=== PATIENT | female | born 1940 | race Caucasian/White ===

== ENCOUNTER 2017-10-22 05:44 | Emergency (ER) | payer MEDICARE, OTHER ==
[~2017-10-22] VITALS: Ht 165.1 cm; Wt 43.1 kg
--- NOTE | 2017-10-22 06:12 | ED Lower Extremity ---
General Chief Complaint: Lower Extremity Stated Complaint: BLOOD CLOTS Nursing Triage Note: Patient was transferred from [facility] secondary to right knee pain. Patient has an elevated d-dimer and elevated CRP. Patient is being evaluated for a possible DVT. Nursing Sepsis Screen: No Definite Risk Source: patient Exam Limitations: no limitations History of Present Illness Date Seen by Provider: Oct 22, 2017 Time Seen by Provider: 05:54 Initial Comments Patient presents to ER by EMS from [place], [place] ER where she was seen earlier today for complaint of right lower extremity pain and swelling around the knee. She has a history of 45 days ago she was getting up to answer the door holguin and stumbled and fell and broke her right arm as well as with a abrasion on her right knee. She was workup at that time and put into a splint for her right arm. This morning however she woke up with the new onset of pain and swelling on her knee and right lower extremity. Says her legs feel pleasant and difficult to lift. She went to the ER and they x-rayed her knee told her there was no fracture. They did some blood work which they told her was remarkable for a d-dimer of 3500 and CRP elevated 127. She was given some sort of pain medicine which is helping control her pain now. She's having no nausea. She has not taken her morning meds yet. Patient does have a history of clots. Fairly sedentary several days she says. Allergies and Home Medications Allergies Coded Allergies: No Known Drug Allergies (Unverified , 10/22/17) Patient Home Medication List Home Medication List Reviewed: Yes Constitutional: No chills, No diaphoresis, No fever; malaise, weakness EENTM: No hearing loss, No ear pain Respiratory: No cough, No short of breath Cardiovascular: No chest pain, No palpitations Gastrointestinal: No abdominal pain, No constipation, No diarrhea, No nausea Genitourinary: No decreased output, No discharge, No dysuria Musculoskeletal: see HPI; No back pain; joint pain Past Sfcyrrs-Ndybhb-Ynqlkf Hx Patient Social History Alcohol Use: Denies Use Recreational Drug Use: No Smoking Status: Never a Smoker Recent Foreign Travel: No Contact w/Someone Who Travel: No Recent Infectious Disease Expo: No Recent Hopitalizations: No Physical Abuse: No Sexual Abuse: No Seasonal Allergies Seasonal Allergies: No Past Medical History Surgeries: Yes (hemicolectomy) Respiratory: No Cardiac: Yes Hypertension Neurological: No Genitourinary: No Gastrointestinal: No Musculoskeletal: Yes (osteopenia, osteoarthritis) Endocrine: Yes Hypothyroidsim HEENT: Yes (keratoconjunctivitis sicca) Glaucoma Colon Psychosocial: No Nursing Suicide Risk Score: 0 Integumentary: No Physical Exam Vital Signs Vital Signs - First Documented 10/22/17 05:52 Temp 98.6 Pulse 94 Resp 14 B/P (MAP) 156/66 (96) Pulse Ox 98 O2 Delivery Room Air Capillary Refill : Less Than 3 Seconds Height, Weight, BMI Height: 5', 5.00" Weight: 95lbs oz, 43.648707al Method:Estimated ,BMI General Appearance: WD/WN, no apparent distress HEENT: PERRL/EOMI, pharynx normal Cardiovascular: normal peripheral pulses (bilateral posterior tibial pulses are 2 out of 4 symmetric), regular rate, rhythm Respiratory: chest non-tender, no respiratory distress, no accessory muscle use Gastrointestinal: normal bowel sounds, no organomegaly Hips: bilateral hip non-tender, bilateral hip normal inspection, bilateral hip normal range of motion, bilateral hip no evidence of injury Legs: right leg other (positive for Feliciano's sign) Knees: left knee non-tender, left knee normal inspection, left knee normal range of motion, left knee no evidence of injury; right knee bone tenderness, right knee joint effusion (moderate signs), right knee pain, right knee soft tissue tenderness, right knee swelling Neurologic/Tendon: normal sensation, normal motor functions, normal tendon functions, responds to pain Neurologic/Psychiatric: no motor/sensory deficits, alert, oriented x 3 Skin: normal color, warm/dry Progress/Results/Core Measures Results/Orders My Orders Orders - MAURA LAND Venous Lower Ext Rt (10/22/17 06:05) Ua Culture If Indicated (10/22/17 06:05) Ketorolac Injection (Toradol Injection) (10/22/17 08:15) General/Regular (10/22/17 Breakfast) Medications Given in ED Current Medications Medications Dose Ordered Sig/Giovanni Route Start Time Stop Time Status Last Admin Dose Admin Ketorolac Tromethamine 15 mg ONCE ONCE IM 10/22/17 08:15 10/22/17 08:16 DC 10/22/17 08:20 15 MG Vital Signs/I&O 10/22/17 05:52 Temp 98.6 Pulse 94 Resp 14 B/P (MAP) 156/66 (96) Pulse Ox 98 O2 Delivery Room Air Blood Pressure Mean: 96 Progress Progress Note #1: Time: 07:55 Progress Note Patient got up to go to the bathroom with 2 nurse assist and standby walking assessed. She is having a little more pain now so we have offered her some ketorolac IM. We have discussed doing some inpatient acute rehabilitation for physical therapy given her knee effusion and her daughter is in favor of this so we called the air you and no one was available to 9:00. We called and left messages with the liaison's and will get her pain under better control of her comfortable while waiting for a consult. Progress Note #2: Time: 10:26 Progress Note Patient has met with the acute rehabilitation unit for sameer Aguilar and elected to utilize their services and I think she would be an excellent candidate for inpatient rehabilitation. Diagnostic Imaging Diagonstic Imaging: Xray Plain Films/CT/US/NM/MRI: knee (right) Comments Study from outside hospital 10/22/17 shows 3 view right knee soft tissue swelling and joint effusion seen specifically in the lateral view. There is an accessory ossicle in the posterior compartment. there are no acute fractures. Diagonstic Imaging: Xray Plain Films/CT/US/NM/MRI: other (right wrist) Comments Right wrist from 10/22/17 outside hospital CD. No evidence of an acute fracture. Reviewed: Reviewed by Me Diagonstic Imaging: Xray Plain Films/CT/US/NM/MRI: knee (r) Comments Shoulder 10/17/2017 on CD from outside hospital: Comminuted minimally displaced fracture of the right proximal humerus involving the surgical neck and both tuberosities without significant displacement or angulation of the fracture fragments. Mild acromioclavicular osteoarthritis. Reviewed: Other (outside report reviewed on cd), Reviewed by Me Diagonstic Imaging: Ultrasound Plain Films/CT/US/NM/MRI: leg (r venous) Comments No evidence of DVT right leg. NAME: ALISHA YEUNG [facility] REC#: [id number] PHYSICIAN: MAURA LAND MD CC: SALAS OLIVA DO; MAURA LAND Page 1 of 1 RADIOLOGY REPORT VIA [facility], [facility]. [place], [place] CC: SALAS OLIVA DO; MAURA LAND Page 1 of 1 RADIOLOGY REPORT NAME: ALISHA YEUNG [facility] REC#: [id number] PT STATUS: REG ER : 1940 PHYSICIAN: MAURA LAND MD ADMIT DATE: 10/22/17/ER Signed Date of Exam: 10/22/17 US VENOUS LOWER EXT RT INDICATION: Right leg pain TECHNIQUE: Grayscale with color-flow and Doppler waveform evaluation of the right lower extremity deep venous system. CORRELATION STUDY: None FINDINGS: Color and grayscale sonographic images demonstrate no intraluminal defect within the visualized portion of the common femoral, superficial femoral and/or popliteal veins to suggest thrombus formation. These vessels demonstrate normal response to compression and augmentation. No soft tissue fluid collection. IMPRESSION: 1. Negative for deep venous thrombosis of the right leg. Dictated by: Dictated on workstation # [id number] Dict: 10/22/17744 Trans: 10/22/17744 Interpreted by: SALAS OLIVA DO Electronically signed by: SALAS OLIVA DO 10/22/1745 Reviewed: Reviewed by Me Departure Communication (Admissions) Time/Spoke to Admitting Phy: 10:30 Discussed the case and labs imaging with Dr. Muñoz and he is more than happy to admit the patient to inpatient rehabilitation. Impression Primary Impression: Fall Qualified Codes: W19.XXXD - Unspecified fall, subsequent encounter Additional Impressions: Effusion, right knee Physical debility Disposition: ADMITTED INPATIENT Condition: Stable Admissions Decision to Admit Reason: Admit from ER (General) Decision to Admit/Date: Oct 22, 2017 Time/Decision to Admit Time: 10:30 MAURA LAND Oct 22, 2017 06:12
--- NOTE | 2017-10-22 07:47 | Diagnostic Imaging Report ---
INDICATION: Right leg pain TECHNIQUE: Grayscale with color-flow and Doppler waveform evaluation of the right lower extremity deep venous system. CORRELATION STUDY: None FINDINGS: Color and grayscale sonographic images demonstrate no intraluminal defect within the visualized portion of the common femoral, superficial femoral and/or popliteal veins to suggest thrombus formation. These vessels demonstrate normal response to compression and augmentation. No soft tissue fluid collection. IMPRESSION: 1. Negative for deep venous thrombosis of the right leg. Dictated by: Dictated on workstation # [id number]
[2017-10-22] MEDS ORDERED: KETOROLAC 30 MG/ML VIAL IM ONE (08:15)
[2017-10-22 11:11] VITALS: BP 133/60
[2017-10-22] MEDS ORDERED: DILT180C90 PO (15:51)
[2017-10-22] MEDS ORDERED: POTA10TA10 PO (15:51)
[2017-10-22] MEDS ORDERED: CARB15DR58 OU (15:51)
[2017-10-22] MEDS ORDERED: LEVO125T6 PO (15:51)
[2017-10-22] MEDS ORDERED: FISH1CAP3 PO (15:51)
[2017-10-22] MEDS ORDERED: MULT1TAB65 PO (15:51)
[2017-10-22] MEDS ORDERED: CLON1PAT TD (15:51)
[2017-10-22] MEDS ORDERED: MINE3.5O29 OU (15:51)
[2017-10-22] MEDS ORDERED: GARL10002 PO (15:51)
[2017-10-22] MEDS ORDERED: SIMV40TA4 PO (15:51)
[2017-10-22] MEDS ORDERED: FOLI0.8C PO (15:51)
[2017-10-22] MEDS ORDERED: CALC1TAB4 PO (15:51)
[2017-10-22] MEDS ORDERED: CYAN10006 PO (15:51)
[2017-10-22] MEDS ORDERED: LISI-552 PO (15:51)
[2017-10-22] MEDS ORDERED: SENN-109 PO (15:51)
[2017-10-22] MEDS ORDERED: POTA10TA36 PO (15:51)
[2017-10-22] MEDS ORDERED: BISA5TAB49 PO (15:51)
[2017-10-22] MEDS ORDERED: CARB10DR OU (15:51)
[2017-10-22] MEDS ORDERED: ASPI-983 PO (15:51)
[2017-10-22] MEDS ORDERED: LISI40TA PO (16:18)
[2017-10-22] MEDS ORDERED: TRAM50TA2 PO (16:18)
[2017-10-22] MEDS ORDERED: DLT90CCR PO (16:18)
[2017-10-22] MEDS ORDERED: CLON1PAT34 TD (16:18)
[2017-10-22] MEDS ORDERED: CLON1PAT33 TD (16:38)
[2017-11-01] MEDS ORDERED: HYDR-3923 PO (16:58)
[2017-11-01] MEDS ORDERED: LEVO125T PO (16:58)
[2017-11-01] MEDS ORDERED: TRAM50TA2 PO (16:58)
[2017-11-01] MEDS ORDERED: LISI-556 PO (16:58)
[2017-11-01] MEDS ORDERED: ACET-77 PO (16:58)
== END 2017-10-22 11:12 | disposition other institution (70) ==
LOC: ER 05:47
DX: M25.461 Effusion, right knee (principal); R54 Age-related physical debility; I10 Essential (primary) hypertension; E03.9 Hypothyroidism, unspecified; Z90.89 Acquired absence of other organs
CPT/HCPCS: 96372

== ENCOUNTER 2017-10-22 10:30 | Inpatient (IN) | payer MEDICARE, OTHER ==
[~2017-10-22] VITALS: Ht 165.1 cm; Wt 59.1 kg
[2017-10-22 11:27] VITALS: BP 165/72
[2017-10-22] MEDS ORDERED: ACETAMINOPHEN 500 MG TAB (TYLENOL) PO PRN (11:45)
--- NOTE | 2017-10-22 12:21 | Physical Therapy Evaluation ---
PT Evaluation-General Medical Diagnosis Admission Date Oct 22, 2017 at 10:30 Medical Diagnosis: R humerus fx, R knee effusion Onset Date: Oct 17, 2017 Therapy Diagnosis Therapy Diagnosis: impaired mobility, strength, endurance, balance Height/Weight Height (Feet): 5 Height (Inches): 5.00 Weight (Pounds): 123 Weight (Ounces): 6.0 Weight Bear Status Right Lower Extremity: Right Weight Bearing/Tolerated Referral Physician: Toni Reason for Referral: Evaluation/Treatment Medical History Pertinent Medical History: HTN, Hypothroidism Additional Medical History hemicolectomy, osteopenia, osteoarthritis, glaucoma Current History Patient fell at home and broke proximal right humerus and she wears an immobilizer, she states she is not to move her right shoulder but can move her elbow and wrist. Patient recently developed right knee pain and swelling. Reviewed History: Yes Social History Home: Single Level Entry Into Home: Stairs Without Railing PT Steps Into Home: 2 Patient states she has a grab bar to hold onto when going up the stairs to enter the home. Prior/Core FIM Prior Level of Function Functional [place] Measure 0=Not Assessed/NA 4=Minimal Assistance 1=Total Assistance 5=Supervision or Setup 2=Maximal Assistance 6=Modified [place] 3=Moderate Assistance 7=Complete [place] Bed Mobility: 7 Transfers (B,C,W/C) (FIM): 7 Gait: 7 PT Evaluation-Current Subjective Patient in bed pre tx, agrees to PT, no complaints of pain at rest. Will be co- treating with OT due to poor patient mobility and endurance, and safety concerns. Pt/Family Goals to be independent at home Objective Patient Orientation: Person, Place, Situation right arm immobilizer ROM/Strength ROM Lower Extremities right knee flexion 50 degrees, extension +10 degrees Strenght Lower Extremities RLE not tested due to pain, LLE hip flexion 4/5, knee flexion 4/5, knee extension 4+/5, dorsiflexion 5/5 Neuromuscular (Tone, Coordination, Reflexes) NT Sensory Vision: Blind Legally Hearing: Functional Sensation Right Lower Extremit: Intact Sensation Left Lower Extremity: Intact Transfers Functional [place] Measure 0=Not Assessed/NA 4=Minimal Assistance 1=Total Assistance 5=Supervision or Setup 2=Maximal Assistance 6=Modified [place] 3=Moderate Assistance 7=Complete IndependenceIRFPAI Quality Coding Scale 6 Independent with activity with or without an assistive device 5 Patient requires set up or clean up by helper. Patient completes activity by themselves 4 Supervision or touching assist (CGA). [place] provide cues , steadying assist 3 The helper provides less than half the effort to complete the activity 2 The helper provides more than half the effort to complete the activity 1 Dependent. The helper does all the effort to complete an activity 7 Patient refused to complete or attempt activity 9 The patient did not perform the activity before the current illness or injury 88 Not attempted due to Medical conditions or safety concerns Transfers (B, C, W/C) (FIM): 3 Scootin Rollin Roll Left to Right (QC): 3 Supine to/from Sit: 4 Sit to/from Stand: 3 bed t/f WC(FIM only if WC use): 4 Sit to Lying (QC): 3 Lying to Sitting/Side of Bed(Q: 3 Sit to Stand (QC): 2 Chair/Szs-rf-Bfenb Xfer(QC): 3 Patient performs bed mobility and supine <-> sit with min assist, sit to stand with mod assist from lower surfaces, and transfers with CGA. She needs a lot of cues for positioning, safety, and direction, a lot of it due to her poor vision. Gait Does the Patient Walk?: Yes Mode of Locomotion: Walk Anticipated Mode of Locomotion: Walk Gait (FIM): 1 Walk 10 feet (QC): 4 Distance: 10' Gait Level of Assist: 4 Gait Persons Needed: 1 Gait Assistive Device: Walker Pancho Comments/Gait Description Patient ambulated 10' with a hemiwalker with min assist. She ambulates very slowly, inches at a time. Feet have poor clearance and poor heel strike, and has flexed knees. Patient needs constant cues for direction and safety. Stairs If not tested on admit;explain Patient does not have the endurance or strength to perform stairs at this time. Right knee is too painful, she can barely ambulate. Balance Sitting Static: Good Sitting Dynamic: Good Standing Static: Fair Standing Dynamic: Fair Treatment Patient was toileted with mod assist. Assessment/Needs Patient has impaired mobility, strength, endurance, balance, limited ROM in right knee. She is at high risk for a fall. Rehab Potential: Fair PT Short Term Goals Short Term Goals Time Frame: Oct 29, 2017 Transfers (B,C,W/C) (FIM): 4 Gait (FIM): 1 Gait Distance Comment: 40' Gait Level of Assist: 4 Gait Assistive Device: Walker Pancho PT Breeder Service Technician Goals Breeder Service Technician Goals PT Breeder Service Technician Goals Time Frame: Nov 12, 2017 Transfers (B,C,W/C) (FIM): 5 Sit to Lying (QC): 4 Lying-Sitting on Side/Bed(QC): 4 Sit to Stand (QC): 4 Rollin Roll Left to Right (QC): 4 Chair/Kmu-kh-Akmoi Xfer(QC): 4 Car Transfer (QC): 4 Gait (FIM): 2 Distance: 50' Walk 10 feet (QC): 4 Walk 10ft-Uneven Surface(QC): 4 Walk 50ft with 2 Turns (QC): 4 Walk 150 ft (QC): 4 Gait Level of Assist: 4 Gait Assistive Device: Walker Pancho Stairs (FIM): 1 # of Steps: 1 1 Step (curb) (QC): 3 Stairs Level Of Assist: 4 PT Plan Problem List Problem List: Activity Tolerance, Functional Strength, Safety, Balance, Gait, Transfer, Bed Mobility, ROM Treatment/Plan Treatment Plan: Continue Plan of Care Treatment Plan: Bed Mobility, Concurrent Therapy, Education, Functional Activity Ritchie, Functional Strength, Group Therapy, Gait, Safety, Therapeutic Exercise, Transfers Treatment Duration: Nov 12, 2017 Frequency: At least 5 of 7 days/Wk (IRF) Estimated Hrs Per Day: 1.5 hours per day Patient and/or Family Agrees t: Yes Safety Risks/Education Patient Education: Gait Training, Transfer Techniques, Reviewed Precautions, Correct Positioning, Safety Issues Teaching Recipient: Patient Teaching Methods: Demonstration, Discussion Response to Teaching: Reinforcement Needed Discharge Recommendations Plan Patient will perform bed mobility and transfer training, balance and endurance training, functional strengthening, stair training, gait training, and education , to improve functional mobility and independence at home. Therapy D/C Recommendations: Home w/ Family Support, [facility] (TCU/[facility]) Time/GCodes Time In: 1121 Time Out: 1213 Total Billed Treatment Time: 41 Total Billed Treatment 1 visit EVM 10' GT 31' PT evaluation from 7439-2356, OT evaluation from 0713-4310. Cotreated from 1142 -1213 for 31 min of co-treat. JOSÉ MIGUEL DOOLEY PT Oct 22, 2017 12:20
--- NOTE | 2017-10-22 12:59 | Occupational Therapy Eval ---
OT Evaluation-General/PLF Medical Diagnosis Admission Date Oct 22, 2017 at 10:30 Medical Diagnosis: R humerus fx, R knee effusion Onset Date: Oct 17, 2017 Therapy Diagnosis Therapy Diagnosis: decr self care, wakness, decr funct use R UE, decr funct mob Height/Weight Height (Feet): 5 Height (Inches): 5.00 Weight (Pounds): 123 Weight (Ounces): 6.0 Precautions Precautions/Isolations: Standard Precautions Referral Physician: Toni Referral Reason: Evaluation/Treatment Medical History Pertinent Medical History: HTN, Hypothroidism, OA Additional Medical History Glaucoma, colon cancer, hemicholectomy, osteopenia. keratoconjunctivitis sicca. Hx blood clots Current History Patient fell at home and broke proximal right humerus. She wears an immobilizer and states she is not to move her right shoulder but can move her elbow and wrist. Patient recently developed right knee pain and swelling. Reviewed History: Yes Social History Home: Single Level Current Living Status: Alone Entry Into Home: Stairs Without Railing Steps Into Home: 2 ADL-Prior Level of Function ADL PLOF Comments Pt reported that she has been able to manage her basic self care needs. Because of her glaucoma, she no longer drives but is able to read large print and watch TV. She said that she can see many things in a room but that they are blurry. She is a retired school paraprofessional DME/Equipment: Bath Chair, Shower Hose Weaving Professor, Tall Toilet Drive Self: No OT Current Status Subjective Pt seen in room, up in bed, agreeable to OT. Pt stated that she doesn't have any pain when she is not moving but was unable to rate pain when she gets up. Appearance Alert, cooperative Mental Status/Objective Patient Orientation: Person, Place, Time (unsure of current date), Situation Attachments: Other-See Comments (Humeral immobilizer) Current Glasses/Contacts: Yes Hearing Aids: No Dentures/Partials: Yes (upper and lower) Hand Dominance: Right Upper Extremity ROM L UE WFL grossly. R UE limited at ends of range for elbow, forearm, wrist and fingers - due to edema Upper Extremity Sensation Pt reported no problems with sensation Upper Extremity Strength L UE grossly 4/5. R UE not tested but she moved uncomfortable out of immobilizer (elbow and distal) Edema: Significant edema R UE beginning at elbow and then distal ADL-Treatment ADL-Current Co-treat with PT due to decreased activity tolerance, pain that was reported prior to eval, significantly decreased functional mobility and limited UE use. OT worked on R UE, toilet transfers and toileting and PT worked on LEs, transfers and mobility. Pt was able to get up out of bed with min assist and walked very slowly to bathroom, using padilal cane. She needed mod assist to sit down on toilet and to get back up, limited by pain in R knee and inability to reach back with R hand. She used grab bar on L side but had difficulty with pulling up. BSc placed over toilet so that the next time she will be able to push up from toilet and reach back with L UE when sitting. She needed CGA when standing to manage clothing and was able to do hygiene, with trouble tearing off toilet paper with just one hand. PT reported giving her foam handle for silverware for L UE and daughter set up food - min assist before foam handle. Pt left up in recliner, R arm supported on pillow, legs elevated, all needs met. Functional [place] Measure 0=Not Assessed/NA 4=Minimal Assistance 1=Total Assistance 5=Supervision or Setup 2=Maximal Assistance 6=Modified [place] 3=Moderate Assistance 7=Complete IndependenceIRFPAI Quality Coding Scale 6 Independent with activity with or without an assistive device 5 Patient requires set up or clean up by helper. Patient completes activity by themselves 4 Supervision or touching assist (CGA). [place] provide cues , steadying assist 3 The helper provides less than half the effort to complete the activity 2 The helper provides more than half the effort to complete the activity 1 Dependent. The helper does all the effort to complete an activity 7 Patient refused to complete or attempt activity 9 The patient did not perform the activity before the current illness or injury 88 Not attempted due to Medical conditions or safety concerns Eating (FIM): 4 (Min assist, provided with foam builtup handle, setup to cut food) Eating (QC): 3 Toileting (FIM): 4 (CGA to manage clothing. Difficulty tearig off toilet paper. Tall toilet) Toileting Hygiene (QC): 4 (CGA) Toilet/Commode Transfer (FIM): 3 (Mod assist getting on/off tall toilet, grab bar on L side) Toilet Transfer (QC): 3 Education OT Patient Education: Modified ADL techniques, Purpose of tx/functional activities, Rehab process, Safety issues, Transfer techniques Teaching Recipient: Patient Teaching Methods: Demonstration, Discussion Response to Teaching: Verbalize Understanding, Return Demonstration, Reinforcement Needed OT Short Term Goals Short Term Goals Time Frame: Oct 29, 2017 Eating(FIM): 5 Toilet/Commode Transfer(FIM): 4 Additional Short Term Goals: 1-Demonstrate ADL Tasks, 2-Verbalize Understanding , 3-ImproveStrength/Ritchie 1=Demonstrate adherence to instructed precautions during ADL tasks. 2=Patient will verbalize/demonstrate understanding of assistive devices/ modifications for ADL. 3=Patient will improve strength/tolerance for activity to enable patient to perform ADL's. OT Alf Goals Patient Intake Representative Goals Time Frame: Nov 09, 2017 Eating (FIM): 5 Eating (QC): 5 Groomin Oral Hygiene (QC): 5 Bathing(FIM): 4 Shower/Bathe Self (QC): 3 Upper Body Dressing(FIM): 5 Upper Body Dressing (QC): 5 Lower Body Dressing(FIM): 5 Lower Body Dressing (QC): 5 On/Off Footwear (QC): 5 Toileting(FIM): 6 Toileting Hygiene (QC): 6 Toilet/Commode Transfer(FIM): 6 Toilet/Commode Transfer (QC): 6 Shower Transfer(FIM): 5 Additional Goals: 1-Demonstrate ADL Tasks, 2-Verbalize Understanding, 3- ImproveStrength/Ritchie 1=Demonstrate adherence to instructed precautions during ADL tasks. 2=Patient will verbalize/demonstrate understanding of assistive devices/ modifications for ADL. 3=Patient will improve strength/tolerance for activity to enable patient to perform ADL's. OT Education/Plan Problem List/Assessment Assessment: Decreased UE Strength, Dependent Transfers, Impaired Funct Balance , Impaired Self-Care Skills, Restricted Funct UE ROM Pt would benefit from skilled OT to increase her independence in basic self care to allow her to safely return home wit family support Discharge Recommendations Plan/Recommendations: Continue POC Treatment Plan/Plan of Care Treatment,Training & Education: Yes Patient would benefit from OT for education, treatment and training to promote independence in ADL's, mobility, safety and/or upper extremity function for ADL' s. Plan of Care: ADL Retraining, Functional Mobility, Group Exercise/Act as Ind ( education, exercise, act tolerance, functional mobility, R UE funct use, socialization), UE Funct Exercise/Act, UE Neuromus Re-Ed/Coord Treatment Duration: Nov 09, 2017 Frequency: At least 5 of 7 days/Wk (IRF) Estimated Hrs Per Day: 1.5 hours per day Agreement: Yes Rehab Potential: Fair Time/GCodes Start Time: 11:33 Stop Time: 12:13 Total Time Billed (hr/min): 41 Billed Treatment Time visit, evaluation moderate intensity 10 minutes, co-tx with PT 15 minutes functional activity, 16 minutes ADL MARIOLA COTTRELL OT Oct 22, 2017 12:59
--- NOTE | 2017-10-22 13:17 | ST Cognitive Linguistic Eval ---
Speech Evaluation-General Medical Diagnosis R humerus fx, R knee effusion Onset Date: Oct 17, 2017 Therapy Diagnosis Therapy Diagnosis: Cognitive Linguistic Skills WNL Referral Referring Physician: Dr. Stephen Muñoz Reason for Referral: Evaluation/Treatment Cognitive Evaluation Medical History Pertinent Medical History: HTN, Hypothroidism, OA Reviewed History: Yes Speech PLF-Current Status Prior Level of Function The patient denied new onset of cognitive, speech, or language deficits. Per patient, "Sometimes I walk in one room and forget why I walked in there but that doesn't happen anymore than it always did." Subjective The patient was seated upright in recliner upon entrance. The patient greeted the clinician and was agreeable to participation in the cognitive evaluation. Language Eval: Auditory Comprehends Simple Yes/No Ques: Functional Indent/Objects Multiple Michael: Functional Ident/Pics in Multiple Michael: Functional Follows 1-Step Commands: Functional Follows General Conversations: Functional The patient intermittently displays a delay in responses, however, consistently responds appropriately to questions. Language Eval: Verbal Language Completes Spontaneous Greeting: Functional Produces Auto, Serial Info: Functional Imitates Simple Words/Phrases: Functional Word Finding: Mild Requests Basic Needs: Functional States Basic Personal Info: Functional Expresses Complex Ideas: Functional Language Evaluation: Reading Per patient, she is unable (or limited) to read due to her poor vision. Cognitive Patient Orientation The patient is independently oriented to month, day of week, and year. Objective Cognitive Domain Attention: WNL Memory: Mild (Mild cueing required for recall.) Problem Solving: Mild (Minimal to mild cueing required for increased accuracy.) Objective Impression The patient demonstrated cognitive linguistic skills grossly within normal limits and baseline per patient and daughter. Communication/Social Cognition Comprehension: 5 Expression: 6 Social Interaction: 6 Problem Solvin Memory: 5 Speech Patient Assess Expression of Ideas/Wants: Exhibits (3) Understanding Verbal Content: Usually Understands (3) Brief Interview-Mental Status: Yes Repetition of Three Words: Three (3) Temporal Orientation: Year: Correct (3) Temporal Orientation: Month: Accurate within 5 days(2) Temporal Orientation: Day: Correct (1) Recall : Wear to say "Sock": Yes,after cueing (1) Recall : Color: Yes, after cueing (1) Recall : Bed: No, could not recall (0) Speech-Plan Treatment Plan Speech Therapy Treatment Plan: Discontinue ST No ST warranted. Frequency: Modified Program (IRF) (No ST warranted.) Estimated Hrs Per Day: Other (No ST warranted.) Rehab Potential: Fair Safety Risks/Education Teaching Recipient: Patient Teaching Methods: Discussion Response to Teaching: Verbalize Understanding Education Topics Provided: Results, Recommendations, Plan of Care Time Speech Therapy Time In: 12:52 Speech Therapy Time Out: 13:10 Total Billed Time: 18 Billed Treatment Time 1, ALLEN GUTIERREZ Oct 22, 2017 13:17
--- NOTE | 2017-10-22 14:07 | Physical Therapy Daily Note ---
PT Daily Note-Current Subjective Patient agrees to PT. Pain Location: Right Location Body Site: Knee Pain Description: Ache Mental Status Patient Orientation: Normal For Age Transfers Functional [place] Measure 0=Not Assessed/NA 4=Minimal Assistance 1=Total Assistance 5=Supervision or Setup 2=Maximal Assistance 6=Modified [place] 3=Moderate Assistance 7=Complete IndependenceIRFPAI Quality Coding Scale 6 Independent with activity with or without an assistive device 5 Patient requires set up or clean up by helper. Patient completes activity by themselves 4 Supervision or touching assist (CGA). [place] provide cues , steadying assist 3 The helper provides less than half the effort to complete the activity 2 The helper provides more than half the effort to complete the activity 1 Dependent. The helper does all the effort to complete an activity 7 Patient refused to complete or attempt activity 9 The patient did not perform the activity before the current illness or injury 88 Not attempted due to Medical conditions or safety concerns Transfers (B, C, W/C) (FIM): 4 Scootin Sit to/from Stand: 4 Sit to Stand (QC): 4 Car Transfer (QC): 5 Weight Bearing Right Lower Extremity: Right Weight Bearing/Tolerated Gait Training Does the Patient Walk?: Yes Gait (FIM): 1 Distance (FIM): 1=up to 49 ft Distance: 30' x 4 Walk 10 feet (QC): 4 Walk 50 ft with 2 Turns(QC): 4 Walking 10ft/uneven surface-QC: 4 Gait Level of Assist: 4 Gait Persons Needed: 1 Gait Assistive Device: Walker Pancho very slow, decreased cha, NBOS, shuffle gait sequence Stair Training Stair Training: Handrails/: 1 handrail Stairs (FIM): 2 #of Steps: 4 1 Step (curb) (QC): 4 4 Steps (QC): 4 12 Steps (QC): 88 Stairs: Pattern: Step to Level of Assist: 4 Treatments Patient seen x 10 min [id number] for adaptive eating equipment to improve ability to perform this task independently. Assessment Patient requires time to complete all functional tasks due to anxiety/fear per her report. Patient reports she did not feel like this until the pain medication issued this a.m. RN notified and aware. PT Short Term Goals Short Term Goals Time Frame: Oct 29, 2017 Transfers (B,C,W/C) (FIM): 4 Gait (FIM): 1 Gait Distance Comment: 40' Gait Level of Assist: 4 Gait Assistive Device: Walker Pancho PT Longterm Goals Sow Farm Barn Technician Goals PT Longterm Goals Time Frame: Nov 12, 2017 Transfers (B,C,W/C) (FIM): 5 Sit to Lying (QC): 4 Lying-Sitting on Side/Bed(QC): 4 Sit to Stand (QC): 4 Rollin Roll Left to Right (QC): 4 Chair/Rpa-gx-Batsn Xfer(QC): 4 Car Transfer (QC): 4 Gait (FIM): 2 Distance: 50' Walk 10 feet (QC): 4 Walk 10ft-Uneven Surface(QC): 4 Walk 50ft with 2 Turns (QC): 4 Walk 150 ft (QC): 4 Gait Level of Assist: 4 Gait Assistive Device: Walker Pancho Stairs (FIM): 1 # of Steps: 1 1 Step (curb) (QC): 3 Stairs Level Of Assist: 4 PT Plan Treatment/Plan Treatment Plan: Continue Plan of Care Treatment Plan: Bed Mobility, Concurrent Therapy, Education, Functional Activity Ritchie, Functional Strength, Group Therapy, Gait, Safety, Therapeutic Exercise, Transfers Treatment Duration: Nov 12, 2017 Frequency: At least 5 of 7 days/Wk (IRF) Estimated Hrs Per Day: 1.5 hours per day Patient and/or Family Agrees t: Yes Time/GCodes Time In: 1230 Time Out: 1400 Total Billed Treatment Time: 60 Total Billed Treatment 2 visit FA 10 min ([id number]) GT x 2 35 min ([id number]) FA 15 min ([id number]) HUAN MENDIOLA PT Oct 22, 2017 14:07
--- NOTE | 2017-10-22 15:29 | Occupational Ther Daily Note ---
OT Current Status-Daily Note Subjective Pt seen in room, up in w/c, agreeable to OT. Pt reported at end of tx that she didn't need anything for pain Appearance Alert, cooperative Mental Status/Objective Functional [place] Measure 0=Not Assessed/NA 4=Minimal Assistance 1=Total Assistance 5=Supervision or Setup 2=Maximal Assistance 6=Modified [place] 3=Moderate Assistance 7=Complete [place] ADL-Treatment Functional [place] Measure 0=Not Assessed/NA 4=Minimal Assistance 1=Total Assistance 5=Supervision or Setup 2=Maximal Assistance 6=Modified [place] 3=Moderate Assistance 7=Complete IndependenceIRFPAI Quality Coding Scale 6 Independent with activity with or without an assistive device 5 Patient requires set up or clean up by helper. Patient completes activity by themselves 4 Supervision or touching assist (CGA). [place] provide cues , steadying assist 3 The helper provides less than half the effort to complete the activity 2 The helper provides more than half the effort to complete the activity 1 Dependent. The helper does all the effort to complete an activity 7 Patient refused to complete or attempt activity 9 The patient did not perform the activity before the current illness or injury 88 Not attempted due to Medical conditions or safety concerns Other Treatment Worked with R UE movement, edema management. Pt moved RUE reluctantly from elbow and distal but, as she did repetitive movements and edema was mobilized, she moved faster and through greater range. Provided with isotoner glove and tubigrip gentle compression covering, placed on R hand and forearm. pt also did AROM and was able to mobilize edema. Pt given pink foam hand senior managing director for active grasp R hand. Pt transferred to bed with min assist and R arm was supported on pillow, with pt encouraged to gently stretch R elbow into extension. $ rails up, call light in place, all needs met. Education OT Patient Education: Purpose of tx/functional activities Teaching Recipient: Patient Teaching Methods: Demonstration, Discussion Response to Teaching: Verbalize Understanding, Return Demonstration OT Short Term Goals Short Term Goals Time Frame: Oct 29, 2017 Eating(FIM): 5 Toilet/Commode Transfer(FIM): 4 Additional Short Term Goals: 1-Demonstrate ADL Tasks, 2-Verbalize Understanding , 3-ImproveStrength/Ritchie 1=Demonstrate adherence to instructed precautions during ADL tasks. 2=Patient will verbalize/demonstrate understanding of assistive devices/ modifications for ADL. 3=Patient will improve strength/tolerance for activity to enable patient to perform ADL's. OT Correction Goals Superannuation Funds Manager Goals Time Frame: Nov 09, 2017 Eating (FIM): 5 Eating (QC): 5 Groomin Oral Hygiene (QC): 5 Bathing(FIM): 4 Shower/Bathe Self (QC): 3 Upper Body Dressing(FIM): 5 Upper Body Dressing (QC): 5 Lower Body Dressing(FIM): 5 Lower Body Dressing (QC): 5 On/Off Footwear (QC): 5 Toileting(FIM): 6 Toileting Hygiene (QC): 6 Toilet/Commode Transfer(FIM): 6 Toilet/Commode Transfer (QC): 6 Shower Transfer(FIM): 5 Additional Goals: 1-Demonstrate ADL Tasks, 2-Verbalize Understanding, 3- ImproveStrength/Ritchie 1=Demonstrate adherence to instructed precautions during ADL tasks. 2=Patient will verbalize/demonstrate understanding of assistive devices/ modifications for ADL. 3=Patient will improve strength/tolerance for activity to enable patient to perform ADL's. OT Education/Plan Problem List/Assessment Pt would benefit from skilled OT to increase her independence in basic self care to allow her to safely return home wit family support Discharge Recommendations Plan/Recommendations: Continue POC Treatment Plan/Plan of Care Patient would benefit from OT for education, treatment and training to promote independence in ADL's, mobility, safety and/or upper extremity function for ADL' s. Plan of Care: ADL Retraining, Functional Mobility, Group Exercise/Act as Ind ( education, exercise, act tolerance, functional mobility, R UE funct use, socialization), UE Funct Exercise/Act, UE Neuromus Re-Ed/Coord Treatment Duration: Nov 09, 2017 Frequency: At least 5 of 7 days/Wk (IRF) Estimated Hrs Per Day: 1.5 hours per day Agreement: Yes Rehab Potential: Fair Time/GCodes Start Time: 14:00 Stop Time: 14:45 Total Time Billed (hr/min): 45 Billed Treatment Time visit, 45 minutes neuromotor MARIOLA COTTRELL OT Oct 22, 2017 15:29
[2017-10-22] MEDS ORDERED: LEVO125T6 PO (15:51)
[2017-10-22] MEDS ORDERED: ASPI-983 PO (15:51)
[2017-10-22] MEDS ORDERED: POTA10TA36 PO (15:51)
[2017-10-22] MEDS ORDERED: LISI-552 PO (15:51)
[2017-10-22] MEDS ORDERED: FISH1CAP3 PO (15:51)
[2017-10-22] MEDS ORDERED: CLON1PAT TD (15:51)
[2017-10-22] MEDS ORDERED: CYAN10006 PO (15:51)
[2017-10-22] MEDS ORDERED: GARL10002 PO (15:51)
[2017-10-22] MEDS ORDERED: MINE3.5O29 OU (15:51)
[2017-10-22] MEDS ORDERED: BISA5TAB49 PO (15:51)
[2017-10-22] MEDS ORDERED: FOLI0.8C PO (15:51)
[2017-10-22] MEDS ORDERED: SENN-109 PO (15:51)
[2017-10-22] MEDS ORDERED: DILT180C90 PO (15:51)
[2017-10-22] MEDS ORDERED: MULT1TAB65 PO (15:51)
[2017-10-22] MEDS ORDERED: CARB15DR58 OU (15:51)
[2017-10-22] MEDS ORDERED: CARB10DR OU (15:51)
[2017-10-22] MEDS ORDERED: CALC1TAB4 PO (15:51)
[2017-10-22] MEDS ORDERED: POTA10TA10 PO (15:51)
[2017-10-22] MEDS ORDERED: SIMV40TA4 PO (15:51)
[2017-10-22] MEDS ORDERED: TRAM50TA2 PO (16:18)
[2017-10-22] MEDS ORDERED: DLT90CCR PO (16:18)
[2017-10-22] MEDS ORDERED: LISI40TA PO (16:18)
[2017-10-22] MEDS ORDERED: CLON1PAT34 TD (16:18)
[2017-10-22] MEDS ORDERED: CLON1PAT33 TD (16:38)
[2017-10-22] MEDS: IBUPROFEN 800 MG (MOTRIN) TAB PO PRN (17:49)
[2017-10-22 18:00] VITALS: BP 166/81
[2017-10-22 19:04] LABS: BILIRUBIN,URINE NEGATIVE (NEGATIVE); CLARITY,URINE CLEAR; COLOR,URINE YELLOW; GLUCOSE, URINE (UA) NEGATIVE (NEGATIVE); KETONES,URINE NEGATIVE (NEGATIVE); LEUKOCYTE ESTERASE ,URINE 1+ (NEGATIVE); NITRITE,URINE NEGATIVE (NEGATIVE); PH,URINE 6 (5-9); PROTEIN,URINE 2+ (NEGATIVE); UROBILINOGEN,URINE 1 MG/DL (NORMAL)
[2017-10-22 19:13] LABS: BACTERIA,URINE TRACE /HPF; SQUAMOUS EPITHELIAL CELL,UR 0-2 /HPF; WBC,URINE RARE /HPF
--- NOTE | 2017-10-22 19:34 | HISTORY AND PHYSICAL ---
DATE OF SERVICE: 10/22/2017 CHIEF COMPLAINT: Falls and constipation, difficulty managing at home alone. HISTORY OF PRESENT ILLNESS: The patient is a 77-year-old female who had been independent and living in her own home in [place], [place], who fell on 10/17/2017 and was seen in the ED at [facility] regarding right lower limb pain. She was found to have a knee abrasion on the right knee with some swelling. No fracture was noted on radiographs. The patient had been sedentary for several days. She will return home with pain medication, but was not able to manage alone. She has family nearby in [place], [place] as well as [place]. She was brought to the ED at [facility] and referred to inpatient rehabilitation unit. Several weeks ago, she had a fall. When she got to answer the doorbell, she stumbled and fell and broke her right humerus, which is managed with immobilizer. She is right-handed. Currently, she is mod assist for transfers, min assist for gait with a padilla walker. She is complaining of constipation since her injury and is concerned about this as she has had a colon surgery over 10 years ago for cancer and her physician told her to always maintain regularity. She is min assist for eating toileting, mod assist for toilet transfer, max assist for lower body dressing, mod assist for upper body dressing. PAST MEDICAL HISTORY: Falls, colon cancer, glaucoma, osteopenia, keratoconjunctivitis, history of blood clots. PAST SURGICAL HISTORY: As per above. ALLERGIES: No known medication allergies. FAMILY HISTORY: Noncontributory. 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 She has a supportive family nearby. She lives in her own home. She is a . REVIEW OF SYSTEMS: A 10-point review of systems is significant for falls, constipation. MEDICATIONS: Motrin 800 mg p.o. q.8 hours p.r.n. mild pain, Tylenol 1000 mg p.o. q.8 hours p.r.n. mild pain. See Mar for remainder of meds PHYSICAL EXAMINATION: GENERAL: Significant for a pleasant female, appearing her stated age, sitting up in chair, alert and oriented, in no acute distress. VITAL SIGNS: She is afebrile, pulse is 85, respirations 16, blood pressure 166/81, O2 sat 97% on room air. HEENT: Vision, speech, hearing grossly intact. No oral lesion is noted. The patient does have a bruise over the right congregation from fall, which is gradually fading. NECK: Supple without mass. HEART: Regular rhythm. CHEST: Clear. ABDOMEN: Soft, nontender, bowel sounds present. EXTREMITIES: No lower leg edema, no calf tenderness other than some mild tenderness and swelling over the right knee. Musculoskeletal: Her right arm is in immobilizer. Neuro: Left upper limb strength 4/5. She has some edema in the right distal to the elbow, which has now been wrapped. She is able to move her right fingers and hand. She has decreased vision, but able to follow simple commands. Cognition is grossly intact. Strength left lower extremity, hip flexion 4/5, knee flexion 4/5, knee extension 4+/5, dorsiflexion 5/5. Right lower extremity difficult to test due to pain and guarding, swelling right knee. IMPRESSION: 1. General debilitation, status post fall with resulting right knee contusion as well as fracture proximal right humerus, managed with immobilizer outside facility. 2. Contusion right congregation, resolving. 3. History of hypertension. 4. Constipation. We will adjust meds. 5. Hypertension. We will check on home meds. 6. History of hypothyroidism. We will check on home meds. PLAN: The patient will have a comprehensive program of inpatient rehabilitation with goal of maximizing level of functional independence prior to discharge home with home health care and family. The patient may need to consider assisted living facility as she appears to be failing somewhat at home unless there is significant increased family support for her at home. Please see post- admission physician evaluation for details of plan of care regarding PT and OT. Speech therapy has done cognitive assessment and found her to be functional and signed off. Rehabilitation nursing to assist with bowel, bladder, skin, medication administration, pain management, followup regarding home meds, add bowel prep meds for constipation. The abdomen is distended, but nontender. Bowel sounds are present. greeter guest services assist with discharge planning, community reentry. We will ask Dr. Verde to follow this patient as well for this out of town patient for any medical concerns. ESTIMATED LENGTH OF STAY: 10 days. PROGNOSIS: Rehab prognosis appears good for discharge home with family. Modified independent probably supervision for ADLs and mobility skills due to her right knee, right arm being in an immobilizer and/or history of falls. DIET: Regular. CODE STATUS: Full code. Job ID: [id number] DocumentID: [id number] Dictated Date: 10/22/2017 18:45:47 [place] Weeds And Pest Inspector Date: 10/22/2017 19:34:32 Dictated By: GURINDER SPAIN MD MTDD
[2017-10-22] MEDS ORDERED: SIMvastatin 40 MG (ZOCOR) TAB PO SCH (21:00)
[2017-10-22] MEDS ORDERED: lisINopril 40 MG (PRINIVIL) TABLET ONE (21:42)
[2017-10-22] MEDS ORDERED: DILTIAZEM SR 90 MG (CARDIZEM LA) PO ONE (21:42)
[2017-10-22] MEDS ORDERED: ASPIRIN 81 MG CHEW (CHILDREN'S ASA) ONE (21:42)
[2017-10-22] MEDS: SENNA W/DOCUSATE (SENOKOT S) TABLET PO SCH (21:51)
[2017-10-22] MEDS: KCL 10 MEQ TAB (MICRO K) PO SCH (21:51)
[2017-10-22] MEDS: ATORVASTATIN 20 MG (LIPITOR) TABLET PO SCH (21:51)
[2017-10-22] MEDS: lisINopril 40 MG (PRINIVIL) TABLET PO SCH (21:52)
[2017-10-22] MEDS: DILTIAZEM SR 90 MG (CARDIZEM LA) PO SCH (21:53)
[2017-10-22] MEDS ORDERED: ASPIRIN E.C. 81 MG (ECOTRIN) TAB PO ONE (21:54)
[2017-10-22] MEDS: ASPIRIN E.C. 81 MG (ECOTRIN) TAB PO SCH (22:19)
[2017-10-23 05:12] VITALS: BP 158/77
[2017-10-23] MEDS: KCL 20 MEQ TAB (K-DUR) PO SCH (06:44)
[2017-10-23] MEDS: LEVOTHYROXINE 125 MCG (LEVOTHROID) TABLET PO SCH (06:44)
--- NOTE | 2017-10-23 07:56 | PM&R Post Admission Assessment ---
Post Admission Physician Asses Date seen by provider: Oct 23, 2017 Time seen by provider: 07:30 Admisison Dx: (1) Fracture, humerus closed The preadmission screen agrees with the post admission assessment that the patient is a good candidate for inpatient rehabilitation. The patient will have a comprehensive program of inpatient rehabilitation with a goal of maximizing level of functional independence prior to discharge home with family and HHC. The patient will have PT/OT ninety minutes per day, each discipline, five days a week for 14 days for gait, strengthening, conditioning , balance, ADLs, any patient/family/caregiver training as necessary. Speech therapy to do cognitive assessment and treat as indicated. Rehabilitation nursing to assist with bowel, bladder, skin, wound care, medication administration, pain management. Diorama Model Maker to assist with discharge planning, community reentry. SCD's for DVT prophylaxis. She appears to be well motivated to participate in three hours of therapy a day. She should be able to tolerate three hours of therapy a day from a medical standpoint. She should benefit from the three hours of therapy a day. She has a reasonable discharge plan, reasonable discharge rehabilitation goals and a supportive family. She has various comorbidities that need to be closely monitored with medications and treatments adjusted on a daily basis as needed. These include: Constipation Falls HTN Hx of falls Barriers to discharge for this patient who had been independent prior to this are for her to be modified independent to supervision for ADLs and mobility skills prior to discharge home with family and HHC, so as to lessen the burden of the caregivers. Risks for this patient include: 1. Fall 2. Fracture 3. DVT 4. Pulmonary embolism 5. Poorly controlled HTN 6. Skin breakdown 7. Contractures 8. Poorly controlled pain 9. Urinary retention 10. UTI 11. Respiratory infection 12. Aspiration Estimated Length of Stay: 14 days Prognosis: Rehab prognosis appears good for goal of discharge home with family and HHC modified independent to supervision for ADLs and mobility skills. General: Alert, Oriented X3, Cooperative, No Acute Distress HEENT: PERRLA, EOMI, Mucous Memb Moist/[place], Other (Bruise rt restorationist) Neck: Supple, No JVD Lungs: Clear to Auscultation Heart: Regular Rate Abdomen: Normal Bowel Sounds, Soft, No Tenderness Extremities: Other (RT arm in immobilizer) Neuro: Strength at 5/5 X4 Ext, Other ( RT arm in immobilizer rt leg with tenderness rt knee with guarding remainder generalized weakness sensation intact ) GURINDER SPAIN MD Oct 23, 2017 07:56
[2017-10-23] MEDS: BISACODYL 5 MG (DULCOLAX) TABLET PO SCH (08:23)
[2017-10-23] MEDS: SENNA W/DOCUSATE (SENOKOT S) TABLET PO SCH ×2 (08:23→22:04)
[2017-10-23] MEDS: FOLIC ACID 1 MG TAB PO SCH (08:23)
[2017-10-23] MEDS: ASPIRIN E.C. 81 MG (ECOTRIN) TAB PO SCH (08:23)
[2017-10-23] MEDS: lisINopril 40 MG (PRINIVIL) TABLET PO SCH (08:23)
[2017-10-23] MEDS: DILTIAZEM SR 90 MG (CARDIZEM LA) PO SCH (08:23)
[2017-10-23] MEDS: MILK OF MAGNESIA 400 MG/5 ML 30 ML UDC PO PRN (08:27)
[2017-10-23 08:29] LABS: MEAN PLATELET VOLUME 9.6 FL (7.4-10.4); RED BLOOD COUNT 3.76 10^6/uL (4.35-5.85); RED CELL DISTRIBUTION WIDTH 12.4 % (10.0-14.5); WHITE BLOOD COUNT 6.8 10^3/uL (4.3-11.0)
--- NOTE | 2017-10-23 08:47 | Occupational Ther Daily Note ---
OT Current Status-Daily Note Subjective Pt alert, sitting on EOB. Pt agrees to therapy. No c/o pain this time. Increased edema and bruising at R elbow. Pt does appear slightly confused, talks through the sequence of each task. Mental Status/Objective Patient Orientation: Person, Place, Time, Situation Functional [place] Measure 0=Not Assessed/NA 4=Minimal Assistance 1=Total Assistance 5=Supervision or Setup 2=Maximal Assistance 6=Modified [place] 3=Moderate Assistance 7=Complete [place] ADL-Treatment Pt declined completing oral care stating that she completes at night, soaks dentures at night. Functional [place] Measure 0=Not Assessed/NA 4=Minimal Assistance 1=Total Assistance 5=Supervision or Setup 2=Maximal Assistance 6=Modified [place] 3=Moderate Assistance 7=Complete IndependenceIRFPAI Quality Coding Scale 6 Independent with activity with or without an assistive device 5 Patient requires set up or clean up by helper. Patient completes activity by themselves 4 Supervision or touching assist (CGA). [place] provide cues , steadying assist 3 The helper provides less than half the effort to complete the activity 2 The helper provides more than half the effort to complete the activity 1 Dependent. The helper does all the effort to complete an activity 7 Patient refused to complete or attempt activity 9 The patient did not perform the activity before the current illness or injury 88 Not attempted due to Medical conditions or safety concerns Bathing (FIM): 4 (Using grabbar, shower bench and hand held shower pt is able to complete bathing. CGA in standing while pt cleanses kameron area/buttocks.) Bathing Location: L Arm, R Arm, L Upper Leg, R Upper Leg, L Lower Leg ( including foot), R Lower Leg (including foot), Chest, Abdomen, Buttocks, Perineal Area Shower/Bathe Self (QC): 4 Upper Body (FIM): 3 (Assist to thread UE's into sleeves and to button shirt.) Upper Body Dressing (QC): 3 Lower Body Dressing (FIM): 2 (Assist to doff/don socks. Assist to slide pants on/off of feet. Pt able to hike pants over hips with CGA.) Lower Body Dressing (QC): 2 On/Off Footwear (QC): 2 Toileting (FIM): 4 (CGA in standing to hike pants over hips. Pt able to complete hygiene. Using BSC, hemiwalker and grabbars.) Toileting Hygiene (QC): 4 Transfers (B, C, W/C) (FIM): 4 (Min A to go from sitting to standing. CGA for all other parts of transfers.) Toilet/Commode Transfer (FIM): 4 (Using grabbars, BSC and hemiwalker pt able to complete transfer with CGA.) Toilet Transfer (QC): 4 Shower Transfer(FIM): 4 (Using hemiwalker, grabbar and shower bench pt able to complete with CGA.) Pt educated on using R hand to assist with daily tasks to increase AROM and decrease edema. After therapy, pt sitting in recliner with call light/phone in reach. All needs met in room. Nrsg in room. OT Short Term Goals Short Term Goals Time Frame: Oct 29, 2017 Eating(FIM): 5 Toilet/Commode Transfer(FIM): 4 Additional Short Term Goals: 1-Demonstrate ADL Tasks, 2-Verbalize Understanding , 3-ImproveStrength/Ritchie 1=Demonstrate adherence to instructed precautions during ADL tasks. 2=Patient will verbalize/demonstrate understanding of assistive devices/ modifications for ADL. 3=Patient will improve strength/tolerance for activity to enable patient to perform ADL's. OT Skilled Nursing Goals Auto Bumper Straightener Goals Time Frame: Nov 09, 2017 Eating (FIM): 5 Eating (QC): 5 Groomin Oral Hygiene (QC): 5 Bathing(FIM): 4 Shower/Bathe Self (QC): 3 Upper Body Dressing(FIM): 5 Upper Body Dressing (QC): 5 Lower Body Dressing(FIM): 5 Lower Body Dressing (QC): 5 On/Off Footwear (QC): 5 Toileting(FIM): 6 Toileting Hygiene (QC): 6 Toilet/Commode Transfer(FIM): 6 Toilet/Commode Transfer (QC): 6 Shower Transfer(FIM): 5 Additional Goals: 1-Demonstrate ADL Tasks, 2-Verbalize Understanding, 3- ImproveStrength/Ritchie 1=Demonstrate adherence to instructed precautions during ADL tasks. 2=Patient will verbalize/demonstrate understanding of assistive devices/ modifications for ADL. 3=Patient will improve strength/tolerance for activity to enable patient to perform ADL's. OT Education/Plan Problem List/Assessment Pt would benefit from skilled OT to increase her independence in basic self care to allow her to safely return home wit family support Discharge Recommendations Plan/Recommendations: Continue POC Treatment Plan/Plan of Care Patient would benefit from OT for education, treatment and training to promote independence in ADL's, mobility, safety and/or upper extremity function for ADL' s. Plan of Care: ADL Retraining, Functional Mobility, Group Exercise/Act as Ind ( education, exercise, act tolerance, functional mobility, R UE funct use, socialization), UE Funct Exercise/Act, UE Neuromus Re-Ed/Coord Treatment Duration: Nov 09, 2017 Frequency: At least 5 of 7 days/Wk (IRF) Estimated Hrs Per Day: 1.5 hours per day Agreement: Yes Rehab Potential: Fair Time/GCodes Start Time: 07:00 Stop Time: 08:30 Total Time Billed (hr/min): 90 Billed Treatment Time 1 visit-ADL 6 (90 min) KI MORENO Oct 23, 2017 08:47
[2017-10-23 08:48] LABS: ALANINE AMINOTRANSFERASE 11 U/L (0-55); ALBUMIN 3.8 GM/DL (3.2-4.5); ALKALINE PHOSPHATASE 59 U/L (40-136); BILIRUBIN,TOTAL 1.4 MG/DL (0.1-1.0); BUN/CREATININE RATIO 19; CALCIUM 10.5 MG/DL (8.5-10.1); CARBON DIOXIDE 29 MMOL/L (21-32); CHLORIDE 98 MMOL/L (98-107); GFR ESTIMATED > 60; GLUCOSE 97 MG/DL (70-105); POTASSIUM 3.6 MMOL/L (3.6-5.0); SODIUM 134 MMOL/L (135-145); TOTAL PROTEIN 7.6 GM/DL (6.4-8.2)
[2017-10-23] MEDS ORDERED: DILTIAZEM 30 MG (CARDIZEM) TAB PO SCH (09:00)
[2017-10-23] MEDS ORDERED: PATIENT MAY USE OWN MED,SINGLE MED PO SCH (11:30)
[2017-10-23] MEDS ORDERED: ARTIFICAL TEARS 0.4 ML UNIT DOSE (REFRESH PLUS) OU PRN (11:45)
--- NOTE | 2017-10-23 12:29 | Physical Therapy Daily Note ---
PT Daily Note-Current Subjective Pt sitting in recliner upon arrival. Pt agrees to PT. Pt wants to use restroom to try BM, been "very constipated". Pain Numeric Pain Scale: 5-Moderate Pain Location: Right Location Body Site: Knee Pain Description: Ache, Sharp Comment: Pt reports pain in R knee, hip, elbow & shoulder w/intermittent sharp pain. Mental Status Patient Orientation: Person, Place, Time, Situation Attachments: Other-See Comments (Sling for R arm) Transfers Functional [place] Measure 0=Not Assessed/NA 4=Minimal Assistance 1=Total Assistance 5=Supervision or Setup 2=Maximal Assistance 6=Modified [place] 3=Moderate Assistance 7=Complete IndependenceIRFPAI Quality Coding Scale 6 Independent with activity with or without an assistive device 5 Patient requires set up or clean up by helper. Patient completes activity by themselves 4 Supervision or touching assist (CGA). [place] provide cues , steadying assist 3 The helper provides less than half the effort to complete the activity 2 The helper provides more than half the effort to complete the activity 1 Dependent. The helper does all the effort to complete an activity 7 Patient refused to complete or attempt activity 9 The patient did not perform the activity before the current illness or injury 88 Not attempted due to Medical conditions or safety concerns Scootin Sit to/from Stand: 4 Sit to Stand (QC): 4 Weight Bearing Right Lower Extremity: Right Weight Bearing/Tolerated Gait Training Does the Patient Walk?: Yes Distance (FIM): 3=150 ft Distance: 50', 100', 75' Walk 10 feet (QC): 4 Walk 50 ft with 2 Turns(QC): 4 Walk 150 ft (QC): 4 Gait Level of Assist: 4 Gait Persons Needed: 1 Gait Assistive Device: FWW Pt fatigues quickly and needs rest break to recover. Exercises Seated Therapy Exercises: Ankle pumps, Long arc quads, Hip flexion, Kicking activity Seated Reps: 15 (2 sets of 15 reps) Treatments Pt giving recent medical history to DRIVER MANAGER upon arrival. Pt reports needing to try to use restroom. Pt tries for a while due to constipation before leaving room for tx. Pt transfers from sitting at [facility]-Min A then ambulates in [facility] using FWW at [facility] for balance. Pt takes a couple short rest breaks due to fatigue. DRIVER MANAGER & pt discuss pt's decrease in vision and what tools that OT will look into for better quality of life for pt. Pt completes Seated Ex in chair. Pt returns to room to rest in recliner at end of tx. Pt has all needs met, including call light & phone next to pt. Assessment Current Status: Good Progress Vision continues to remain a struggle for pt and pt needs VC for landmarks and ambulating. PT Short Term Goals Short Term Goals Time Frame: Oct 29, 2017 Gait (FIM): 1 Gait Distance Comment: 40' Gait Level of Assist: 4 Gait Assistive Device: Walker Pancho PT Prison Goals Photoengraving Proofer Apprentice Goals PT Prison Goals Time Frame: Nov 12, 2017 Transfers (B,C,W/C) (FIM): 5 Sit to Lying (QC): 4 Lying-Sitting on Side/Bed(QC): 4 Sit to Stand (QC): 4 Rollin Roll Left to Right (QC): 4 Chair/Cgc-jo-Qrnbe Xfer(QC): 4 Car Transfer (QC): 4 Gait (FIM): 2 Distance: 50' Walk 10 feet (QC): 4 Walk 10ft-Uneven Surface(QC): 4 Walk 50ft with 2 Turns (QC): 4 Walk 150 ft (QC): 4 Gait Level of Assist: 4 Gait Assistive Device: Walker Pancho Stairs (FIM): 1 # of Steps: 1 1 Step (curb) (QC): 3 Stairs Level Of Assist: 4 PT Plan Problem List Problem List: Activity Tolerance, Functional Strength, Safety, Balance, Gait, Transfer Treatment/Plan Treatment Plan: Continue Plan of Care Treatment Plan: Bed Mobility, Concurrent Therapy, Education, Functional Activity Ritchie, Functional Strength, Group Therapy, Gait, Safety, Therapeutic Exercise, Transfers Treatment Duration: Nov 12, 2017 Frequency: At least 5 of 7 days/Wk (IRF) Estimated Hrs Per Day: 1.5 hours per day Patient and/or Family Agrees t: Yes Safety Risks/Education Patient Education: Gait Training, Transfer Techniques, Correct Positioning, Safety Issues Teaching Recipient: Patient Teaching Methods: Discussion Response to Teaching: Verbalize Understanding Time/GCodes Time In: 930 Time Out: 1100 Total Billed Treatment Time: 90 Total Billed Treatment 1, FA x3 (45m), GT (15m) & EX x2 (30m) G Codes Necessary: No NANCY ORTEGA DRIVER MANAGER Oct 23, 2017 12:29
--- NOTE | 2017-10-23 15:04 | PM & R (SOAP) Progress Note ---
Subjective This was a face to face visit with the patient. Date Seen by Provider: Oct 23, 2017 Time Seen by Provider: 07:50 Subjective/Events-last exam Patient was seen in her room this AM Patient Min assist for transfers Patient declines SCDS for DVT prophylaxis Will check with paaasterient if Lovenox SQ might be an option Discussed with multimedia services coordinator of Systems Musculoskeletal: arm pain, leg pain Objective Physician Exam Last Set of Vital Signs Vital Signs Date Time Temp Pulse Resp B/P (MAP) Pulse Ox O2 Delivery O2 Flow Rate FiO2 10/23/17 05:12 97.2 76 17 158/77 (104) 98 Room Air Capillary Refill : Less Than 3 Seconds I&O Intake and Output 10/23/17 00:00 Daily Weight Change Unsure General: Alert, Oriented X3, Cooperative, No Acute Distress HEENT: PERRLA, EOMI, Mucous Memb Moist/[place], Other (Bruise rt episcopal) Neck: Supple, No JVD Lungs: Clear to Auscultation Heart: Regular Rate Abdomen: Normal Bowel Sounds, Soft, No Tenderness Extremities: Other (RT arm in immobilizer) Neuro: Strength at 5/5 X4 Ext, Other ( RT arm in immobilizer rt leg with tenderness rt knee with guarding remainder generalized weakness sensation intact ) Results Lab Data Laboratory Tests 10/22/17 17:30: Urine Color YELLOW, Urine Clarity CLEAR, Urine pH 6, Urine Specific [place] 1.020, Urine Protein 2+H, Urine Glucose (UA) NEGATIVE, Urine Ketones NEGATIVE, Urine Nitrite NEGATIVE, Urine Bilirubin NEGATIVE, Urine Urobilinogen 1, Urine Leukocyte Esterase 1+H, Urine RBC (Auto) NEGATIVE, Urine RBC NONE, Urine WBC RARE, Urine Squamous Epithelial Cells 0-2, Urine Crystals NONE, Urine Bacteria TRACE, Urine Casts NONE, Urine Mucus NEGATIVE, Urine Culture Indicated NO 10/23/17 08:13: White Blood Count 6.8, Red Blood Count 3.76L, Hemoglobin 12.0, Hematocrit 35, Mean Corpuscular Volume 93, Mean Corpuscular Hemoglobin 32, Mean Corpuscular Hemoglobin Concent 35, Red Cell Distribution Width 12.4, Platelet Count 178, Mean Platelet Volume 9.6, Sodium Level 134L, Potassium Level 3.6, Chloride Level 98, Carbon Dioxide Level 29, Anion Gap 7, Blood Urea Nitrogen 15, Creatinine 0.80, Estimat Glomerular Filtration Rate > 60, BUN/Creatinine Ratio 19, Glucose Level 97, Calcium Level 10.5H, Total Bilirubin 1.4H, Aspartate Amino Transf (AST/SGOT) 19, Alanine Aminotransferase (ALT/SGPT) 11, Alkaline Phosphatase 59, Total Protein 7.6, Albumin 3.8 Assessment/Plan Assessment and Plan Fall with proximal Rt humerus managed with immobilzer OSH RT Knee contusion Rt temlpe contusion s/p fall all related to above fall HTN controlled with Med DVT prophylaxis will see if Lovenox agreeable to patient or document refusal Constipation meds adjusted Hypothyroidism on replacement Plan Continue PT/OT Team Conference tomotrow F/U re DVT prophylaxis RX (1) Fracture, humerus closed Co-Morbidities that are continuing to impact the rehab process: (include details ) GURINDER SPAIN MD Oct 23, 2017 15:04
[2017-10-23 16:29] VITALS: BP 131/70
[2017-10-23] MEDS: KCL 10 MEQ TAB (MICRO K) PO SCH (22:03)
[2017-10-23] MEDS: CARBOXYMETHYLCELLULOSE SODIUM OU SCH (22:03)
[2017-10-23] MEDS: ATORVASTATIN 20 MG (LIPITOR) TABLET PO SCH (22:03)
[2017-10-24 06:20] VITALS: BP 155/73
[2017-10-24] MEDS: KCL 20 MEQ TAB (K-DUR) PO SCH (06:30)
[2017-10-24] MEDS: LEVOTHYROXINE 125 MCG (LEVOTHROID) TABLET PO SCH (06:30)
--- NOTE | 2017-10-24 08:16 | Consultation ---
History of Present Illness History of Present Illness Patient Consulted On(reynaldo/time) 10/24/17 08:11 Time Seen by Provider: 08:10 History of Present Illness patient had a forearm right humerus fracture. Patient had a fall had a knee abrasion. Patient has debility. Patient has history of hypertension. Surgery: colon cancer in 2003 Allergies and Home Medications Allergies Coded Allergies: No Known Drug Allergies (Unverified , 10/22/17) Home Medications Aspirin 81 Mg Tablet.dr, 81 MG PO MoWeFr, (Reported) Bisacodyl 5 Mg Tablet, 5 MG PO BID PRN for CONSTIPATION-4TH LINE, (Reported) Ca/D3/Mag#11/Zinc/Manager Of Sustainability/Alli/Bor 1 Each Tablet, 1 TAB PO DAILY, (Reported) Carboxymethyl/Glycerin/Poly80 10 Ml Drops, 1 DROP OU TID PRN for DRY EYES, ( Reported) Carboxymethylcellulose Sodium 15 Ml Drops, 1 DROP OU BID, (Reported) Clonidine 1 Each Patch.tdwk, 0.1 MG TD We, (Reported) Cyanocobalamin (Vitamin B-12) 1,000 Mcg Tablet, 1,000 MCG PO MoWeFr, (Reported) Diltiazem HCl 90 Mg Tab, 90 MG PO DAILY, (Reported) Fish Oil/Vit E/Fat No.5/Hc137 1 Each Capsule, 1 CAP PO BID, (Reported) Folic Acid 0.8 Mg Capsule, 0.8 MG PO DAILY, (Reported) Garlic 1,000 Mg Capsule, 1,000 MG PO DAILY, (Reported) Levothyroxine Sodium 125 Mcg Tablet, 62.5 MCG PO DAILY, (Reported) TAKES 1/2 (125MCG) TABLET Lisinopril 40 Mg Tablet, 40 MG PO HS, (Reported) Mineral Oil/Petrolatum,White 3.5 Gm Oint...g., OU HS, (Reported) Multivitamin 1 Each Tablet, 1 TAB PO DAILY, (Reported) Potassium Chloride 10 Meq Tablet.er, 20 MEQ PO DAILY, (Reported) Potassium Chloride 10 Meq Tab.er.prt, 10 MEQ PO HS, (Reported) Sennosides/Docusate Sodium 1 Each Tablet, 1-2 TAB PO DAILY PRN for CONSTIPATION- 6TH LINE, (Reported) Simvastatin 40 Mg Tablet, 40 MG PO MoWeFr, (Reported) Tramadol HCl 50 Mg Tablet, 50 MG PO Q6H PRN for PAIN-MODERATE, (Reported) Patient Home Medication List Home Medication List Reviewed: Yes Past Xnavrqy-Gnkixw-Gwezeu Hx Patient Social History Alcohol Use: Denies Use Recreational Drug Use: No Smoking Status: Never a Smoker Recent Foreign Travel: No Contact w/Someone Who Travel: No Recent Infectious Disease Expo: No Recent Hopitalizations: No Seasonal Allergies Seasonal Allergies: No Past Medical History Surgeries: Yes (hemicolectomy) Respiratory: No Cardiac: Yes Hypertension Neurological: No Genitourinary: No Gastrointestinal: No Musculoskeletal: Yes (osteopenia, osteoarthritis) Endocrine: Yes Hypothyroidsim HEENT: Yes (keratoconjunctivitis sicca) Glaucoma Colon Psychosocial: No Integumentary: No Review of Systems-General Constitutional: malaise, weakness EENTM: no symptoms reported Respiratory: no symptoms reported Cardiovascular: no symptoms reported Gastrointestinal: no symptoms reported Genitourinary: no symptoms reported Physical Exam-General Problems Physical Exam Vital Signs Vital Signs - First Documented 10/22/17 11:27 Temp 98.6 Pulse 79 Resp 22 B/P (MAP) 165/72 (103) Pulse Ox 97 O2 Delivery Room Air Capillary Refill : Less Than 3 Seconds General Appearance: no apparent distress, thin Eyes: Bilateral Eye Normal Inspection HEENT: normal ENT inspection Neck: full range of motion, normal inspection Respiratory: chest non-tender, lungs clear, no respiratory distress, no accessory muscle use Cardiovascular: regular rate, rhythm, no murmur Gastrointestinal: non tender, soft Assessment/Plan Assessment/Plan Admission Diagnosis/Plan right knee effusion. Fall. Debility. Fracture of the humerus. Hypertension. history of colon cancer. Patient lives alone Clinical Quality Measures DVT/VTE Risk/Contraindication: Risk Factor Score Per Nursin RFS Level Per Nursing on Admit: 3=High DAVID JONES DO Oct 24, 2017 08:16
--- NOTE | 2017-10-24 08:44 | PM & R (SOAP) Progress Note ---
Subjective This was a face to face visit with the patient. Date Seen by Provider: Oct 24, 2017 Time Seen by Provider: 07:55 Subjective/Events-last exam Patient was seen in her room this AM Patient Min assist for transfers Patients family in last evening to visit 3 children and grandchildren Objective Physician Exam Last Set of Vital Signs Vital Signs Date Time Temp Pulse Resp B/P (MAP) Pulse Ox O2 Delivery O2 Flow Rate FiO2 10/24/17 06:20 98.9 89 18 155/73 (100) 98 Room Air Capillary Refill : Less Than 3 Seconds I&O Intake and Output 10/24/17 00:00 Intake Total 1400 ml Output Total 1100 ml Balance 300 ml Intake Oral 1400 ml Output Urine Total 1100 ml # Voids 2 # Bowel Movements 2 General: Alert, Oriented X3, Cooperative, No Acute Distress HEENT: PERRLA, EOMI, Mucous Memb Moist/[place], Other (Bruise rt buddhism) Neck: Supple, No JVD Lungs: Clear to Auscultation Heart: Regular Rate Abdomen: Normal Bowel Sounds, Soft, No Tenderness Extremities: Other (RT arm in immobilizer) Neuro: Strength at 5/5 X4 Ext, Other ( RT arm in immobilizer rt leg with tenderness rt knee with guarding remainder generalized weakness sensation intact ) Results Lab Data Laboratory Tests 10/22/17 17:30: Urine Color YELLOW, Urine Clarity CLEAR, Urine pH 6, Urine Specific [place] 1.020, Urine Protein 2+H, Urine Glucose (UA) NEGATIVE, Urine Ketones NEGATIVE, Urine Nitrite NEGATIVE, Urine Bilirubin NEGATIVE, Urine Urobilinogen 1, Urine Leukocyte Esterase 1+H, Urine RBC (Auto) NEGATIVE, Urine RBC NONE, Urine WBC RARE, Urine Squamous Epithelial Cells 0-2, Urine Crystals NONE, Urine Bacteria TRACE, Urine Casts NONE, Urine Mucus NEGATIVE, Urine Culture Indicated NO 10/23/17 08:13: White Blood Count 6.8, Red Blood Count 3.76L, Hemoglobin 12.0, Hematocrit 35, Mean Corpuscular Volume 93, Mean Corpuscular Hemoglobin 32, Mean Corpuscular Hemoglobin Concent 35, Red Cell Distribution Width 12.4, Platelet Count 178, Mean Platelet Volume 9.6, Sodium Level 134L, Potassium Level 3.6, Chloride Level 98, Carbon Dioxide Level 29, Anion Gap 7, Blood Urea Nitrogen 15, Creatinine 0.80, Estimat Glomerular Filtration Rate > 60, BUN/Creatinine Ratio 19, Glucose Level 97, Calcium Level 10.5H, Total Bilirubin 1.4H, Aspartate Amino Transf (AST/SGOT) 19, Alanine Aminotransferase (ALT/SGPT) 11, Alkaline Phosphatase 59, Total Protein 7.6, Albumin 3.8 Assessment/Plan Assessment and Plan prox rt humerus fracture managed with immobilizer OSH secondary to fall Rt Knee contusion Rt buddhism contusion healing HTN controlled with med 'DVT prophylaxis f/u re lovenox or scds Constipation slick adjusted Hyopthroidism on med Prior Colon surgery for CA Plan Continue PT/OT Team Conference later today-see report for full functional update and POC and ELOS F/U re dvt prophylaxis (1) Fracture, humerus closed Co-Morbidities that are continuing to impact the rehab process: (include details ) GURINDER SPAIN MD Oct 24, 2017 08:44
[2017-10-24] MEDS: lisINopril 40 MG (PRINIVIL) TABLET PO SCH (08:56)
[2017-10-24] MEDS: SENNA W/DOCUSATE (SENOKOT S) TABLET PO SCH ×3 (08:56→19:40)
[2017-10-24] MEDS: DILTIAZEM SR 90 MG (CARDIZEM LA) PO SCH (08:56)
[2017-10-24] MEDS: BISACODYL 5 MG (DULCOLAX) TABLET PO SCH ×2 (08:56→09:00)
[2017-10-24] MEDS: ASPIRIN E.C. 81 MG (ECOTRIN) TAB PO SCH (08:56)
[2017-10-24] MEDS: FOLIC ACID 1 MG TAB PO SCH (08:56)
[2017-10-24] MEDS: CARBOXYMETHYLCELLULOSE SODIUM OU SCH ×2 (08:57→19:41)
--- NOTE | 2017-10-24 11:45 | Occupational Ther Daily Note ---
OT Current Status-Daily Note Subjective Pt seen in room, up in bed, agreeable to OT. Pain not mentioned, knee feeling better. Appearance Alert, cooperative Mental Status/Objective Functional [place] Measure 0=Not Assessed/NA 4=Minimal Assistance 1=Total Assistance 5=Supervision or Setup 2=Maximal Assistance 6=Modified [place] 3=Moderate Assistance 7=Complete [place] ADL-Treatment Pt got up from bed, rolling toward her L side so that she could push up to sit using L UE, min assist. Initially dizzy but quickly resolved. Sit to stand with CGA. Walked with CGA, padilla walker to bathroom. CGA to position herself by BSC over toilet, CGA clothing management and transfer on/off BSC, cues for hand placement. Managed hygiene herself. Stood CGA at sink to wash hands and teeth, brush hair. Walked CGA, padilla walker to recliner. Pt provided with lower table so that she could reach her food. With encouragement, held pudding in R hand while she fed herself with L, using builtup handle on spoon. She also was able to feed herself a few bites using R hand - and was very pleased. Held banana with R hand while cutting off stem with L, then able to peel banana. Setup for food. Pillow under R elbow for additional support. Pt left up in recliner, finishing breakfast, all needs met. Functional [place] Measure 0=Not Assessed/NA 4=Minimal Assistance 1=Total Assistance 5=Supervision or Setup 2=Maximal Assistance 6=Modified [place] 3=Moderate Assistance 7=Complete IndependenceIRFPAI Quality Coding Scale 6 Independent with activity with or without an assistive device 5 Patient requires set up or clean up by helper. Patient completes activity by themselves 4 Supervision or touching assist (CGA). [place] provide cues , steadying assist 3 The helper provides less than half the effort to complete the activity 2 The helper provides more than half the effort to complete the activity 1 Dependent. The helper does all the effort to complete an activity 7 Patient refused to complete or attempt activity 9 The patient did not perform the activity before the current illness or injury 88 Not attempted due to Medical conditions or safety concerns Eating (FIM): 5 (Built up handle for spoon, encouragement to use R UE. Setup. Lower table. Takes longer than usual to eat.) Grooming (FIM): 4 (CGA at sink to clean dentures, brush hair, wash hands.) Oral Hygiene (QC): 4 (CGA) Toileting (FIM): 4 (CGA for clothing management, with some difficulty pulling pants up on R side but able to do it. BSC over toilet, grab bar) Transfers (B, C, W/C) (FIM): 4 (Min assist, supine to sit, help with shoulder) Toilet/Commode Transfer (FIM): 4 (CGA getting on/off BSC over toilet, grab bar) Education OT Patient Education: Modified ADL techniques, Progress toward Goal/Update tx plan, Purpose of tx/functional activities, Use of adapted equipment Teaching Recipient: Patient Teaching Methods: Demonstration, Discussion Response to Teaching: Verbalize Understanding, Return Demonstration, Reinforcement Needed OT Short Term Goals Short Term Goals Time Frame: Oct 29, 2017 Eating(FIM): 5 Toilet/Commode Transfer(FIM): 4 Additional Short Term Goals: 1-Demonstrate ADL Tasks, 2-Verbalize Understanding , 3-ImproveStrength/[place] 1=Demonstrate adherence to instructed precautions during ADL tasks. 2=Patient will verbalize/demonstrate understanding of assistive devices/ modifications for ADL. 3=Patient will improve strength/tolerance for activity to enable patient to perform ADL's. OT Skilled Nursing Goals Peoplesoft Analyst Goals Time Frame: Nov 09, 2017 Eating (FIM): 5 Eating (QC): 5 Groomin Oral Hygiene (QC): 5 Bathing(FIM): 4 Shower/Bathe Self (QC): 3 Upper Body Dressing(FIM): 5 Upper Body Dressing (QC): 5 Lower Body Dressing(FIM): 5 Lower Body Dressing (QC): 5 On/Off Footwear (QC): 5 Toileting(FIM): 6 Toileting Hygiene (QC): 6 Toilet/Commode Transfer(FIM): 6 Toilet/Commode Transfer (QC): 6 Shower Transfer(FIM): 5 Additional Goals: 1-Demonstrate ADL Tasks, 2-Verbalize Understanding, 3- ImproveStrength/[place]itchie 1=Demonstrate adherence to instructed precautions during ADL tasks. 2=Patient will verbalize/demonstrate understanding of assistive devices/ modifications for ADL. 3=Patient will improve strength/tolerance for activity to enable patient to perform ADL's. OT Education/Plan Problem List/Assessment Pt would benefit from skilled OT to increase her independence in basic self care to allow her to safely return home wit family support Discharge Recommendations Plan/Recommendations: Continue POC Treatment Plan/Plan of Care Patient would benefit from OT for education, treatment and training to promote independence in ADL's, mobility, safety and/or upper extremity function for ADL' s. Plan of Care: ADL Retraining, Functional Mobility, Group Exercise/Act as Ind ( education, exercise, act tolerance, functional mobility, R UE funct use, socialization), UE Funct Exercise/Act, UE Neuromus Re-Ed/Coord Treatment Duration: Nov 09, 2017 Frequency: At least 5 of 7 days/Wk (IRF) Estimated Hrs Per Day: 1.5 hours per day Agreement: Yes Rehab Potential: Fair Time/GCodes Start Time: 08:30 Stop Time: 09:30 Total Time Billed (hr/min): 60 Billed Treatment Time visit, 60 minutes ADL MARIOLA COTTRELL OT Oct 24, 2017 11:45
--- NOTE | 2017-10-24 12:28 | Physical Therapy Daily Note ---
PT Daily Note-Current Subjective Pt sitting in recliner upon arrival. Pt reports feeling nauseated since taking meds mid-morning. Pt states need to limit tx due to nausea & dizziness. Pain Numeric Pain Scale: 5-Moderate Pain Location: Right Location Body Site: Shoulder Pain Description: Ache Comment: Pt in R shoulder, elbow, hip & knee. Mental Status Patient Orientation: Person, Place, Situation Transfers Functional [place] Measure 0=Not Assessed/NA 4=Minimal Assistance 1=Total Assistance 5=Supervision or Setup 2=Maximal Assistance 6=Modified [place] 3=Moderate Assistance 7=Complete IndependenceIRFPAI Quality Coding Scale 6 Independent with activity with or without an assistive device 5 Patient requires set up or clean up by helper. Patient completes activity by themselves 4 Supervision or touching assist (CGA). [place] provide cues , steadying assist 3 The helper provides less than half the effort to complete the activity 2 The helper provides more than half the effort to complete the activity 1 Dependent. The helper does all the effort to complete an activity 7 Patient refused to complete or attempt activity 9 The patient did not perform the activity before the current illness or injury 88 Not attempted due to Medical conditions or safety concerns Scootin Supine to/from Sit: 4 Sit to/from Stand: 4 Sit to Lying (QC): 4 Sit to Stand (QC): 4 Weight Bearing Right Lower Extremity: Right Weight Bearing/Tolerated Gait Training Does the Patient Walk?: Yes Distance (FIM): 1=up to 49 ft Distance: 5' Gait Level of Assist: 4 Gait Persons Needed: 1 Gait Assistive Device: Walker Pancho Pt feels dizzy & nausea when up. Exercises Seated Therapy Exercises: Ankle pumps, Long arc quads, Hip flexion, Kicking activity Seated Reps: 10 Treatments Pt feels nauseated during tx. PATIENT ACCESS MANAGER notifies Nurse & Nurse states pt didn't want food before pain med and now feels nauseated. PATIENT ACCESS MANAGER & pt discuss need to take food before pain med to prevent nausea. Pt ed. over medications, blood sugar, how PT helps with strengthening & benefits it brings as well as need to keep exercising to maintain ROM and strength. Pt reports wanting to lay down and transfers from recliner to standing using Pancho at CGA. Pt transfers to Supine in bed at Min A to help lift LE into bed. Pt resting at end of tx. Pt has all needs met, call light in hand. Assessment Current Status: Fair Progress Pt self limits at times. Pt is also anxious and often needs VC repeated. PT Short Term Goals Short Term Goals Time Frame: Oct 29, 2017 Gait (FIM): 1 Gait Distance Comment: 40' Gait Level of Assist: 4 Gait Assistive Device: Walker Pancho PT Long-Term Goals Long-Term Goals PT Mileage Clerk Goals Time Frame: Nov 12, 2017 Transfers (B,C,W/C) (FIM): 5 Sit to Lying (QC): 4 Lying-Sitting on Side/Bed(QC): 4 Sit to Stand (QC): 4 Rollin Roll Left to Right (QC): 4 Chair/Xnb-af-Iuvkf Xfer(QC): 4 Car Transfer (QC): 4 Gait (FIM): 2 Distance: 50' Walk 10 feet (QC): 4 Walk 10ft-Uneven Surface(QC): 4 Walk 50ft with 2 Turns (QC): 4 Walk 150 ft (QC): 4 Gait Level of Assist: 4 Gait Assistive Device: Walker Pancho Stairs (FIM): 1 # of Steps: 1 1 Step (curb) (QC): 3 Stairs Level Of Assist: 4 PT Plan Problem List Problem List: Activity Tolerance, Functional Strength, Safety, Balance, Gait, Transfer, Bed Mobility Treatment/Plan Treatment Plan: Continue Plan of Care Treatment Plan: Bed Mobility, Concurrent Therapy, Education, Functional Activity Ritchie, Functional Strength, Group Therapy, Gait, Safety, Therapeutic Exercise, Transfers Treatment Duration: Nov 12, 2017 Frequency: At least 5 of 7 days/Wk (IRF) Estimated Hrs Per Day: 1.5 hours per day Patient and/or Family Agrees t: Yes Safety Risks/Education Patient Education: Gait Training, Transfer Techniques, Correct Positioning, Safety Issues Teaching Recipient: Patient Teaching Methods: Discussion Response to Teaching: Verbalize Understanding Time/GCodes Time In: 1000 Time Out: 1100 Total Billed Treatment Time: 60 Total Billed Treatment 1, FA x4 (60m) G Codes Necessary: NANCY Lubin PTA Oct 24, 2017 12:28
--- NOTE | 2017-10-24 14:39 | Individualized Plan of Care ---
Individualized Plan of Care Rehab Nursing IPOC Order Admission Date Oct 22, 2017 at 10:30 Current Orders Orders Admission-Acute Rehab Unit (10/22/17 11:26) General/Regular (10/22/17 Lunch) Physical Therapy [place] (10/22/17 11:28) Occupational Therapy Rehab Ord (10/22/17 11:28) Code/Resuscitation (10/22/17 11:31) Ibuprofen Tablet (Motrin Tablet) (10/22/17 11:45) Acetaminophen Tablet (Tylenol Tablet) (10/22/17 11:45) Patient Visit (10/22/17 ) Pt Eval Moderate Complexity (10/22/17 ) Gait Training, Ea 15 Min (10/22/17 ) Ambulate TID (10/22/17 13:10) Sequential Compression Device 08,20 (10/22/17 13:10) Dvt/Vte Risk - Notifiy Physici 08 (10/22/17 13:10) Patient Visit (10/22/17 ) Speech Sound Lang Comp (10/22/17 ) Patient Visit (10/22/17 ) Functional Activities, Ea 15 (10/22/17 ) Gait Training, Ea 15 Min (10/22/17 ) Levothyroxine Tablet (Synthroid Tablet) (10/23/17 06:30) Lisinopril Tablet (Zestril Tablet) (10/23/17 09:00) Potassium Chloride (Tablet) (K Dur Table (10/23/17 07:00) Potassium Chloride (Tablet) (Klor Con Ta (10/22/17 21:00) Simvastatin Tablet (Zocor Tablet) (10/22/17 21:00) Diltiazem Tablet (Cardizem Tablet) (10/23/17 09:00) Aspirin Enteric Coated Tablet (Ecotrin T (10/23/17 09:00) Tramadol Tablet (Ultram Tablet) (10/22/17 19:00) Senna S Tablet (Senokot S Tablet) (10/22/17 21:00) Bisacodyl Tablet (Dulcolax Tablet) (10/23/17 09:00) Magnesium Hydroxide Oral Susp (Mom Oral (10/22/17 19:00) Folic Acid Tablet (Folic Acid Tablet) (10/23/17 09:00) Consult Physician (10/22/17 18:54) Ua Culture If Indicated (10/22/17 18:56) Diltiazem Sr 12 Hr Capsule (Cardizem Sr (10/23/17 09:00) Atorvastatin Tablet (Lipitor Tablet) (10/22/17 21:00) Aspirin Chewable Tablet (Baby Aspirin Ch (10/22/17 21:42) Lisinopril Tablet (Zestril Tablet) (10/22/17 21:42) Diltiazem Sr 12 Hr Capsule (Cardizem Sr (10/22/17 21:42) Aspirin Enteric Coated Tablet (Ecotrin T (10/22/17 21:54) Cbc No Diff (10/23/17 07:51) Comprehensive Metabolic Panel (10/23/17 07:51) Request For Cognitive Services (10/23/17 10:03) Carboxymethylcell Ophth Soln (Refresh Pl (10/23/17 11:45) (Nf) Carboxymethylcellulose Sodium (Ther (10/23/17 21:00) Patient May Use Own Med,Single (Patient (10/23/17 11:30) Carboxymethylcell Ophth Soln (Refresh Pl (10/23/17 12:00) Patient Visit (10/23/17 ) Functional Activities, Ea 15 (10/23/17 ) Wheelchair Mgmt/Propulsn 15min (10/23/17 ) Functional Activities, Ea 15 (10/23/17 ) Sequential Compression Device 08,20 (10/24/17 08:47) Humerus, Right, 2 Views (10/25/17 06:00) Rehab Nursing Orders: Ongoing Assess. of Cognitive Status, Ongoing Assess. of Function Status, Bowel Management, Disease Management & Educaiton, DVT Prophylaxis, Fall Prevention, Infection Prevention, Medication Management & Education, Management of Risks & Complications, Management of Skin Intergrity, Nutrition Management, Pain Management, Patient/Family Support, Wound Management PT IPOC Problem List: Activity Tolerance, Functional Strength, Safety, Balance, Gait, Transfer Treatment Plan: Continue Plan of Care Bed Mobility, Concurrent Therapy, Education, Functional Activity Ritchie, Functional Strength, Group Therapy, Gait, Safety, Therapeutic Exercise, Transfers Treatment Duration: Nov 12, 2017 Frequency: At least 5 of 7 days/Wk (IRF) Estimated Hrs Per Day: 1.5 hours per day OT IPOC Problems: Decreased UE Strength, Dependent Transfers, Impaired Funct Balance, Impaired Self-Care Skills, Restricted Funct UE ROM OT Treatment, Training and Edu: Yes OT Problems Pt would benefit from skilled OT to increase her independence in basic self care to allow her to safely return home wit family support Plan of Care: ADL Retraining, Functional Mobility, Group Exercise/Act as Ind ( education, exercise, act tolerance, functional mobility, R UE funct use, socialization), UE Funct Exercise/Act, UE Neuromus Re-Ed/Coord Treatment Duration: Nov 09, 2017 Frequency: At least 5 of 7 days/Wk (IRF) Estimated Hrs Per Day: 1.[address] IPOC Speech Therapy Treatment Plan: Discontinue ST Treatment Duration: Oct 24, 2017 Frequency: Modified Program (IRF) (No ST warranted.) Estimated Hrs Per Day: Other (No ST warranted.) Director Of Security/Case Mgmt Director Of Security/Case Managemen: Discharge Planning, Patient/Family Counseling Dietitian/Chemical Operations Specialist Dietitian/Chemical Operations Specialist to monitor nutritional status and make changes and/or recommendations as needed and work with speech pathology on dietary upgrades as the occur. Physician IPOC Medical Issues being managed closely and that require the 24 hour availability of a physician: Postop constipation Pain management HTN IGC code 16 Etiologic DX RT proximal humeral fracture Medical Issues: Bowel/Bladder Function, DVT Prophylaxis, Falls Precautions, Infection Protection, Pain Management, Weight Bearing Precautions, Wound Care, Other (List) Brief Synthesis of Preadmission Screen, Post-Admission Evaluation, and Therapy Evaluations: 77 yo female who lives alone and had a fall with resulting RT Prox femur fracturemanaged at OSH with Immobilizer Has supportive family that lives nearby [facility] as per above Medical Prognosis: Good Anticipated Length of Stay: 7--18 Maximize level of functional Independenc taking into consideration her rt arm being in immobilizer for several more weeks quite possible ortho reviewing films Anticipated d/c Destination: Home with family and [facility] GURINDER SPAIN MD Oct 24, 2017 14:39
--- NOTE | 2017-10-24 14:48 | Physical Therapy Daily Note ---
PT Daily Note-Current Subjective Pt laying Supine in bed upon arrival. Pt reports feeling better than this morning. Pt agrees to PT. Pain Numeric Pain Scale: 5-Moderate Pain Location: Right Location Body Site: Shoulder Pain Description: Ache Mental Status Patient Orientation: Person, Place, Situation Transfers Functional [place] Measure 0=Not Assessed/NA 4=Minimal Assistance 1=Total Assistance 5=Supervision or Setup 2=Maximal Assistance 6=Modified [place] 3=Moderate Assistance 7=Complete IndependenceIRFPAI Quality Coding Scale 6 Independent with activity with or without an assistive device 5 Patient requires set up or clean up by helper. Patient completes activity by themselves 4 Supervision or touching assist (CGA). [place] provide cues , steadying assist 3 The helper provides less than half the effort to complete the activity 2 The helper provides more than half the effort to complete the activity 1 Dependent. The helper does all the effort to complete an activity 7 Patient refused to complete or attempt activity 9 The patient did not perform the activity before the current illness or injury 88 Not attempted due to Medical conditions or safety concerns Weight Bearing Right Lower Extremity: Right Weight Bearing/Tolerated Exercises Supine Ex: Ankle pumps, Quad Set, Glut sets, Heel Slides, Hip abd/add Supine Reps: 10 Treatments Pt completes Supine Ex in bed with a couple short rest breaks. Pt's daughter arrives and PRN OCCUPATIONAL THERAPIST, daughter & pt discuss need for eating before meds given, rosendo. pain med. Pt also inquired about day pass for Sunday evening for Brother's Wake. Nurse notified. Pt is resting at end of tx, all needs met & call in hand. Assessment Current Status: Good Progress Pt is improving with strength but is sometimes anxious and needs kept on task. PT Short Term Goals Short Term Goals Time Frame: Oct 29, 2017 Gait (FIM): 1 Gait Distance Comment: 40' Gait Level of Assist: 4 Gait Assistive Device: Walker Pancho PT Low Pressure Firer Goals Chcf Goals PT Low Pressure Firer Goals Time Frame: Nov 12, 2017 Transfers (B,C,W/C) (FIM): 5 Sit to Lying (QC): 4 Lying-Sitting on Side/Bed(QC): 4 Sit to Stand (QC): 4 Rollin Roll Left to Right (QC): 4 Chair/[id number]-Ygakn Xfer(QC): 4 Car Transfer (QC): 4 Gait (FIM): 2 Distance: 50' Walk 10 feet (QC): 4 Walk 10ft-Uneven Surface(QC): 4 Walk 50ft with 2 Turns (QC): 4 Walk 150 ft (QC): 4 Gait Level of Assist: 4 Gait Assistive Device: Walker Pancho Stairs (FIM): 1 # of Steps: 1 1 Step (curb) (QC): 3 Stairs Level Of Assist: 4 PT Plan Problem List Problem List: Activity Tolerance, Functional Strength, Safety, Balance, Gait, Transfer Treatment/Plan Treatment Plan: Continue Plan of Care Treatment Plan: Bed Mobility, Concurrent Therapy, Education, Functional Activity Ritchie, Functional Strength, Group Therapy, Gait, Safety, Therapeutic Exercise, Transfers Treatment Duration: Nov 12, 2017 Frequency: At least 5 of 7 days/Wk (IRF) Estimated Hrs Per Day: 1.5 hours per day Patient and/or Family Agrees t: Yes Safety Risks/Education Patient Education: Correct Positioning, Safety Issues Teaching Recipient: Patient, Family Teaching Methods: Discussion Response to Teaching: Verbalize Understanding Time/GCodes Time In: 1330 Time Out: 1400 Total Billed Treatment Time: 30 Total Billed Treatment 1, FA x2 (30m) G Codes Necessary: NANCY Lubin PRN OCCUPATIONAL THERAPIST Oct 24, 2017 14:48
--- NOTE | 2017-10-24 15:16 | Occupational Ther Daily Note ---
OT Current Status-Daily Note Subjective Pt seen in room, up in bed, agreeable to OT. Daughter present. Pt apprehensive about moving R UE but pain not mentioned. Appearance Alert, cooperative Mental Status/Objective Functional [place] Measure 0=Not Assessed/NA 4=Minimal Assistance 1=Total Assistance 5=Supervision or Setup 2=Maximal Assistance 6=Modified [place] 3=Moderate Assistance 7=Complete [place] ADL-Treatment Functional [place] Measure 0=Not Assessed/NA 4=Minimal Assistance 1=Total Assistance 5=Supervision or Setup 2=Maximal Assistance 6=Modified [place] 3=Moderate Assistance 7=Complete IndependenceIRFPAI Quality Coding Scale 6 Independent with activity with or without an assistive device 5 Patient requires set up or clean up by helper. Patient completes activity by themselves 4 Supervision or touching assist (CGA). [place] provide cues , steadying assist 3 The helper provides less than half the effort to complete the activity 2 The helper provides more than half the effort to complete the activity 1 Dependent. The helper does all the effort to complete an activity 7 Patient refused to complete or attempt activity 9 The patient did not perform the activity before the current illness or injury 88 Not attempted due to Medical conditions or safety concerns Other Treatment Pt did 10 reps R elbow flex and ext, stretching elbow into more extension (it is held primarily ini flexion across her chest) at end of range. As she increased repetitions, movements became faster and more fluid. She also did 10 reps pronation/supination, wrist flexion and extension, finger flex and ext, thumb flex, ext and abduction. Pt education in purpose of intrinsic exercises and she did them first with L hand, with occasional tactile cues, then with R hand, needing more physical assistance. Edema is decreased in R fingers and across dorsum of hand and in forearm. Took Isotoner glove and Tubigrip off and did pt education for rubbing or massaging toward heart, to help decrease edema. Pt left up in bed, 4 rails up, all needs met. She would like to go to her brother's wake on Sunday evening and discussed with patient and daughter using a gait belt and handicapped bathrooms, as well as w/c for longer distances. Education OT Patient Education: Exercise program, Progress toward Goal/Update tx plan, Purpose of tx/functional activities Teaching Recipient: Patient, Family Teaching Methods: Demonstration, Discussion Response to Teaching: Verbalize Understanding, Return Demonstration, Reinforcement Needed OT Short Term Goals Short Term Goals Time Frame: Oct 29, 2017 Eating(FIM): 5 Toilet/Commode Transfer(FIM): 4 Additional Short Term Goals: 1-Demonstrate ADL Tasks, 2-Verbalize Understanding , 3-ImproveStrength/Ritchie 1=Demonstrate adherence to instructed precautions during ADL tasks. 2=Patient will verbalize/demonstrate understanding of assistive devices/ modifications for ADL. 3=Patient will improve strength/tolerance for activity to enable patient to perform ADL's. OT Developer Evangelist Goals Detention Goals Time Frame: Nov 09, 2017 Eating (FIM): 5 Eating (QC): 5 Groomin Oral Hygiene (QC): 5 Bathing(FIM): 4 Shower/Bathe Self (QC): 3 Upper Body Dressing(FIM): 5 Upper Body Dressing (QC): 5 Lower Body Dressing(FIM): 5 Lower Body Dressing (QC): 5 On/Off Footwear (QC): 5 Toileting(FIM): 6 Toileting Hygiene (QC): 6 Toilet/Commode Transfer(FIM): 6 Toilet/Commode Transfer (QC): 6 Shower Transfer(FIM): 5 Additional Goals: 1-Demonstrate ADL Tasks, 2-Verbalize Understanding, 3- ImproveStrength/Ritchie 1=Demonstrate adherence to instructed precautions during ADL tasks. 2=Patient will verbalize/demonstrate understanding of assistive devices/ modifications for ADL. 3=Patient will improve strength/tolerance for activity to enable patient to perform ADL's. OT Education/Plan Problem List/Assessment Pt would benefit from skilled OT to increase her independence in basic self care to allow her to safely return home wit family support Discharge Recommendations Plan/Recommendations: Continue POC Treatment Plan/Plan of Care Patient would benefit from OT for education, treatment and training to promote independence in ADL's, mobility, safety and/or upper extremity function for ADL' s. Plan of Care: ADL Retraining, Functional Mobility, Group Exercise/Act as Ind ( education, exercise, act tolerance, functional mobility, R UE funct use, socialization), UE Funct Exercise/Act, UE Neuromus Re-Ed/Coord Treatment Duration: Nov 09, 2017 Frequency: At least 5 of 7 days/Wk (IRF) Estimated Hrs Per Day: 1.5 hours per day Agreement: Yes Rehab Potential: Fair Time/GCodes Start Time: 14:00 Stop Time: 14:30 Total Time Billed (hr/min): 30 Billed Treatment Time visit, 30 minutes exercise MARIOLA COTTRELL OT Oct 24, 2017 15:16
[2017-10-24 18:00] VITALS: BP 148/67
[2017-10-24] MEDS: ATORVASTATIN 20 MG (LIPITOR) TABLET PO SCH (19:40)
[2017-10-24] MEDS: KCL 10 MEQ TAB (MICRO K) PO SCH (19:40)
[2017-10-25 05:41] VITALS: BP 166/72
[2017-10-25] MEDS: KCL 20 MEQ TAB (K-DUR) PO SCH (06:29)
[2017-10-25] MEDS: LEVOTHYROXINE 125 MCG (LEVOTHROID) TABLET PO SCH (06:29)
--- NOTE | 2017-10-25 08:28 | Progress Note (SOAP) ---
Subjective Time Seen by Provider: 08:25 Subjective/Events-last exam Patient has pain in the right upper extremity. Patient blood pressure little bit high. To monitor it. Patient's brother to have a tomorrow Objective Exam Vital Signs Date Time Temp Pulse Resp B/P (MAP) Pulse Ox O2 Delivery O2 Flow Rate FiO2 10/25/17 05:41 98.2 94 20 166/72 (103) 96 Room Air 10/24/17 18:00 99.2 78 16 148/67 (94) 98 Room Air I & O 10/25/17 07:00 Intake Total 1390 ml Balance 1390 ml Capillary Refill : Less Than 3 Seconds General Appearance: No Apparent Distress, Thin HEENT: Normal ENT Inspection Neck: Full Range of Motion, Normal Inspection Assessment/Plan Assessment/Plan Assess & Plan/Chief Complaint right knee effusion. Fall. Debility. Fracture of the humerus. Hypertension. history of colon cancer. Patient lives alone area . . Right knee infusion. fall. Fractured humerus. Hypertension. History of colon cancer. Patient's brother just . Hypertension Clinical Quality Measures DVT/VTE Risk/Contraindication: Risk Factor Score Per Nursin RFS Level Per Nursing on Admit: 3=High DAVID JONES DO Oct 25, 2017 08:28
--- NOTE | 2017-10-25 08:37 | PM & R (SOAP) Progress Note ---
Subjective This was a face to face visit with the patient. Date Seen by Provider: Oct 25, 2017 Time Seen by Provider: 07:50 Subjective/Events-last exam Patient was seen in her room this AM Patient min assist for transfers Xray of rt humerus pending Patient requesting bereavement pass for tomorrow Objective Physician Exam Last Set of Vital Signs Vital Signs Date Time Temp Pulse Resp B/P (MAP) Pulse Ox O2 Delivery O2 Flow Rate FiO2 10/25/17 05:41 98.2 94 20 166/72 (103) 96 Room Air Capillary Refill : Less Than 3 Seconds I&O Intake and Output 10/25/17 00:00 Intake Total 1440 ml Balance 1440 ml Intake Oral 1440 ml # Voids 7 # Bowel Movements 1 General: Alert, Oriented X3, Cooperative, No Acute Distress HEENT: PERRLA, EOMI, Mucous Memb Moist/[place], Other (Bruise rt faith) Neck: Supple, No JVD Lungs: Clear to Auscultation Heart: Regular Rate Abdomen: Normal Bowel Sounds, Soft, No Tenderness Extremities: Other (RT arm in immobilizer) Neuro: Strength at 5/5 X4 Ext, Other ( RT arm in immobilizer rt leg with tenderness rt knee with guarding remainder generalized weakness sensation intact ) Results Lab Data Laboratory Tests 10/22/17 17:30: Urine Color YELLOW, Urine Clarity CLEAR, Urine pH 6, Urine Specific [place] 1.020, Urine Protein 2+H, Urine Glucose (UA) NEGATIVE, Urine Ketones NEGATIVE, Urine Nitrite NEGATIVE, Urine Bilirubin NEGATIVE, Urine Urobilinogen 1, Urine Leukocyte Esterase 1+H, Urine RBC (Auto) NEGATIVE, Urine RBC NONE, Urine WBC RARE, Urine Squamous Epithelial Cells 0-2, Urine Crystals NONE, Urine Bacteria TRACE, Urine Casts NONE, Urine Mucus NEGATIVE, Urine Culture Indicated NO 10/23/17 08:13: White Blood Count 6.8, Red Blood Count 3.76L, Hemoglobin 12.0, Hematocrit 35, Mean Corpuscular Volume 93, Mean Corpuscular Hemoglobin 32, Mean Corpuscular Hemoglobin Concent 35, Red Cell Distribution Width 12.4, Platelet Count 178, Mean Platelet Volume 9.6, Sodium Level 134L, Potassium Level 3.6, Chloride Level 98, Carbon Dioxide Level 29, Anion Gap 7, Blood Urea Nitrogen 15, Creatinine 0.80, Estimat Glomerular Filtration Rate > 60, BUN/Creatinine Ratio 19, Glucose Level 97, Calcium Level 10.5H, Total Bilirubin 1.4H, Aspartate Amino Transf (AST/SGOT) 19, Alanine Aminotransferase (ALT/SGPT) 11, Alkaline Phosphatase 59, Total Protein 7.6, Albumin 3.8 Assessment/Plan Assessment and Plan Prox rt humerus fracture managed with immobilizer OSH secondary to fall F/U Xray to be obtained RT Knee contusion RT Bahai contusion healing HTN controlled DVT prophylaxis Patient has agreed to SCDS in Lieu of Lovenox SubCUT Constipation resolved with meds Hypothyroidism on replacement Prior colon surgery for CA remote Plan Continue PT/OT CBereavement pass for tomorrow see orders Team Conference held yesterday-See report for full functional update and POC and ELOS (1) Fracture, humerus closed Co-Morbidities that are continuing to impact the rehab process: (include details ) GURINDER SPAIN MD Oct 25, 2017 08:37
[2017-10-25] MEDS: lisINopril 40 MG (PRINIVIL) TABLET PO SCH (09:42)
[2017-10-25] MEDS: FOLIC ACID 1 MG TAB PO SCH (09:42)
[2017-10-25] MEDS: ASPIRIN E.C. 81 MG (ECOTRIN) TAB PO SCH (09:42)
[2017-10-25] MEDS: BISACODYL 5 MG (DULCOLAX) TABLET PO SCH (09:42)
[2017-10-25] MEDS: DILTIAZEM SR 90 MG (CARDIZEM LA) PO SCH (09:42)
[2017-10-25] MEDS: SENNA W/DOCUSATE (SENOKOT S) TABLET PO SCH ×2 (09:42→20:38)
--- NOTE | 2017-10-25 10:47 | Occupational Ther Daily Note ---
OT Current Status-Daily Note Subjective Pt alert, sitting up in bed. Pt agrees to therapy. Pt c/o pain in R elbow and that it was swelling last night. Mental Status/Objective Patient Orientation: Person, Place, Time, Situation Functional [place] Measure 0=Not Assessed/NA 4=Minimal Assistance 1=Total Assistance 5=Supervision or Setup 2=Maximal Assistance 6=Modified [place] 3=Moderate Assistance 7=Complete [place] ADL-Treatment Pt takes increased time to complete ADLs due to pain with R UE and slow movements. Dressing stick and sock aide given to pt to use during hospital stay then education on use. Pt will required repetition to become efficient with use of AE. Pt requires encouragement to complete any task with R fingers/ hand Pt will not isolate elbow, wrist, hand and finger movement with functional tasks which causes movement in R shldr and increased pain. Pt was asking about heart medicine patch that she wears a week at a time and eye drops , reported to nrsg. After therapy, pt sitting in recliner with call light/ phone in reach. Functional [place] Measure 0=Not Assessed/NA 4=Minimal Assistance 1=Total Assistance 5=Supervision or Setup 2=Maximal Assistance 6=Modified [place] 3=Moderate Assistance 7=Complete IndependenceIRFPAI Quality Coding Scale 6 Independent with activity with or without an assistive device 5 Patient requires set up or clean up by helper. Patient completes activity by themselves 4 Supervision or touching assist (CGA). [place] provide cues , steadying assist 3 The helper provides less than half the effort to complete the activity 2 The helper provides more than half the effort to complete the activity 1 Dependent. The helper does all the effort to complete an activity 7 Patient refused to complete or attempt activity 9 The patient did not perform the activity before the current illness or injury 88 Not attempted due to Medical conditions or safety concerns Eating (FIM): 5 (Setup with opening packages/containers. Pt will ask for assistance before trying to complete tasks by self. Uses built up handle with utensil to feed self.) Eating (QC): 5 Grooming (FIM): 5 (Supervision standing at sink to complete oral care. Sitting to complete all other grooming.) Oral Hygiene (QC): 4 Bathing (FIM): 5 (Using shower bench, hand held shower, grabbars pt able to complete bathing with supervision. Pt requires assist to turn on water.) Shower/Bathe Self (QC): 4 Upper Body (FIM): 4 (Min A to thread R UE into sleeve then to bring shirt around back to place L UE into sleeve. Pt is able to button.) Upper Body Dressing (QC): 3 Lower Body Dressing (FIM): 3 (Attempted to use AE. Pt requires assist to thread lower body clothing over feet and to don/doff socks. Pt is fearful of leaning forward to attempte to don/doff lower body clothing without AE.) Lower Body Dressing (QC): 3 On/Off Footwear (QC): 2 Toileting (FIM): 5 (SBA using grabbars, BSC and padilla walker.) Toileting Hygiene (QC): 4 Toilet/Commode Transfer (FIM): 5 (SBA using grabbars, BSC and padilla walker.) Toilet Transfer (QC): 4 Shower Transfer(FIM): 5 (SBA using grabbars, BSC and padilla walker.) Education OT Patient Education: Use of adapted equipment Teaching Recipient: Patient Teaching Methods: Demonstration, Discussion Response to Teaching: Return Demonstration, Reinforcement Needed OT Short Term Goals Short Term Goals Time Frame: Oct 29, 2017 Eating(FIM): 5 Toilet/Commode Transfer(FIM): 4 Additional Short Term Goals: 1-Demonstrate ADL Tasks, 2-Verbalize Understanding , 3-ImproveStrength/Ritchie 1=Demonstrate adherence to instructed precautions during ADL tasks. 2=Patient will verbalize/demonstrate understanding of assistive devices/ modifications for ADL. 3=Patient will improve strength/tolerance for activity to enable patient to perform ADL's. OT Mortgage Closer Goals Mortgage Closer Goals Time Frame: Nov 09, 2017 Eating (FIM): 5 Eating (QC): 5 Groomin Oral Hygiene (QC): 5 Bathing(FIM): 4 Shower/Bathe Self (QC): 3 Upper Body Dressing(FIM): 5 Upper Body Dressing (QC): 5 Lower Body Dressing(FIM): 5 Lower Body Dressing (QC): 5 On/Off Footwear (QC): 5 Toileting(FIM): 6 Toileting Hygiene (QC): 6 Toilet/Commode Transfer(FIM): 6 Toilet/Commode Transfer (QC): 6 Shower Transfer(FIM): 5 Additional Goals: 1-Demonstrate ADL Tasks, 2-Verbalize Understanding, 3- ImproveStrength/Ritchie 1=Demonstrate adherence to instructed precautions during ADL tasks. 2=Patient will verbalize/demonstrate understanding of assistive devices/ modifications for ADL. 3=Patient will improve strength/tolerance for activity to enable patient to perform ADL's. OT Education/Plan Problem List/Assessment Pt would benefit from skilled OT to increase her independence in basic self care to allow her to safely return home wit family support Discharge Recommendations Plan/Recommendations: Continue POC Treatment Plan/Plan of Care Patient would benefit from OT for education, treatment and training to promote independence in ADL's, mobility, safety and/or upper extremity function for ADL' s. Plan of Care: ADL Retraining, Functional Mobility, Group Exercise/Act as Ind ( education, exercise, act tolerance, functional mobility, R UE funct use, socialization), UE Funct Exercise/Act, UE Neuromus Re-Ed/Coord Treatment Duration: Nov 09, 2017 Frequency: At least 5 of 7 days/Wk (IRF) Estimated Hrs Per Day: 1.5 hours per day Agreement: Yes Rehab Potential: Fair Time/GCodes Start Time: 08:50 Stop Time: 10:30 Total Time Billed (hr/min): 100 Billed Treatment Time 1 visit-ADL 7 (100 min) KI MORENO Oct 25, 2017 10:47
[2017-10-25] MEDS: CARBOXYMETHYLCELLULOSE SODIUM OU SCH ×2 (11:12→20:40)
--- NOTE | 2017-10-25 12:06 | Physical Therapy Daily Note ---
PT Daily Note-Current Subjective Pt sitting in recliner upon arrival. Pt agrees to PT. Pain Numeric Pain Scale: 5-Moderate Pain Location: Right Location Body Site: Shoulder Pain Description: Ache Mental Status Patient Orientation: Person, Place, Time, Situation Attachments: Other-See Comments (Sling for R UE.) Transfers Functional [place] Measure 0=Not Assessed/NA 4=Minimal Assistance 1=Total Assistance 5=Supervision or Setup 2=Maximal Assistance 6=Modified [place] 3=Moderate Assistance 7=Complete IndependenceIRFPAI Quality Coding Scale 6 Independent with activity with or without an assistive device 5 Patient requires set up or clean up by helper. Patient completes activity by themselves 4 Supervision or touching assist ([facility]). [place] provide cues , steadying assist 3 The helper provides less than half the effort to complete the activity 2 The helper provides more than half the effort to complete the activity 1 Dependent. The helper does all the effort to complete an activity 7 Patient refused to complete or attempt activity 9 The patient did not perform the activity before the current illness or injury 88 Not attempted due to Medical conditions or safety concerns Scootin Sit to/from Stand: 4 Sit to Stand (QC): 4 Weight Bearing Right Lower Extremity: Right Weight Bearing/Tolerated Gait Training Does the Patient Walk?: Yes Distance (FIM): 3=150 ft Distance: 150' Walk 10 feet (QC): 4 Walk 50 ft with 2 Turns(QC): 4 Walk 150 ft (QC): 4 Gait Level of Assist: 4 Gait Persons Needed: 1 Gait Assistive Device: Walker Pancho Pt walks with very slow cha and antalgic gait. Wheelchair Training Does the Pt Use a Wheelchair?: No Exercises Seated Therapy Exercises: Ankle pumps, Long arc quads, Hip flexion, Kicking activity, Hip abd/add Seated Reps: 15 Treatments Pt transfers from recliner to standing using Pancho at [facility]. Pt ambulates in hallway using Pancho at [facility] for balance. Pt rests in chair in Therapy Gym then completes Seated Ex in chair. After short rest, pt returns to room to use restroom then transfers to recliner at end of tx. Pt has all needs met, call light in hand. Assessment Current Status: Good Progress Pt fatigues easily and walks with very slow cha. Pt is anxious and needs reassurance at times. PT Short Term Goals Short Term Goals Time Frame: Oct 29, 2017 Gait (FIM): 1 Gait Distance Comment: 40' Gait Level of Assist: 4 Gait Assistive Device: Walker Pancho PT Senior Living Goals Assistant Professor Of Criminal Justice Goals PT Assistant Professor Of Criminal Justice Goals Time Frame: Nov 12, 2017 Transfers (B,C,W/C) (FIM): 5 Sit to Lying (QC): 4 Lying-Sitting on Side/Bed(QC): 4 Sit to Stand (QC): 4 Rollin Roll Left to Right (QC): 4 Chair/Kan-el-Jefbi Xfer(QC): 4 Car Transfer (QC): 4 Gait (FIM): 2 Distance: 50' Walk 10 feet (QC): 4 Walk 10ft-Uneven Surface(QC): 4 Walk 50ft with 2 Turns (QC): 4 Walk 150 ft (QC): 4 Gait Level of Assist: 4 Gait Assistive Device: Walker Pancho Stairs (FIM): 1 # of Steps: 1 1 Step (curb) (QC): 3 Stairs Level Of Assist: 4 PT Plan Problem List Problem List: Activity Tolerance, Functional Strength, Safety, Balance, Gait, Transfer Treatment/Plan Treatment Plan: Continue Plan of Care Treatment Plan: Bed Mobility, Concurrent Therapy, Education, Functional Activity Ritchie, Functional Strength, Group Therapy, Gait, Safety, Therapeutic Exercise, Transfers Treatment Duration: Nov 12, 2017 Frequency: At least 5 of 7 days/Wk (IRF) Estimated Hrs Per Day: 1.5 hours per day Patient and/or Family Agrees t: Yes Safety Risks/Education Patient Education: Gait Training, Transfer Techniques, Correct Positioning, Safety Issues Teaching Recipient: Patient Teaching Methods: Discussion Response to Teaching: Verbalize Understanding Time/GCodes Time In: 1100 Time Out: 1200 Total Billed Treatment Time: 60 Total Billed Treatment 1, FA (15m), EX (15m) & GT (30m) G Codes Necessary: NANCY Lubin REAL ESTATE ASSET MANAGER Oct 25, 2017 12:06
--- NOTE | 2017-10-25 14:01 | Diagnostic Imaging Report ---
INDICATION: Right humerus fracture 3 views of right humerus show a nondisplaced transverse fracture of the right humeral neck. IMPRESSION: Nondisplaced right humeral neck fracture. There are no previous studies available for comparison, but this was reported to have been present on images from 10/17/2017. Dictated by: Dictated on workstation # [id number]
--- NOTE | 2017-10-25 16:03 | Physical Therapy Daily Note ---
PT Daily Note-Current Subjective Pt sitting in recliner upon arrival. Pt agrees to PT. Pt reports having company in a little while so would like to have PT now before they come. Pain Numeric Pain Scale: 5-Moderate Pain Location: Right Location Body Site: Shoulder Pain Description: Ache Mental Status Patient Orientation: Person, Place, Time, Situation Attachments: Other-See Comments (Sling for R arm) Transfers Functional [place] Measure 0=Not Assessed/NA 4=Minimal Assistance 1=Total Assistance 5=Supervision or Setup 2=Maximal Assistance 6=Modified [place] 3=Moderate Assistance 7=Complete IndependenceIRFPAI Quality Coding Scale 6 Independent with activity with or without an assistive device 5 Patient requires set up or clean up by helper. Patient completes activity by themselves 4 Supervision or touching assist ([facility]). [place] provide cues , steadying assist 3 The helper provides less than half the effort to complete the activity 2 The helper provides more than half the effort to complete the activity 1 Dependent. The helper does all the effort to complete an activity 7 Patient refused to complete or attempt activity 9 The patient did not perform the activity before the current illness or injury 88 Not attempted due to Medical conditions or safety concerns [place] Sit to/from Stand: 4 Sit to Stand (QC): 4 Weight Bearing Right Lower Extremity: Right Weight Bearing/Tolerated Gait Training Does the Patient Walk?: Yes Distance (FIM): 1=up to 49 ft Distance: 25' Walk 10 feet (QC): 4 Gait Level of Assist: 4 Gait Persons Needed: 1 Gait Assistive Device: Walker Pancho Wheelchair Training Does the Pt Use a Wheelchair?: No Exercises Seated Therapy Exercises: Ankle pumps, Long arc quads, Hip flexion, Kicking activity, Hip abd/add Seated Reps: 15 Treatments Pt transfers from recliner to standing using Pancho at [facility]. Pt uses restroom then returns to recliner & completes Seated Ex. Pt resting in recliner & visiting with friends at end of tx, all needs met including call light next to pt. Assessment Current Status: Good Progress Pt fatigues easily & reports pain in R shoulder during tx. Pt self limits and takes extended time to complete tasks. PT Short Term Goals Short Term Goals Time Frame: Oct 29, 2017 Gait (FIM): 1 Gait Distance Comment: 40' Gait Level of Assist: 4 Gait Assistive Device: Walker Pancho PT Snf Goals Snf Goals PT Cdl Program Coordinator Goals Time Frame: Nov 12, 2017 Transfers (B,C,W/C) (FIM): 5 Sit to Lying (QC): 4 Lying-Sitting on Side/Bed(QC): 4 Sit to Stand (QC): 4 Rollin Roll Left to Right (QC): 4 Chair/Quj-ka-Viskb Xfer(QC): 4 Car Transfer (QC): 4 Gait (FIM): 2 Distance: 50' Walk 10 feet (QC): 4 Walk 10ft-Uneven Surface(QC): 4 Walk 50ft with 2 Turns (QC): 4 Walk 150 ft (QC): 4 Gait Level of Assist: 4 Gait Assistive Device: Walker Pancho Stairs (FIM): 1 # of Steps: 1 1 Step (curb) (QC): 3 Stairs Level Of Assist: 4 PT Plan Problem List Problem List: Activity Tolerance, Functional Strength, Safety, Balance, Gait, Transfer Treatment/Plan Treatment Plan: Continue Plan of Care Treatment Plan: Bed Mobility, Concurrent Therapy, Education, Functional Activity Ritchie, Functional Strength, Group Therapy, Gait, Safety, Therapeutic Exercise, Transfers Treatment Duration: Nov 12, 2017 Frequency: At least 5 of 7 days/Wk (IRF) Estimated Hrs Per Day: 1.5 hours per day Patient and/or Family Agrees t: Yes Safety Risks/Education Patient Education: Gait Training, Transfer Techniques, Correct Positioning, Safety Issues Teaching Recipient: Patient Teaching Methods: Discussion Response to Teaching: Verbalize Understanding Time/GCodes Time In: 1350 Time Out: 1420 Total Billed Treatment Time: 30 Total Billed Treatment 1, EX (15m) & FA (15m) G Codes Necessary: NANCY Lubin PTA Oct 25, 2017 16:03
[2017-10-25 18:00] VITALS: BP 166/73
[2017-10-25] MEDS: KCL 10 MEQ TAB (MICRO K) PO SCH (20:38)
[2017-10-25] MEDS: ATORVASTATIN 20 MG (LIPITOR) TABLET PO SCH (20:38)
[2017-10-25] MEDS ORDERED: cloNIDine 0.1 MG PATCH (CATAPRES TTS) TDSY TD SCH (21:00)
[2017-10-26 05:04] VITALS: BP 168/71
[2017-10-26] MEDS: KCL 20 MEQ TAB (K-DUR) PO SCH (05:48)
[2017-10-26] MEDS: LEVOTHYROXINE 125 MCG (LEVOTHROID) TABLET PO SCH (05:48)
--- NOTE | 2017-10-26 07:39 | Occupational Ther Daily Note ---
OT Current Status-Daily Note Subjective Pt alert, lying in bed. Pt agrees to therapy. No c/o pain at this time. Edema (R hand, forearm and elbow) decreased with glove and stockinette Mental Status/Objective Patient Orientation: Person, Place, Time, Situation Functional [place] Measure 0=Not Assessed/NA 4=Minimal Assistance 1=Total Assistance 5=Supervision or Setup 2=Maximal Assistance 6=Modified [place] 3=Moderate Assistance 7=Complete [place] ADL-Treatment Pt declined shower today. Pt able to go from supine to sitting EOB slowly with HOB slightly raised. Pt was dizzy after sitting up, took increased time for dizziness to subside. Given hot washcloth to wash face. Pt then ambulated with close SBA using padilla-walker to bathroom. SBA using padilla-walker, BSC and grabbars to complete toilet transfer. SBA for toileting hygiene and manipulation of clothes. Pt then ambulated to sink to wash hands and comb hair , SBA using sink for stability. After coming back from therapy gym. Pt ordered breakfast. Pt was educated on where numbers were on phone for dietary and how to turn on phone. Pt then ordered own breakfast. Pt was able to open containers by supporting with R hand and taking lid off with L. Assist to open containers. Pt then was able to feed self with built up handle utensils. Functional [place] Measure 0=Not Assessed/NA 4=Minimal Assistance 1=Total Assistance 5=Supervision or Setup 2=Maximal Assistance 6=Modified [place] 3=Moderate Assistance 7=Complete IndependenceIRFPAI Quality Coding Scale 6 Independent with activity with or without an assistive device 5 Patient requires set up or clean up by helper. Patient completes activity by themselves 4 Supervision or touching assist ([facility]). [place] provide cues , steadying assist 3 The helper provides less than half the effort to complete the activity 2 The helper provides more than half the effort to complete the activity 1 Dependent. The helper does all the effort to complete an activity 7 Patient refused to complete or attempt activity 9 The patient did not perform the activity before the current illness or injury 88 Not attempted due to Medical conditions or safety concerns Eating (FIM): 5 Eating (QC): 5 Grooming (FIM): 5 Oral Hygiene (QC): 4 Toileting (FIM): 5 Toileting Hygiene (QC): 4 Toilet/Commode Transfer (FIM): 5 Toilet Transfer (QC): 4 Other Treatment Pt ambulated using padilla-walker to therapy gym, close SBA. Pt requires verbal directions due to decreased vision. Completed resistive clothespins with L hand to increase dexterity and strength for daily functional tasks. Practicing bending over and picking items off of floor while sitting for dressing. Pt then ambulated back to room. After therapy, pt sitting in recliner eating breakfast. Call light/phone in reach. All needs met in room. OT Short Term Goals Short Term Goals Time Frame: Oct 29, 2017 Eating(FIM): 5 Toilet/Commode Transfer(FIM): 4 Additional Short Term Goals: 1-Demonstrate ADL Tasks, 2-Verbalize Understanding , 3-ImproveStrength/Ritchie 1=Demonstrate adherence to instructed precautions during ADL tasks. 2=Patient will verbalize/demonstrate understanding of assistive devices/ modifications for ADL. 3=Patient will improve strength/tolerance for activity to enable patient to perform ADL's. OT Box Hinge And Lock Attacher Goals Retirement Goals Time Frame: Nov 09, 2017 Eating (FIM): 5 Eating (QC): 5 Groomin Oral Hygiene (QC): 5 Bathing(FIM): 4 Shower/Bathe Self (QC): 3 Upper Body Dressing(FIM): 5 Upper Body Dressing (QC): 5 Lower Body Dressing(FIM): 5 Lower Body Dressing (QC): 5 On/Off Footwear (QC): 5 Toileting(FIM): 6 Toileting Hygiene (QC): 6 Toilet/Commode Transfer(FIM): 6 Toilet/Commode Transfer (QC): 6 Shower Transfer(FIM): 5 Additional Goals: 1-Demonstrate ADL Tasks, 2-Verbalize Understanding, 3- ImproveStrength/Ritchie 1=Demonstrate adherence to instructed precautions during ADL tasks. 2=Patient will verbalize/demonstrate understanding of assistive devices/ modifications for ADL. 3=Patient will improve strength/tolerance for activity to enable patient to perform ADL's. OT Education/Plan Problem List/Assessment Pt would benefit from skilled OT to increase her independence in basic self care to allow her to safely return home wit family support Discharge Recommendations Plan/Recommendations: Continue POC Treatment Plan/Plan of Care Patient would benefit from OT for education, treatment and training to promote independence in ADL's, mobility, safety and/or upper extremity function for ADL' s. Plan of Care: ADL Retraining, Functional Mobility, Group Exercise/Act as Ind ( education, exercise, act tolerance, functional mobility, R UE funct use, socialization), UE Funct Exercise/Act, UE Neuromus Re-Ed/Coord Treatment Duration: Nov 09, 2017 Frequency: At least 5 of 7 days/Wk (IRF) Estimated Hrs Per Day: 1.5 hours per day Agreement: Yes Rehab Potential: Fair Time/GCodes Start Time: 06:55 Stop Time: 08:35 Total Time Billed (hr/min): 100 Billed Treatment Time 1 visit-ADL 6 (85 min) FA 1 (15 min) KI MORENO Oct 26, 2017 07:39
--- NOTE | 2017-10-26 08:07 | PM & R (SOAP) Progress Note ---
Subjective This was a face to face visit with the patient. Date Seen by Provider: Oct 26, 2017 Time Seen by Provider: 07:45 Subjective/Events-last exam Patient was seenon unit in common area with Ot Patient min assist for transfers and ambulating with shoulder immobilizer and hemicane.Xray reveals nondisplaced fracture of humeral neck. Objective Physician Exam Last Set of Vital Signs Vital Signs Date Time Temp Pulse Resp B/P (MAP) Pulse Ox O2 Delivery O2 Flow Rate FiO2 10/26/17 05:04 99.0 97 16 168/71 (103) 99 Room Air Capillary Refill : Less Than 3 Seconds I&O Intake and Output 10/26/17 00:00 Intake Total 1700 ml Balance 1700 ml Intake Oral 1700 ml # Voids 7 # Bowel Movements 1 General: Alert, Oriented X3, Cooperative, No Acute Distress HEENT: PERRLA, EOMI, Mucous Memb Moist/Scenic, Other (Bruise rt congregation) Neck: Supple, No JVD Lungs: Clear to Auscultation Heart: Regular Rate Abdomen: Normal Bowel Sounds, Soft, No Tenderness Extremities: Other (RT arm in immobilizer) Neuro: Strength at 5/5 X4 Ext, Other ( RT arm in immobilizer rt leg with tenderness rt knee with guarding remainder generalized weakness sensation intact ) Results Lab Data Laboratory Tests 10/23/17 08:13: White Blood Count 6.8, Red Blood Count 3.76L, Hemoglobin 12.0, Hematocrit 35, Mean Corpuscular Volume 93, Mean Corpuscular Hemoglobin 32, Mean Corpuscular Hemoglobin Concent 35, Red Cell Distribution Width 12.4, Platelet Count 178, Mean Platelet Volume 9.6, Sodium Level 134L, Potassium Level 3.6, Chloride Level 98, Carbon Dioxide Level 29, Anion Gap 7, Blood Urea Nitrogen 15, Creatinine 0.80, Estimat Glomerular Filtration Rate > 60, BUN/Creatinine Ratio 19, Glucose Level 97, Calcium Level 10.5H, Total Bilirubin 1.4H, Aspartate Amino Transf (AST/SGOT) 19, Alanine Aminotransferase (ALT/SGPT) 11, Alkaline Phosphatase 59, Total Protein 7.6, Albumin 3.8 Assessment/Plan Assessment and Plan Rt humeral neck fracture s/p fall managed with immobilizer RT knee contusion RT congregation contusion healing HTN controlled DVT prophylaxis SCDS Constipation treated Hypothyroidism on replacement Prior colon surgery for CA Plan Continue PT/OT SW to f/u with patient and family re discharge plans Bereavement pass for patient today See orders (1) Fracture, humerus closed Co-Morbidities that are continuing to impact the rehab process: (include details ) GURINDER SPAIN MD Oct 26, 2017 08:07
--- NOTE | 2017-10-26 08:11 | Progress Note (SOAP) ---
Subjective Time Seen by Provider: 08:05 Subjective/Events-last exam Patient had Dr. Isidro for fracture. X-ray yesterday showed same alignment. Patient's blood pressures elevated. To add lisinopril. Patient improving Objective Exam Vital Signs Date Time Temp Pulse Resp B/P (MAP) Pulse Ox O2 Delivery O2 Flow Rate FiO2 10/26/17 05:04 99.0 97 16 168/71 (103) 99 Room Air 10/25/17 18:00 98.4 89 14 166/73 (104) 99 Room Air 10/25/17 09:00 Room Air I & O 10/26/17 07:00 Intake Total 1700 ml Balance 1700 ml Capillary Refill : Less Than 3 Seconds General Appearance: No Apparent Distress, Thin HEENT: Normal ENT Inspection Neck: Full Range of Motion Respiratory: Lungs Clear, No Accessory Muscle Use, No Respiratory Distress Cardiovascular: Regular Rate, Rhythm Gastrointestinal: non tender, soft Assessment/Plan Assessment/Plan Assess & Plan/Chief Complaint right knee effusion. Fall. Debility. Fracture of the humerus. Hypertension. history of colon cancer. Patient lives alone area . . Right knee infusion. fall. Fractured humerus. Hypertension. History of colon cancer. Patient's brother just . Hypertension. . 10/26/17. Right knee effusion. Fractured humerus. Hypertension. History of colon cancer. 2. Lisinopril. Consult Dr. Isidro orthopedics Clinical Quality Measures DVT/VTE Risk/Contraindication: Risk Factor Score Per Nursin RFS Level Per Nursing on Admit: 3=High DAVID JONES DO Oct 26, 2017 08:11
[2017-10-26 08:45] VITALS: BP 168/75
[2017-10-26] MEDS: DILTIAZEM SR 90 MG (CARDIZEM LA) PO SCH (08:50)
[2017-10-26] MEDS: ASPIRIN E.C. 81 MG (ECOTRIN) TAB PO SCH (08:51)
[2017-10-26] MEDS: lisINopril 40 MG (PRINIVIL) TABLET PO SCH (08:51)
[2017-10-26] MEDS: FOLIC ACID 1 MG TAB PO SCH (08:51)
[2017-10-26] MEDS: BISACODYL 5 MG (DULCOLAX) TABLET PO SCH (08:52)
[2017-10-26] MEDS: SENNA W/DOCUSATE (SENOKOT S) TABLET PO SCH ×2 (08:53→23:42)
[2017-10-26] MEDS ORDERED: lisINopril 5 MG (PRINIVIL) TABLET PO SCH (09:00)
[2017-10-26] MEDS: CARBOXYMETHYLCELLULOSE SODIUM OU SCH ×2 (09:05→23:49)
[2017-10-26 09:45] VITALS: BP 171/80
[2017-10-26 09:53] VITALS: BP 139/59
--- NOTE | 2017-10-26 09:59 | Physical Therapy Daily Note ---
PT Daily Note-Current Subjective Patient in recliner pre tx, agrees to PT, no complaints of pain. Appearance Patient in recliner post tx with nurse call, phone, tray, all needs met. Nurse in the room. Mental Status Patient Orientation: Person, Place, Situation arm brace Transfers Functional [place] Measure 0=Not Assessed/NA 4=Minimal Assistance 1=Total Assistance 5=Supervision or Setup 2=Maximal Assistance 6=Modified [place] 3=Moderate Assistance 7=Complete IndependenceIRFPAI Quality Coding Scale 6 Independent with activity with or without an assistive device 5 Patient requires set up or clean up by helper. Patient completes activity by themselves 4 Supervision or touching assist ([facility]). [place] provide cues , steadying assist 3 The helper provides less than half the effort to complete the activity 2 The helper provides more than half the effort to complete the activity 1 Dependent. The helper does all the effort to complete an activity 7 Patient refused to complete or attempt activity 9 The patient did not perform the activity before the current illness or injury 88 Not attempted due to Medical conditions or safety concerns Transfers (B, C, W/C) (FIM): 4 Sit to/from Stand: 4 Bed to/from Chair: 4 CGA, cues for direction. Weight Bearing Right Lower Extremity: Right Weight Bearing/Tolerated Gait Training Gait (FIM): 4 Distance: 150' Gait Level of Assist: 4 Gait Persons Needed: 1 Gait Assistive Device: Walker Pancho CGA, cues for direction, very slow ambulation Exercises Standing: Hip Abduction, Heel/toe raises, Marching Standing Reps: 15 NuStep Minutes: 15 NuStep Workload: 4 Treatments transfers, ambulation, functional strengthening. Patient began to feel "woozy" at the end of treatment, her BP was 184/75 and HR was 101bpm. Nurse notified. Patient transferred to wheelchair and taken back to her room and she transferred to her recliner. Assessment Current Status: Poor Progress Patient had high BP at the end of treatment. Nurse notified. PT Short Term Goals Short Term Goals Time Frame: Oct 29, 2017 Gait (FIM): 1 Gait Distance Comment: 40' Gait Level of Assist: 4 Gait Assistive Device: Walker Pancho PT Nursing Home Goals Nursing Home Goals PT Nursing Home Goals Time Frame: Nov 12, 2017 Transfers (B,C,W/C) (FIM): 5 Sit to Lying (QC): 4 Lying-Sitting on Side/Bed(QC): 4 Sit to Stand (QC): 4 Rollin Roll Left to Right (QC): 4 Chair/Egq-cz-Piuab Xfer(QC): 4 Car Transfer (QC): 4 Gait (FIM): 2 Distance: 50' Walk 10 feet (QC): 4 Walk 10ft-Uneven Surface(QC): 4 Walk 50ft with 2 Turns (QC): 4 Walk 150 ft (QC): 4 Gait Level of Assist: 4 Gait Assistive Device: Walker Pancho Stairs (FIM): 1 # of Steps: 1 1 Step (curb) (QC): 3 Stairs Level Of Assist: 4 PT Plan Problem List Problem List: Activity Tolerance, Functional Strength, Safety, Balance, Gait, Transfer, Bed Mobility, ROM Treatment/Plan Treatment Plan: Continue Plan of Care Treatment Plan: Bed Mobility, Concurrent Therapy, Education, Functional Activity Ritchie, Functional Strength, Group Therapy, Gait, Safety, Therapeutic Exercise, Transfers Treatment Duration: Nov 12, 2017 Frequency: At least 5 of 7 days/Wk (IRF) Estimated Hrs Per Day: 1.5 hours per day Patient and/or Family Agrees t: Yes Safety Risks/Education Patient Education: Gait Training, Transfer Techniques, Correct Positioning, Safety Issues Teaching Recipient: Patient Teaching Methods: Demonstration, Discussion Response to Teaching: Reinforcement Needed Time/GCodes Time In: 0900 Time Out: 1000 Total Billed Treatment Time: 60 Total Billed Treatment 1 visit GT 15' EX 25' FA 20' JOSÉ MIGUEL DOOLEY PT Oct 26, 2017 09:59
[2017-10-26 10:35] VITALS: BP 168/72
--- NOTE | 2017-10-26 13:32 | Physical Therapy Daily Note ---
PT Daily Note-Current Subjective Patient needs to use the restroom, no complaints of pain pre tx. Patient uses the restroom and is able to pull down/up her pants with SBA. Appearance Patient in recliner post tx with nurse call, phone, tray, all needs met. Mental Status Patient Orientation: Person, Place, Situation arm brace Transfers Functional [place] Measure 0=Not Assessed/NA 4=Minimal Assistance 1=Total Assistance 5=Supervision or Setup 2=Maximal Assistance 6=Modified [place] 3=Moderate Assistance 7=Complete IndependenceIRFPAI Quality Coding Scale 6 Independent with activity with or without an assistive device 5 Patient requires set up or clean up by helper. Patient completes activity by themselves 4 Supervision or touching assist (CGA). [place] provide cues , steadying assist 3 The helper provides less than half the effort to complete the activity 2 The helper provides more than half the effort to complete the activity 1 Dependent. The helper does all the effort to complete an activity 7 Patient refused to complete or attempt activity 9 The patient did not perform the activity before the current illness or injury 88 Not attempted due to Medical conditions or safety concerns Transfers (B, C, W/C) (FIM): 5 Sit to/from Stand: 5 Bed to/from Chair: 5 Weight Bearing Right Lower Extremity: Right Weight Bearing/Tolerated Gait Training Gait (FIM): 5 Distance: 150'x2 Gait Level of Assist: 5 Gait Persons Needed: 1 Gait Assistive Device: Walker Pancho close SBA, cues for direction due to poor vision Treatments transfers, ambulation, patient was toileted once Assessment Current Status: Fair Progress improved ambulation, no complaints of dizziness like this morning PT Short Term Goals Short Term Goals Time Frame: Oct 29, 2017 Gait (FIM): 1 Gait Distance Comment: 40' Gait Level of Assist: 4 Gait Assistive Device: Walker Pancho PT Jail Goals Radiologic Technologist Chief Goals PT Radiologic Technologist Chief Goals Time Frame: Nov 12, 2017 Transfers (B,C,W/C) (FIM): 5 Sit to Lying (QC): 4 Lying-Sitting on Side/Bed(QC): 4 Sit to Stand (QC): 4 Rollin Roll Left to Right (QC): 4 Chair/Eje-ja-Vqsnc Xfer(QC): 4 Car Transfer (QC): 4 Gait (FIM): 2 Distance: 50' Walk 10 feet (QC): 4 Walk 10ft-Uneven Surface(QC): 4 Walk 50ft with 2 Turns (QC): 4 Walk 150 ft (QC): 4 Gait Level of Assist: 4 Gait Assistive Device: Walker Pancho Stairs (FIM): 1 # of Steps: 1 1 Step (curb) (QC): 3 Stairs Level Of Assist: 4 PT Plan Problem List Problem List: Activity Tolerance, Functional Strength, Safety, Balance, Gait, Transfer, Bed Mobility, ROM Treatment/Plan Treatment Plan: Continue Plan of Care Treatment Plan: Bed Mobility, Concurrent Therapy, Education, Functional Activity Ritchie, Functional Strength, Group Therapy, Gait, Safety, Therapeutic Exercise, Transfers Treatment Duration: Nov 12, 2017 Frequency: At least 5 of 7 days/Wk (IRF) Estimated Hrs Per Day: 1.5 hours per day Patient and/or Family Agrees t: Yes Safety Risks/Education Patient Education: Gait Training, Transfer Techniques, Correct Positioning, Safety Issues Teaching Recipient: Patient Teaching Methods: Demonstration, Discussion Response to Teaching: Reinforcement Needed Time/GCodes Time In: 1300 Time Out: 1330 Total Billed Treatment Time: 30 Total Billed Treatment 1 visit FA 10' GT 20' JOSÉ MIGUEL DOOLEY PT Oct 26, 2017 13:32
[2017-10-26 16:00] VITALS: BP 157/77
[2017-10-26] MEDS: KCL 10 MEQ TAB (MICRO K) PO SCH (23:41)
[2017-10-26] MEDS: ATORVASTATIN 20 MG (LIPITOR) TABLET PO SCH (23:41)
[2017-10-27 01:30] VITALS: BP 195/70
[2017-10-27] MEDS: IBUPROFEN 800 MG (MOTRIN) TAB PO PRN ×2 (01:56→23:43)
[2017-10-27] MEDS ORDERED: lisINopril 20 MG (PRINIVIL) TABLET PO ONE (02:00)
[2017-10-27 06:00] VITALS: BP 169/79
[2017-10-27] MEDS: LEVOTHYROXINE 125 MCG (LEVOTHROID) TABLET PO SCH (06:09)
[2017-10-27] MEDS: KCL 20 MEQ TAB (K-DUR) PO SCH (06:09)
--- NOTE | 2017-10-27 07:32 | PM & R (SOAP) Progress Note ---
Subjective This was a face to face visit with the patient. Date Seen by Provider: Oct 27, 2017 Time Seen by Provider: 07:10 Subjective/Events-last exam Patient was seen in her room this AM Case discusse with evening RN re BP being quite elevated last night Meds adjusted by Hospitalist and doing better for HTN control Patient SBA for transfers Objective Physician Exam Last Set of Vital Signs Vital Signs Date Time Temp Pulse Resp B/P (MAP) Pulse Ox O2 Delivery O2 Flow Rate FiO2 10/27/17 06:00 98.6 94 18 169/79 (109) 100 Room Air Capillary Refill : Less Than 3 Seconds I&O Intake and Output 10/27/17 00:00 Intake Total 1140 ml Balance 1140 ml Intake Oral 1140 ml # Voids 7 # Bowel Movements 1 General: Alert, Oriented X3, Cooperative, No Acute Distress HEENT: PERRLA, EOMI, Mucous Memb Moist/[place], Other (Bruise rt spiritism) Neck: Supple, No JVD Lungs: Clear to Auscultation Heart: Regular Rate Abdomen: Normal Bowel Sounds, Soft, No Tenderness Extremities: Other (RT arm in immobilizer) Neuro: Strength at 5/5 X4 Ext, Other ( RT arm in immobilizer rt leg with tenderness rt knee with guarding remainder generalized weakness sensation intact ) Assessment/Plan Assessment and Plan RT humeral neck fracture s/p fall managed with immobilizer RT Knee contusion Rt Orthodoxy contusion healing Poorly controlled HTN better controlled with adjustment in meds to BID regimen DVT Prophylaxis SCDS Constipation treated Hypothyroidism compenasted with replacement Prior colon surgery for CA Plan Continue PT/OT Monitor Blood pressure and adjust meds as needed Next Team Conference 10-31-17 (1) Fracture, humerus closed Co-Morbidities that are continuing to impact the rehab process: (include details ) GURINDER SPAIN MD Oct 27, 2017 07:32
[2017-10-27] MEDS: SENNA W/DOCUSATE (SENOKOT S) TABLET PO SCH ×2 (08:11→21:33)
[2017-10-27] MEDS: BISACODYL 5 MG (DULCOLAX) TABLET PO SCH (08:11)
[2017-10-27 08:29] VITALS: BP 172/77
[2017-10-27] MEDS: FOLIC ACID 1 MG TAB PO SCH (08:30)
[2017-10-27] MEDS: CARBOXYMETHYLCELLULOSE SODIUM OU SCH ×2 (08:30→21:33)
[2017-10-27] MEDS: ASPIRIN E.C. 81 MG (ECOTRIN) TAB PO SCH (08:30)
[2017-10-27] MEDS: DILTIAZEM SR 90 MG (CARDIZEM LA) PO SCH (08:30)
--- NOTE | 2017-10-27 09:49 | Physical Therapy Daily Note ---
PT Daily Note-Current Subjective Patient is very agreeable to participate with PT. No c/o. BP is elevated per RN. Pain Numeric Pain Scale: 0-No Pain Location: No Pain Reported Mental Status Patient Orientation: Normal For Age Transfers Functional [place] Measure 0=Not Assessed/NA 4=Minimal Assistance 1=Total Assistance 5=Supervision or Setup 2=Maximal Assistance 6=Modified [place] 3=Moderate Assistance 7=Complete IndependenceIRFPAI Quality Coding Scale 6 Independent with activity with or without an assistive device 5 Patient requires set up or clean up by helper. Patient completes activity by themselves 4 Supervision or touching assist (CGA). [place] provide cues , steadying assist 3 The helper provides less than half the effort to complete the activity 2 The helper provides more than half the effort to complete the activity 1 Dependent. The helper does all the effort to complete an activity 7 Patient refused to complete or attempt activity 9 The patient did not perform the activity before the current illness or injury 88 Not attempted due to Medical conditions or safety concerns Transfers (B, C, W/C) (FIM): 4 Scootin Supine to/from Sit: 5 Sit to/from Stand: 4 Sit to Lying (QC): 4 Sit to Stand (QC): 4 Chair/Juo-np-Zkbsn Xfer(QC): 4 Bed to/from Chair: 4 CGA for safety/assisted patient with toileting with toilet transfers and assist to pull up pants on this date. Sit to stand transfers x 4 sets with SBA to CGA for safety. Weight Bearing Right Lower Extremity: Right Weight Bearing/Tolerated Gait Training Does the Patient Walk?: Yes Gait (FIM): 4 Distance (FIM): 3=150 ft Distance: 150' x 2 Walk 10 feet (QC): 4 Walk 50 ft with 2 Turns(QC): 4 Walk 150 ft (QC): 4 Gait Level of Assist: 4 Gait Assistive Device: Walker Pancho 3 episodes of deviation to left with self correct. Slow, decreased gait sequence with kyphotic posture. Assessment Patient is up in recliner with needs met. Patient is very motivated with progress and is very alert and happy on this date. PT Short Term Goals Short Term Goals Time Frame: Oct 29, 2017 Gait (FIM): 1 Gait Distance Comment: 40' Gait Level of Assist: 4 Gait Assistive Device: Walker Pancho PT Network Support Specialist Goals Network Support Specialist Goals PT Network Support Specialist Goals Time Frame: Nov 12, 2017 Transfers (B,C,W/C) (FIM): 5 Sit to Lying (QC): 4 Lying-Sitting on Side/Bed(QC): 4 Sit to Stand (QC): 4 Rollin Roll Left to Right (QC): 4 Chair/Qdw-[id number]-Dpdcv Xfer(QC): 4 Car Transfer (QC): 4 Gait (FIM): 2 Distance: 50' Walk 10 feet (QC): 4 Walk 10ft-Uneven Surface(QC): 4 Walk 50ft with 2 Turns (QC): 4 Walk 150 ft (QC): 4 Gait Level of Assist: 4 Gait Assistive Device: Walker Pancho Stairs (FIM): 1 # of Steps: 1 1 Step (curb) (QC): 3 Stairs Level Of Assist: 4 PT Plan Treatment/Plan Treatment Plan: Continue Plan of Care Treatment Plan: Bed Mobility, Concurrent Therapy, Education, Functional Activity Ritchie, Functional Strength, Group Therapy, Gait, Safety, Therapeutic Exercise, Transfers Treatment Duration: Nov 12, 2017 Frequency: At least 5 of 7 days/Wk (IRF) Estimated Hrs Per Day: 1.5 hours per day Patient and/or Family Agrees t: Yes Time/GCodes Time In: 850 Time Out: 815 Total Billed Treatment Time: 25 Total Billed Treatment 1 visit FA x 2 25 min HUAN MENDIOLA PT Oct 27, 2017 09:49
[2017-10-27] MEDS ORDERED: cloNIDine 0.1 MG PATCH (CATAPRES TTS) TDSY TD SCH (11:15)
[2017-10-27] MEDS: hydrALAZINE (APRESOLINE) 25 MG TAB PO SCH ×3 (11:50→21:31)
--- NOTE | 2017-10-27 12:01 | Progress Note-Hospitalist ---
Subjective HPI/CC On Admission Date Seen by Provider: Oct 27, 2017 Time Seen by Provider: 11:00 Subjective/Events-last exam RN called me through the night with blood pressure of 190 systolic Noted trend of severe elevation over the last several days since hospital admission Reports has labile hypertension Increase clonidine patch to 0.2 and added hydralazine Having difficulties since her brother just Has a lot of anxiety Has no self-confidence in her ability to get around without falling Review of Systems General: Malaise Musculoskeletal: arm pain Objective Exam Vital Signs Vital Signs Date Time Temp Pulse Resp B/P (MAP) Pulse Ox O2 Delivery O2 Flow Rate FiO2 10/27/17 08:29 88 172/77 (108) 10/27/17 06:00 98.6 18 100 Room Air Capillary Refill : Less Than 3 Seconds General Appearance: No Apparent Distress, WD/WN, Chronically ill, Thin Respiratory: Lungs Clear, Normal Breath Sounds Cardiovascular: Regular Rate, Rhythm, No Edema Neurologic/Psychiatric: Alert, Oriented x3, No Motor/Sensory Deficits, Depressed Affect Results/Procedures Lab Patient resulted labs reviewed. Assessment/Plan Assessment and Plan Assess & Plan/Chief Complaint Assessment: Debility HTN OOC Plan: Increase Clonidine patch Hydralazine Diagnosis/Problems Diagnosis/Problems (1) Hypertension, malignant Status: Chronic (2) Debility Status: Acute (3) Frail elderly Status: Chronic (4) Anxiety Status: Chronic (5) Grief Status: Acute (6) Fracture, humerus closed Status: Acute Qualifiers: Encounter type: subsequent encounter Humerus Location: proximal Fracture alignment: nondisplaced Laterality: right Fracture healing: with delayed healing Clinical Quality Measures DVT/VTE Risk/Contraindication: Risk Factor Score Per Nursin RFS Level Per Nursing on Admit: 3=High ARLETH GONZALEZ DO Oct 27, 2017 12:01
[2017-10-27 18:41] VITALS: BP 164/69
[2017-10-27] MEDS: KCL 10 MEQ TAB (MICRO K) PO SCH (21:32)
[2017-10-27] MEDS: lisINopril 40 MG (PRINIVIL) TABLET PO SCH (21:32)
[2017-10-27] MEDS: ATORVASTATIN 20 MG (LIPITOR) TABLET PO SCH (21:33)
[2017-10-27] MEDS: lisINopril 5 MG (PRINIVIL) TABLET PO SCH (21:34)
[2017-10-28 06:00] VITALS: BP 172/84
[2017-10-28] MEDS: LEVOTHYROXINE 125 MCG (LEVOTHROID) TABLET PO SCH (06:13)
[2017-10-28] MEDS: KCL 20 MEQ TAB (K-DUR) PO SCH (06:13)
[2017-10-28] MEDS: hydrALAZINE (APRESOLINE) 25 MG TAB PO SCH ×3 (06:13→20:52)
[2017-10-28 08:52] VITALS: BP 175/76
[2017-10-28] MEDS: DILTIAZEM SR 90 MG (CARDIZEM LA) PO SCH (08:53)
[2017-10-28] MEDS: SENNA W/DOCUSATE (SENOKOT S) TABLET PO SCH ×2 (08:53→20:52)
[2017-10-28] MEDS: ASPIRIN E.C. 81 MG (ECOTRIN) TAB PO SCH (08:53)
[2017-10-28] MEDS: FOLIC ACID 1 MG TAB PO SCH (08:53)
[2017-10-28] MEDS: BISACODYL 5 MG (DULCOLAX) TABLET PO SCH (08:54)
[2017-10-28] MEDS: CARBOXYMETHYLCELLULOSE SODIUM OU SCH ×2 (08:55→23:12)
[2017-10-28 14:18] VITALS: BP 147/71
[2017-10-28 18:32] VITALS: BP 152/71
[2017-10-28] MEDS: ATORVASTATIN 20 MG (LIPITOR) TABLET PO SCH (20:52)
[2017-10-28] MEDS: lisINopril 40 MG (PRINIVIL) TABLET PO SCH (20:52)
[2017-10-28] MEDS: KCL 10 MEQ TAB (MICRO K) PO SCH (20:52)
[2017-10-28] MEDS: lisINopril 5 MG (PRINIVIL) TABLET PO SCH (20:52)
[2017-10-29 05:10] VITALS: BP 165/75
[2017-10-29] MEDS: hydrALAZINE (APRESOLINE) 25 MG TAB PO SCH ×3 (06:18→21:06)
[2017-10-29] MEDS: KCL 20 MEQ TAB (K-DUR) PO SCH (06:18)
[2017-10-29] MEDS: LEVOTHYROXINE 125 MCG (LEVOTHROID) TABLET PO SCH (06:18)
--- NOTE | 2017-10-29 08:22 | Progress Note (SOAP) ---
Subjective Time Seen by Provider: 08:20 Subjective/Events-last exam Patient states she's not sleeping at night. Patient is improving. Patient has better gait. Patient is a work in progress Objective Exam Vital Signs Date Time Temp Pulse Resp B/P (MAP) Pulse Ox O2 Delivery O2 Flow Rate FiO2 10/29/17 05:10 98.2 108 20 165/75 (105) 97 Room Air 10/28/17 21:05 Room Air 10/28/17 18:32 98.7 95 18 152/71 (98) 84 Room Air 10/28/17 14:18 147/71 (96) 84 10/28/17 09:04 Room Air 10/28/17 08:52 175/76 (109) 98 I & O 10/29/17 07:00 Intake Total 1300 ml Balance 1300 ml Capillary Refill : Less Than 3 Seconds General Appearance: No Apparent Distress, Thin Assessment/Plan Assessment/Plan Assess & Plan/Chief Complaint right knee effusion. Fall. Debility. Fracture of the humerus. Hypertension. history of colon cancer. Patient lives alone area . . Right knee infusion. fall. Fractured humerus. Hypertension. History of colon cancer. Patient's brother just . Hypertension. . 10/26/17. Right knee effusion. Fractured humerus. Hypertension. History of colon cancer. 2. Lisin[address]. Consult Dr. Isidro orthopedics. . 10/29/17 right knee effusion. Fractured humerus. Hypertension. History of colon cancer. Insomnia put on melatonin Clinical Quality Measures DVT/VTE Risk/Contraindication: Risk Factor Score Per Nursin RFS Level Per Nursing on Admit: 3=High DAVID JONES DO Oct 29, 2017 08:22
[2017-10-29 09:35] VITALS: BP 153/79
[2017-10-29] MEDS: FOLIC ACID 1 MG TAB PO SCH (09:40)
[2017-10-29] MEDS: DILTIAZEM SR 90 MG (CARDIZEM LA) PO SCH (09:40)
[2017-10-29] MEDS: ASPIRIN E.C. 81 MG (ECOTRIN) TAB PO SCH (09:40)
[2017-10-29] MEDS: BISACODYL 5 MG (DULCOLAX) TABLET PO SCH (09:40)
[2017-10-29] MEDS: CARBOXYMETHYLCELLULOSE SODIUM OU SCH ×2 (09:47→21:07)
[2017-10-29] MEDS: SENNA W/DOCUSATE (SENOKOT S) TABLET PO SCH ×2 (09:52→21:06)
--- NOTE | 2017-10-29 10:45 | Physical Therapy Daily Note ---
PT Daily Note-Current Subjective Pt. agrees to Rx. Pt. speaks very low in tone and has difficulty staying on subject and telling a story in sequence. States she has some dizziness with change of position as well as some pain in right arm at 4/10 Pain Numeric Pain Scale: 4 Location: Right Location Body Site: Shoulder Pain Description: Ache Mental Status Patient Orientation: Person, Place, Time Attachments: Other-See Comments (right shoulder sling) Transfers Functional [place] Measure 0=Not Assessed/NA 4=Minimal Assistance 1=Total Assistance 5=Supervision or Setup 2=Maximal Assistance 6=Modified [place] 3=Moderate Assistance 7=Complete IndependenceIRFPAI Quality Coding Scale 6 Independent with activity with or without an assistive device 5 Patient requires set up or clean up by helper. Patient completes activity by themselves 4 Supervision or touching assist (CGA). [place] provide cues , steadying assist 3 The helper provides less than half the effort to complete the activity 2 The helper provides more than half the effort to complete the activity 1 Dependent. The helper does all the effort to complete an activity 7 Patient refused to complete or attempt activity 9 The patient did not perform the activity before the current illness or injury 88 Not attempted due to Medical conditions or safety concerns Transfers (B, C, W/C) (FIM): 4 Scootin Rollin Supine to/from Sit: 4 Sit to/from Stand: 5 Weight Bearing Right Lower Extremity: Right Weight Bearing/Tolerated Gait Training Does the Patient Walk?: Yes Gait (FIM): 4 Distance (FIM): 3=150 ft Gait Level of Assist: 4 Gait Persons Needed: 1 Gait Assistive Device: Cane Single Point pt. used pancho walker and hurry cane both for gait training as she was very awkward with pancho walker , trialed hurry SPC Exercises Supine Ex: Bridging, Ankle pumps, Quad Set, Rolling, Glut sets, Heel Slides, Short Arc Quads, Scooting, Hip abd/add Supine Reps: 10 Seated Therapy Exercises: Ankle pumps, Sit to stand, Long arc quads, Hip flexion Seated Reps: 15 NuStep Minutes: 10 NuStep Workload: 3 Treatments toileted managing pants and cleaning SBA to Mod I Assessment Current Status: Good Progress pt. is very slow with all activity and stops to talk nearly in circles PT Short Term Goals Short Term Goals Time Frame: Oct 29, 2017 Gait (FIM): 1 Gait Distance Comment: 40' Gait Level of Assist: 4 Gait Assistive Device: Walker Pancho PT Real Estate Rental Agent Goals Real Estate Rental Agent Goals PT Real Estate Rental Agent Goals Time Frame: Nov 12, 2017 Transfers (B,C,W/C) (FIM): 5 Sit to Lying (QC): 4 Lying-Sitting on Side/Bed(QC): 4 Sit to Stand (QC): 4 Rollin Roll Left to Right (QC): 4 Chair/Ofh-ui-Kybtf Xfer(QC): 4 Car Transfer (QC): 4 Gait (FIM): 2 Distance: 50' Walk 10 feet (QC): 4 Walk 10ft-Uneven Surface(QC): 4 Walk 50ft with 2 Turns (QC): 4 Walk 150 ft (QC): 4 Gait Level of Assist: 4 Gait Assistive Device: Walker Pancho Stairs (FIM): 1 # of Steps: 1 1 Step (curb) (QC): 3 Stairs Level Of Assist: 4 PT Plan Treatment/Plan Treatment Plan: Continue Plan of Care Treatment Plan: Bed Mobility, Concurrent Therapy, Education, Functional Activity Ritchie, Functional Strength, Group Therapy, Gait, Safety, Therapeutic Exercise, Transfers Treatment Duration: Nov 12, 2017 Frequency: At least 5 of 7 days/Wk (IRF) Estimated Hrs Per Day: 1.5 hours per day Patient and/or Family Agrees t: Yes Safety Risks/Education Patient Education: Gait Training, Transfer Techniques, Correct Positioning, Safety Issues Teaching Recipient: Patient Teaching Methods: Demonstration, Discussion Response to Teaching: Verbalize Understanding, Return Demonstration, Reinforcement Needed Time/GCodes Time In: 915 Time Out: 1045 Total Billed Treatment Time: 90 Total Billed Treatment 1,GT25m,FA30m,EX35m G Codes Necessary: KODI Greene NOUGAT CANDY MAKER HELPER Oct 29, 2017 10:45
--- NOTE | 2017-10-29 13:25 | PM & R (SOAP) Progress Note ---
Subjective This was a face to face visit with the patient. Date Seen by Provider: Oct 29, 2017 Time Seen by Provider: 11:55 Subjective/Events-last exam Patient was seen in her room this AM Patient min assist for transfers Blood pressure better controlled with adjustment in meds ortho to review Xrays of humerus Patient remains in immobilizer Objective Physician Exam Last Set of Vital Signs Vital Signs Date Time Temp Pulse Resp B/P (MAP) Pulse Ox O2 Delivery O2 Flow Rate FiO2 10/29/17 09:35 89 20 153/79 (103) 98 Room Air 10/29/17 05:10 98.2 Capillary Refill : Less Than 3 Seconds I&O Intake and Output 10/29/17 00:00 Intake Total 1200 ml Balance 1200 ml Intake Oral 1200 ml # Voids 9 # Bowel Movements 1 General: Alert, Oriented X3, Cooperative, No Acute Distress HEENT: PERRLA, EOMI, Mucous Memb Moist/[place], Other (Bruise rt cheondoism) Neck: Supple, No JVD Lungs: Clear to Auscultation Heart: Regular Rate Abdomen: Normal Bowel Sounds, Soft, No Tenderness Extremities: Other (RT arm in immobilizer) Neuro: Strength at 5/5 X4 Ext, Other ( RT arm in immobilizer rt leg with tenderness rt knee with guarding remainder generalized weakness sensation intact ) Assessment/Plan Assessment and Plan RT humerus neck fracture s/p fall managed with immobilizer RT Knee contusion RT Caodaism contusion healed HTN better controlled DVT prophylaxis better controlled Constipation treated Prior Colon surgery for CA Plan Continue PT/OT Next Team Conference 10-31-17 Monitor Blood pressure and adjust meds as needed (1) Fracture, humerus closed Qualifiers: Status: Acute Co-Morbidities that are continuing to impact the rehab process: (include details ) GURINDER SPAIN MD Oct 29, 2017 13:25
--- NOTE | 2017-10-29 13:56 | Occupational Ther Daily Note ---
OT Current Status-Daily Note Subjective Pt alert, lying in bed. Pt stated that her bottom was hurting and wanted to get up. Agrees to therapy. Pt c/o pain and stiffness, did not rate. Pt continues to state that she can't do anything with her left hand. Mental Status/Objective Patient Orientation: Person, Place, Time, Situation Functional [place] Measure 0=Not Assessed/NA 4=Minimal Assistance 1=Total Assistance 5=Supervision or Setup 2=Maximal Assistance 6=Modified [place] 3=Moderate Assistance 7=Complete [place] ADL-Treatment Functional [place] Measure 0=Not Assessed/NA 4=Minimal Assistance 1=Total Assistance 5=Supervision or Setup 2=Maximal Assistance 6=Modified [place] 3=Moderate Assistance 7=Complete IndependenceIRFPAI Quality Coding Scale 6 Independent with activity with or without an assistive device 5 Patient requires set up or clean up by helper. Patient completes activity by themselves 4 Supervision or touching assist (CGA). [place] provide cues , steadying assist 3 The helper provides less than half the effort to complete the activity 2 The helper provides more than half the effort to complete the activity 1 Dependent. The helper does all the effort to complete an activity 7 Patient refused to complete or attempt activity 9 The patient did not perform the activity before the current illness or injury 88 Not attempted due to Medical conditions or safety concerns Grooming (FIM): 5 (SBA standing at sink. Completes oral care, denture care and hair care by self. Pt uses B hands to open denture package.) Oral Hygiene (QC): 4 Bathing (FIM): 5 (SBA using shower bench, grabbars and hand held shower. Pt takes increased time completing ADLs. Assist to turn off/on water. Encouragement needed for pt to complete tasks by self and use R hand to assist with ADLs.) Bathing Location: L Arm, R Arm, L Upper Leg, R Upper Leg, L Lower Leg ( including foot), R Lower Leg (including foot), Chest, Abdomen, Buttocks, Perineal Area Shower/Bathe Self (QC): 4 Upper Body (FIM): 4 (Min A to don shirt. Pt apprehensive about using R hand to assist. Encouragement to complete. Assist to pull across back to thread L UE into sleeve.) Upper Body Dressing (QC): 3 Lower Body Dressing (FIM): 5 (SBA using FWW to hike pants over hips. Pt is able to complete lower body dressing.) Lower Body Dressing (QC): 4 On/Off Footwear (QC): 5 Toileting (FIM): 5 (Pt able to manipulate clothing and hygiene with SBA.) Toileting Hygiene (QC): 4 Toilet/Commode Transfer (FIM): 5 (SBA using FWW, BSC and grabbars.) Toilet Transfer (QC): 4 Shower Transfer(FIM): 5 (Close SBA using grabbars and shower bench.) Pt takes increased time to complete all tasks. OT Short Term Goals Short Term Goals Time Frame: Oct 29, 2017 Eating(FIM): 5 Toilet/Commode Transfer(FIM): 4 Additional Short Term Goals: 1-Demonstrate ADL Tasks, 2-Verbalize Understanding , 3-ImproveStrength/[place]itch[place] 1=Demonstrate adherence to instructed precautions during ADL tasks. 2=Patient will verbalize/demonstrate understanding of assistive devices/ modifications for ADL. 3=Patient will improve strength/tolerance for activity to enable patient to perform ADL's. OT Academic Manager Goals Academic Manager Goals Time Frame: Nov 09, 2017 Eating (FIM): 5 Eating (QC): 5 Groomin Oral Hygiene (QC): 5 Bathing(FIM): 4 Shower/Bathe Self (QC): 3 Upper Body Dressing(FIM): 5 Upper Body Dressing (QC): 5 Lower Body Dressing(FIM): 5 Lower Body Dressing (QC): 5 On/Off Footwear (QC): 5 Toileting(FIM): 6 Toileting Hygiene (QC): 6 Toilet/Commode Transfer(FIM): 6 Toilet/Commode Transfer (QC): 6 Shower Transfer(FIM): 5 Additional Goals: 1-Demonstrate ADL Tasks, 2-Verbalize Understanding, 3- ImproveStrength/Ritchie 1=Demonstrate adherence to instructed precautions during ADL tasks. 2=Patient will verbalize/demonstrate understanding of assistive devices/ modifications for ADL. 3=Patient will improve strength/tolerance for activity to enable patient to perform ADL's. OT Education/Plan Problem List/Assessment Pt would benefit from skilled OT to increase her independence in basic self care to allow her to safely return home wit family support Discharge Recommendations Plan/Recommendations: Continue POC Treatment Plan/Plan of Care Patient would benefit from OT for education, treatment and training to promote independence in ADL's, mobility, safety and/or upper extremity function for ADL' s. Plan of Care: ADL Retraining, Functional Mobility, Group Exercise/Act as Ind ( education, exercise, act tolerance, functional mobility, R UE funct use, socialization), UE Funct Exercise/Act, UE Neuromus Re-Ed/Coord Treatment Duration: Nov 09, 2017 Frequency: At least 5 of 7 days/Wk (IRF) Estimated Hrs Per Day: 1.5 hours per day Agreement: Yes Rehab Potential: Fair Time/GCodes Start Time: 07:00 Stop Time: 08:30 Total Time Billed (hr/min): 90 Billed Treatment Time 1 visit-ADL 6 (90 min) KI MORENO Oct 29, 2017 13:56
[2017-10-29] MEDS ORDERED: MELATONIN 3 MG TABLET PO PRN (14:30)
[2017-10-29 16:21] VITALS: BP 156/75
[2017-10-29] MEDS: ATORVASTATIN 20 MG (LIPITOR) TABLET PO SCH (21:06)
[2017-10-29] MEDS: lisINopril 40 MG (PRINIVIL) TABLET PO SCH (21:06)
[2017-10-29] MEDS: KCL 10 MEQ TAB (MICRO K) PO SCH (21:06)
[2017-10-29] MEDS: lisINopril 5 MG (PRINIVIL) TABLET PO SCH (21:06)
[2017-10-29] MEDS: MELATONIN 3 MG TABLET PO PRN (21:59)
[2017-10-30 05:11] VITALS: BP 132/68
[2017-10-30] MEDS: LEVOTHYROXINE 125 MCG (LEVOTHROID) TABLET PO SCH (06:08)
[2017-10-30] MEDS: hydrALAZINE (APRESOLINE) 25 MG TAB PO SCH ×3 (06:08→21:21)
[2017-10-30] MEDS ORDERED: KCL 20 MEQ TAB (K-DUR) PO SCH (08:00)
--- NOTE | 2017-10-30 08:28 | Occupational Ther Daily Note ---
OT Current Status-Daily Note Subjective Pt alert, sitting in recliner. Pt agrees to therapy. No c/o pain at this time. Mental Status/Objective Patient Orientation: Person, Place, Time, Situation Functional [place] Measure 0=Not Assessed/NA 4=Minimal Assistance 1=Total Assistance 5=Supervision or Setup 2=Maximal Assistance 6=Modified [place] 3=Moderate Assistance 7=Complete [place] ADL-Treatment Pt declined bathing and changing clothing. Pt did doff socks and don shoes by self. Functional [place] Measure 0=Not Assessed/NA 4=Minimal Assistance 1=Total Assistance 5=Supervision or Setup 2=Maximal Assistance 6=Modified [place] 3=Moderate Assistance 7=Complete IndependenceIRFPAI Quality Coding Scale 6 Independent with activity with or without an assistive device 5 Patient requires set up or clean up by helper. Patient completes activity by themselves 4 Supervision or touching assist (CGA). [place] provide cues , steadying assist 3 The helper provides less than half the effort to complete the activity 2 The helper provides more than half the effort to complete the activity 1 Dependent. The helper does all the effort to complete an activity 7 Patient refused to complete or attempt activity 9 The patient did not perform the activity before the current illness or injury 88 Not attempted due to Medical conditions or safety concerns Eating (FIM): 5 (Pt was assisted by dietary setting up food by opening containers and packages. Pt able to use regular utensils to feed self and use R hand to assist with holding containers.) Eating (QC): 5 Grooming (FIM): 5 (Supervision standing at sink, stabilizing self with counter top, to complete grooming.) Oral Hygiene (QC): 4 On/Off Footwear (QC): 6 Other Treatment Per nrsg report from Dr. Isidro's PA, pt is able to complete Codman's or dangling of R UE. Movement of R elbow, wrist and hand are allowed. Initiated Codman's with pt. Pt having difficulty with understanding technique of Codman' s. Will continue education and exercise during therapy session until pt is able to demonstrate understanding. Pt completed arm bike for 15 min at 15 philippe resistance with L UE to increase strength and activity tolerance for daily functional tasks, no breaks. Pt then completed B UE elbow flex/ext against gravity, wrist flexion/extension with 1/2 pound wt, 1 set 10 reps. In- hand manipulation completed with R hand to increase dexterity and AROM. Pt then ambulated back to room and sat in recliner after therapy. Call light/ phone in reach. All needs met in room. OT Short Term Goals Short Term Goals Time Frame: Oct 29, 2017 Eating(FIM): 5 Toilet/Commode Transfer(FIM): 4 Additional Short Term Goals: 1-Demonstrate ADL Tasks, 2-Verbalize Understanding , 3-ImproveStrength/Ritchie 1=Demonstrate adherence to instructed precautions during ADL tasks. 2=Patient will verbalize/demonstrate understanding of assistive devices/ modifications for ADL. 3=Patient will improve strength/tolerance for activity to enable patient to perform ADL's. OT Manufacturing Accountant Goals Senior Care Goals Time Frame: Nov 09, 2017 Eating (FIM): 5 Eating (QC): 5 Groomin Oral Hygiene (QC): 5 Bathing(FIM): 4 Shower/Bathe Self (QC): 3 Upper Body Dressing(FIM): 5 Upper Body Dressing (QC): 5 Lower Body Dressing(FIM): 5 Lower Body Dressing (QC): 5 On/Off Footwear (QC): 5 Toileting(FIM): 6 Toileting Hygiene (QC): 6 Toilet/Commode Transfer(FIM): 6 Toilet/Commode Transfer (QC): 6 Shower Transfer(FIM): 5 Additional Goals: 1-Demonstrate ADL Tasks, 2-Verbalize Understanding, 3- ImproveStrength/Ritchie 1=Demonstrate adherence to instructed precautions during ADL tasks. 2=Patient will verbalize/demonstrate understanding of assistive devices/ modifications for ADL. 3=Patient will improve strength/tolerance for activity to enable patient to perform ADL's. OT Education/Plan Problem List/Assessment Pt would benefit from skilled OT to increase her independence in basic self care to allow her to safely return home wit family support Discharge Recommendations Plan/Recommendations: Continue POC Treatment Plan/Plan of Care Patient would benefit from OT for education, treatment and training to promote independence in ADL's, mobility, safety and/or upper extremity function for ADL' s. Plan of Care: ADL Retraining, Functional Mobility, Group Exercise/Act as Ind ( education, exercise, act tolerance, functional mobility, R UE funct use, socialization), UE Funct Exercise/Act, UE Neuromus Re-Ed/Coord Treatment Duration: Nov 09, 2017 Frequency: At least 5 of 7 days/Wk (IRF) Estimated Hrs Per Day: 1.5 hours per day Agreement: Yes Rehab Potential: Fair Time/GCodes Start Time: 07:00 Stop Time: 08:30 Total Time Billed (hr/min): 90 Billed Treatment Time 1 visit-ADL 3 (45 min) EX 3 (45 min) KI MORENO Oct 30, 2017 08:28
--- NOTE | 2017-10-30 08:37 | Progress Note (SOAP) ---
Subjective Time Seen by Provider: 08:36 Subjective/Events-last exam Patient feel she is doing better. Patient feels she is improving. Right knee effusion. Debility. Humerus fracture Objective Exam Vital Signs Date Time Temp Pulse Resp B/P (MAP) Pulse Ox O2 Delivery O2 Flow Rate FiO2 10/30/17 05:11 98.4 81 16 132/68 (89) 97 Room Air 10/29/17 21:39 Room Air 10/29/17 20:50 82 10/29/17 16:21 98.8 104 14 156/75 (102) 97 Room Air 10/29/17 09:35 89 20 153/79 (103) 98 Room Air 10/29/17 08:52 Room Air I & O 10/30/17 07:00 Intake Total 1575 ml Balance 1575 ml Capillary Refill : Less Than 3 Seconds General Appearance: No Apparent Distress, Thin HEENT: Normal ENT Inspection Neck: Full Range of Motion, Normal Inspection Respiratory: Lungs Clear, No Accessory Muscle Use, No Respiratory Distress Cardiovascular: Regular Rate, Rhythm, No Murmur Assessment/Plan Assessment/Plan Assess & Plan/Chief Complaint right knee effusion. Fall. Debility. Fracture of the humerus. Hypertension. history of colon cancer. Patient lives alone area . . Right knee infusion. fall. Fractured humerus. Hypertension. History of colon cancer. Patient's brother just . Hypertension. . 10/26/17. Right knee effusion. Fractured humerus. Hypertension. History of colon cancer. 2. Lisinopril. Consult Dr. Isidro orthopedics. . 10/29/17 right knee effusion. Fractured humerus. Hypertension. History of colon cancer. Insomnia put on melatonin. . 10/30/17. Right knee effusion. Fractured humerus right. Hypertension. Patient reported no problems Clinical Quality Measures DVT/VTE Risk/Contraindication: Risk Factor Score Per Nursin RFS Level Per Nursing on Admit: 3=High DAVID JONES DO Oct 30, 2017 08:37
[2017-10-30] MEDS: FOLIC ACID 1 MG TAB PO SCH (08:50)
[2017-10-30] MEDS: DILTIAZEM SR 90 MG (CARDIZEM LA) PO SCH (08:50)
[2017-10-30] MEDS: SENNA W/DOCUSATE (SENOKOT S) TABLET PO SCH ×2 (08:50→21:22)
[2017-10-30] MEDS: ASPIRIN E.C. 81 MG (ECOTRIN) TAB PO SCH (08:51)
[2017-10-30] MEDS: CARBOXYMETHYLCELLULOSE SODIUM OU SCH ×2 (08:52→21:21)
[2017-10-30] MEDS: BISACODYL 5 MG (DULCOLAX) TABLET PO SCH (08:53)
--- NOTE | 2017-10-30 12:37 | Physical Therapy Daily Note ---
PT Daily Note-Current Subjective Pt laying Supine in bed upon arrival. Pt agrees to PT. Pain Numeric Pain Scale: 5-Moderate Pain Location: Right Location Body Site: Shoulder Pain Description: Ache Mental Status Patient Orientation: Person, Place, Time, Situation Attachments: Other-See Comments (Sling for R UE) Transfers Functional [place] Measure 0=Not Assessed/NA 4=Minimal Assistance 1=Total Assistance 5=Supervision or Setup 2=Maximal Assistance 6=Modified [place] 3=Moderate Assistance 7=Complete IndependenceIRFPAI Quality Coding Scale 6 Independent with activity with or without an assistive device 5 Patient requires set up or clean up by helper. Patient completes activity by themselves 4 Supervision or touching assist (CGA). [place] provide cues , steadying assist 3 The helper provides less than half the effort to complete the activity 2 The helper provides more than half the effort to complete the activity 1 Dependent. The helper does all the effort to complete an activity 7 Patient refused to complete or attempt activity 9 The patient did not perform the activity before the current illness or injury 88 Not attempted due to Medical conditions or safety concerns Scootin Rollin Roll Left to Right (QC): 4 Supine to/from Sit: 4 Sit to/from Stand: 5 Sit to Stand (QC): 5 Weight Bearing Right Lower Extremity: Right Weight Bearing/Tolerated Gait Training Does the Patient Walk?: Yes Distance (FIM): 3=150 ft Distance: 150' Walk 10 feet (QC): 5 Walk 50 ft with 2 Turns(QC): 5 Walk 150 ft (QC): 5 Gait Level of Assist: 5 Gait Persons Needed: 1 Gait Assistive Device: Cane Single Point Wheelchair Training Does the Pt Use a Wheelchair?: No Exercises Supine Ex: Ankle pumps, Quad Set, Heel Slides, Straight leg raise, Hip abd/add Supine Reps: 15 Seated Therapy Exercises: Ankle pumps, Long arc quads, Hip flexion, Kicking activity NuStep Minutes: 15 NuStep Workload: 3 Treatments Pt completes Supine Ex in bed then transfers from Supine to EOB at MARKETING PROFESSIONAL, followed by EOB to standing using SPC at SBA. Pt ambulates using SPC at close SBA. Pt uses NuStep for 15m at WL 3 then returns to room to use restroom. Pt rests in recliner propped with pillows, all needs met. Assessment Current Status: Good Progress Pt is very cautious & anxious during tx. PT Short Term Goals Short Term Goals Time Frame: Oct 29, 2017 Gait (FIM): 1 Gait Distance Comment: 40' Gait Level of Assist: 4 Gait Assistive Device: Walker Pancho PT Nursing Home Goals Nursing Home Goals PT Scrubbing Machine Operator Goals Time Frame: Nov 12, 2017 Transfers (B,C,W/C) (FIM): 5 Sit to Lying (QC): 4 Lying-Sitting on Side/Bed(QC): 4 Sit to Stand (QC): 4 Rollin Roll Left to Right (QC): 4 Chair/Myt-ni-Wnyoz Xfer(QC): 4 Car Transfer (QC): 4 Gait (FIM): 2 Distance: 50' Walk 10 feet (QC): 4 Walk 10ft-Uneven Surface(QC): 4 Walk 50ft with 2 Turns (QC): 4 Walk 150 ft (QC): 4 Gait Level of Assist: 4 Gait Assistive Device: Walker Pancho Stairs (FIM): 1 # of Steps: 1 1 Step (curb) (QC): 3 Stairs Level Of Assist: 4 PT Plan Problem List Problem List: Activity Tolerance, Functional Strength, Gait Treatment/Plan Treatment Plan: Continue Plan of Care Treatment Plan: Bed Mobility, Concurrent Therapy, Education, Functional Activity Ritchie, Functional Strength, Group Therapy, Gait, Safety, Therapeutic Exercise, Transfers Treatment Duration: Nov 12, 2017 Frequency: At least 5 of 7 days/Wk (IRF) Estimated Hrs Per Day: 1.5 hours per day Patient and/or Family Agrees t: Yes Safety Risks/Education Patient Education: Gait Training, Transfer Techniques, Correct Positioning, Safety Issues Teaching Recipient: Patient Teaching Methods: Discussion Response to Teaching: Verbalize Understanding Time/GCodes Time In: 1100 Time Out: 1200 Total Billed Treatment Time: 60 Total Billed Treatment 1, EX x2 (30m), Gt (15m) & FA (15m) G Codes Necessary: NANCY Lubin MYCOLOGY TEACHER Oct 30, 2017 12:37
--- NOTE | 2017-10-30 15:14 | Physical Therapy Daily Note ---
PT Daily Note-Current Subjective Patient agrees to PT. Pain Numeric Pain Scale: 0-No Pain Location: No Pain Reported Mental Status Patient Orientation: Normal For Age Transfers Functional [place] Measure 0=Not Assessed/NA 4=Minimal Assistance 1=Total Assistance 5=Supervision or Setup 2=Maximal Assistance 6=Modified [place] 3=Moderate Assistance 7=Complete IndependenceIRFPAI Quality Coding Scale 6 Independent with activity with or without an assistive device 5 Patient requires set up or clean up by helper. Patient completes activity by themselves 4 Supervision or touching assist (CGA). [place] provide cues , steadying assist 3 The helper provides less than half the effort to complete the activity 2 The helper provides more than half the effort to complete the activity 1 Dependent. The helper does all the effort to complete an activity 7 Patient refused to complete or attempt activity 9 The patient did not perform the activity before the current illness or injury 88 Not attempted due to Medical conditions or safety concerns Transfers (B, C, W/C) (FIM): 5 Scootin Sit to/from Stand: 5 Sit to Stand (QC): 5 Weight Bearing Right Lower Extremity: Right Weight Bearing/Tolerated Gait Training Does the Patient Walk?: Yes Gait (FIM): 5 Distance (FIM): 3=150 ft Distance: 225' x 4 Walk 10 feet (QC): 5 Walk 50 ft with 2 Turns(QC): 5 Walk 150 ft (QC): 5 Gait Level of Assist: 5 Gait Assistive Device: Cane Single Point slow, steady Stair Training Stair Training: Handrails/: 1 handrail Stairs (FIM): 5 #of Steps: 8 1 Step (curb) (QC): 5 4 Steps (QC): 5 Stairs: Pattern: Reciprocal Level of Assist: 5 Assessment Patient tolerated treatment well and remains up in recliner with needs met. PT Short Term Goals Short Term Goals Time Frame: Oct 29, 2017 Gait (FIM): 1 Gait Distance Comment: 40' Gait Level of Assist: 4 Gait Assistive Device: Walker Pancho PT [facility] Goals Pharmacists Goals PT Pharmacists Goals Time Frame: Nov 12, 2017 Transfers (B,C,W/C) (FIM): 5 Sit to Lying (QC): 4 Lying-Sitting on Side/Bed(QC): 4 Sit to Stand (QC): 4 Rollin Roll Left to Right (QC): 4 Chair/Mdw-ep-Ajggm Xfer(QC): 4 Car Transfer (QC): 4 Gait (FIM): 2 Distance: 50' Walk 10 feet (QC): 4 Walk 10ft-Uneven Surface(QC): 4 Walk 50ft with 2 Turns (QC): 4 Walk 150 ft (QC): 4 Gait Level of Assist: 4 Gait Assistive Device: Walker Pancho Stairs (FIM): 1 # of Steps: 1 1 Step (curb) (QC): 3 Stairs Level Of Assist: 4 PT Plan Treatment/Plan Treatment Plan: Continue Plan of Care Treatment Plan: Bed Mobility, Concurrent Therapy, Education, Functional Activity Ritchie, Functional Strength, Group Therapy, Gait, Safety, Therapeutic Exercise, Transfers Treatment Duration: Nov 12, 2017 Frequency: At least 5 of 7 days/Wk (IRF) Estimated Hrs Per Day: 1.5 hours per day Patient and/or Family Agrees t: Yes Time/GCodes Time In: 1400 Time Out: 1430 Total Billed Treatment Time: 30 Total Billed Treatment 1 visit GT 18 min FA 12 min HUAN MENDIOLA PT Oct 30, 2017 15:14
--- NOTE | 2017-10-30 15:18 | PM & R (SOAP) Progress Note ---
Subjective This was a face to face visit with the patient. Date Seen by Provider: Oct 30, 2017 Time Seen by Provider: 07:45 Subjective/Events-last exam Patient was seen in her room this AM Patient reports dyspepsia last night Discussed with RN K replacemnt dosage time adjusted and patient slept better with melatonin.Patient min assist for transfers Objective Physician Exam Last Set of Vital Signs Vital Signs Date Time Temp Pulse Resp B/P (MAP) Pulse Ox O2 Delivery O2 Flow Rate FiO2 10/30/17 08:34 Room Air 10/30/17 05:11 98.4 81 16 132/68 (89) 97 Capillary Refill : Less Than 3 Seconds I&O Intake and Output 10/30/17 00:00 Intake Total 1375 ml Balance 1375 ml Intake Oral 1375 ml # Voids 7 # Bowel Movements 1 General: Alert, Oriented X3, Cooperative, No Acute Distress HEENT: PERRLA, EOMI, Mucous Memb Moist/[place], Other (Bruise rt bahai) Neck: Supple, No JVD Lungs: Clear to Auscultation Heart: Regular Rate Abdomen: Normal Bowel Sounds, Soft, No Tenderness Extremities: Other (RT arm in immobilizer) Neuro: Strength at 5/5 X4 Ext, Other ( RT arm in immobilizer rt leg with tenderness rt knee with guarding remainder generalized weakness sensation intact ) Assessment/Plan Assessment and Plan Rt himerus neck fracture s/p fall managed with immobilizer RT knee contusion resolved Rt bahai contusion healed HTN better controlled Dyspepsia improved with adjustment of K dosage schedule DVT prophylaxis on SCDS Prior colon surgery for CA Plan Continue PT/OT Team Conference tomorrow Monitor blood pressure and adjust meds as needed F/U with DR Mehreen conway (1) Fracture, humerus closed Qualifiers: Status: Acute Co-Morbidities that are continuing to impact the rehab process: (include details ) GURINDER SPAIN MD Oct 30, 2017 15:18
[2017-10-30 17:13] VITALS: BP 113/66
[2017-10-30] MEDS: KCL 10 MEQ TAB (MICRO K) PO SCH (18:06)
[2017-10-30 21:20] VITALS: BP 126/69
[2017-10-30] MEDS: lisINopril 40 MG (PRINIVIL) TABLET PO SCH (21:22)
[2017-10-30] MEDS: lisINopril 5 MG (PRINIVIL) TABLET PO SCH (21:22)
[2017-10-30] MEDS: ATORVASTATIN 20 MG (LIPITOR) TABLET PO SCH (21:22)
[2017-10-30] MEDS: MELATONIN 3 MG TABLET PO PRN (22:43)
[2017-10-31] MEDS: hydrALAZINE (APRESOLINE) 25 MG TAB PO SCH ×3 (06:09→21:06)
[2017-10-31] MEDS: LEVOTHYROXINE 125 MCG (LEVOTHROID) TABLET PO SCH (06:09)
[2017-10-31 06:23] VITALS: BP 143/68
--- NOTE | 2017-10-31 07:18 | PM & R (SOAP) Progress Note ---
Subjective This was a face to face visit with the patient. Date Seen by Provider: Oct 31, 2017 Time Seen by Provider: 07:50 Subjective/Events-last exam Patient was seen in her room this AM Dyspepsia better with adjustment in meds.Patient SBA for transfers Objective Physician Exam Last Set of Vital Signs Vital Signs Date Time Temp Pulse Resp B/P (MAP) Pulse Ox O2 Delivery O2 Flow Rate FiO2 10/31/17 06:23 98.0 87 18 143/68 (93) 96 Room Air Capillary Refill : Less Than 3 Seconds I&O Intake and Output 10/31/17 00:00 Intake Total 1630 ml Balance 1630 ml Intake Oral 1630 ml # Voids 8 # Bowel Movements 1 General: Alert, Oriented X3, Cooperative, No Acute Distress HEENT: PERRLA, EOMI, Mucous Memb Moist/[place], Other (Bruise rt baptism) Neck: Supple, No JVD Lungs: Clear to Auscultation Heart: Regular Rate Abdomen: Normal Bowel Sounds, Soft, No Tenderness Extremities: Other (RT arm in immobilizer) Neuro: Strength at 5/5 X4 Ext, Other ( RT arm in immobilizer rt leg with tenderness rt knee with guarding remainder generalized weakness sensation intact ) Assessment/Plan Assessment and Plan Rt Prox humerus fracture s/p fall managed with Immobilizer RT knee contusion resolved Rt temlpe contusion resolved HTN better controlled Dyspepsia improved with adjustment in K administration schedule DVT prophylaxis on SCDS Prior colon surgery for CA Constipation treated Plan Continue PT/OT Team Conference later today-see report for full functional update and POC and ELOS (1) Fracture, humerus closed Qualifiers: Status: Acute Co-Morbidities that are continuing to impact the rehab process: (include details ) GURINDER SPAIN MD Oct 31, 2017 07:18
--- NOTE | 2017-10-31 08:22 | Progress Note (SOAP) ---
Subjective Time Seen by Provider: 08:15 Subjective/Events-last exam Patient swelling the right hand better. Patient using her right hand more. Patient has pain when she moves her right arm Objective Exam Vital Signs Date Time Temp Pulse Resp B/P (MAP) Pulse Ox O2 Delivery O2 Flow Rate FiO2 10/31/17 06:23 98.0 87 18 143/68 (93) 96 Room Air 10/30/17 21:20 87 126/69 (88) 10/30/17 20:10 Room Air 10/30/17 17:13 98.6 78 14 113/66 (82) 97 Room Air 10/30/17 08:34 Room Air I & O 10/31/17 07:00 Intake Total 1480 ml Balance 1480 ml Capillary Refill : Less Than 3 Seconds General Appearance: No Apparent Distress, WD/WN, Thin HEENT: Normal ENT Inspection Neck: Full Range of Motion, Normal Inspection Respiratory: No Accessory Muscle Use, No Respiratory Distress Assessment/Plan Assessment/Plan Assess & Plan/Chief Complaint right knee effusion. Fall. Debility. Fracture of the humerus. Hypertension. history of colon cancer. Patient lives alone area . . Right knee infusion. fall. Fractured humerus. Hypertension. History of colon cancer. Patient's brother just . Hypertension. . 10/26/17. Right knee effusion. Fractured humerus. Hypertension. History of colon cancer. 2. Lisinopril. Consult Dr. Isidro orthopedics. . 10/29/17 right knee effusion. Fractured humerus. Hypertension. History of colon cancer. Insomnia put on melatonin. . 10/30/17. Right knee effusion. Fractured humerus right. Hypertension. Patient reported no problems. . 10/31/17. Fractured right humerus. Right knee effusion. Hypertension. Swelling in right hand better. Patient able to use right hand better. Patient has pain in movement upper arm Clinical Quality Measures DVT/VTE Risk/Contraindication: Risk Factor Score Per Nursin RFS Level Per Nursing on Admit: 3=High DAVID JONES DO Oct 31, 2017 08:22
--- NOTE | 2017-10-31 09:43 | Occupational Ther Daily Note ---
OT Current Status-Daily Note Subjective Pt seen in room, up in recliner, agreeable to OT. NO pain mentioned except discomfort during use of R arm. Appearance Alert, cooperative Mental Status/Objective Functional [place] Measure 0=Not Assessed/NA 4=Minimal Assistance 1=Total Assistance 5=Supervision or Setup 2=Maximal Assistance 6=Modified [place] 3=Moderate Assistance 7=Complete [place] ADL-Treatment Pt was able to feed herself with setup. While she was eating, OT and patient discussed resources for low vision therapy for her home, including adapted techniques for kitchen. Information provided on low vision support group. She was able to get up from chair without help and walked with SBA, SPC to bathroom , where she washed her hands without help. Functional [place] Measure 0=Not Assessed/NA 4=Minimal Assistance 1=Total Assistance 5=Supervision or Setup 2=Maximal Assistance 6=Modified [place] 3=Moderate Assistance 7=Complete IndependenceIRFPAI Quality Coding Scale 6 Independent with activity with or without an assistive device 5 Patient requires set up or clean up by helper. Patient completes activity by themselves 4 Supervision or touching assist (CGA). [place] provide cues , steadying assist 3 The helper provides less than half the effort to complete the activity 2 The helper provides more than half the effort to complete the activity 1 Dependent. The helper does all the effort to complete an activity 7 Patient refused to complete or attempt activity 9 The patient did not perform the activity before the current illness or injury 88 Not attempted due to Medical conditions or safety concerns Eating (FIM): 5 (Pt was able to butter her toast, spread jelly, cut bread, cut end of banana to peel it. Packages opened. She had some difficulty cutting with R hand due to increased discomfort in R shoulder with pressure for cutting) Other Treatment She walked with SBA, SPC to gym and stood at parallel bars to do Codman's exercises. She had a little difficulty initiating the movements but did demonstrate passive flexion to approx 60 degrees. She walked to chair with arms and was able to get up and down without help. She was able to hold and place beanbags in different locations, working on R elbow active flexion and active extension. Also provided with blue foam genetic counsellor (more difficult that pink one she currently has), able to do 20 squeezes and 20 pinches that work on intrinsic muscles n hand. Care transferred to PT. Education OT Patient Education: Exercise program, Modified ADL techniques, Progress toward Goal/Update tx plan (to patient satisfaction), Purpose of tx/functional activities, Use of adapted equipment Teaching Recipient: Patient Teaching Methods: Demonstration, Discussion Response to Teaching: Verbalize Understanding, Return Demonstration OT Short Term Goals Short Term Goals Time Frame: Oct 29, 2017 Eating(FIM): 5 Toilet/Commode Transfer(FIM): 4 Additional Short Term Goals: 1-Demonstrate ADL Tasks, 2-Verbalize Understanding , 3-ImproveStrength/Ritchie 1=Demonstrate adherence to instructed precautions during ADL tasks. 2=Patient will verbalize/demonstrate understanding of assistive devices/ modifications for ADL. 3=Patient will improve strength/tolerance for activity to enable patient to perform ADL's. OT Abrasive Grader Goals Assisted Goals Time Frame: Nov 09, 2017 Eating (FIM): 5 Eating (QC): 5 Groomin Oral Hygiene (QC): 5 Bathing(FIM): 4 Shower/Bathe Self (QC): 3 Upper Body Dressing(FIM): 5 Upper Body Dressing (QC): 5 Lower Body Dressing(FIM): 5 Lower Body Dressing (QC): 5 On/Off Footwear (QC): 5 Toileting(FIM): 6 Toileting Hygiene (QC): 6 Toilet/Commode Transfer(FIM): 6 Toilet/Commode Transfer (QC): 6 Shower Transfer(FIM): 5 Additional Goals: 1-Demonstrate ADL Tasks, 2-Verbalize Understanding, 3- ImproveStrength/Ritchie 1=Demonstrate adherence to instructed precautions during ADL tasks. 2=Patient will verbalize/demonstrate understanding of assistive devices/ modifications for ADL. 3=Patient will improve strength/tolerance for activity to enable patient to perform ADL's. OT Education/Plan Problem List/Assessment Pt would benefit from skilled OT to increase her independence in basic self care to allow her to safely return home wit family support Discharge Recommendations Plan/Recommendations: Continue POC Treatment Plan/Plan of Care Patient would benefit from OT for education, treatment and training to promote independence in ADL's, mobility, safety and/or upper extremity function for ADL' s. Plan of Care: ADL Retraining, Functional Mobility, Group Exercise/Act as Ind ( education, exercise, act tolerance, functional mobility, R UE funct use, socialization), UE Funct Exercise/Act, UE Neuromus Re-Ed/Coord Treatment Duration: Nov 09, 2017 Frequency: At least 5 of 7 days/Wk (IRF) Estimated Hrs Per Day: 1.5 hours per day Agreement: Yes Rehab Potential: Fair Time/GCodes Start Time: 08:30 Stop Time: 09:30 Total Time Billed (hr/min): 60 Billed Treatment Time visit, 40 minutes ADL, 20 minutes neuromotor MARIOLA COTTRELL OT Oct 31, 2017 09:43
[2017-10-31] MEDS: ASPIRIN E.C. 81 MG (ECOTRIN) TAB PO SCH (10:33)
[2017-10-31] MEDS: FOLIC ACID 1 MG TAB PO SCH (10:33)
[2017-10-31] MEDS: SENNA W/DOCUSATE (SENOKOT S) TABLET PO SCH ×2 (10:33→21:06)
[2017-10-31] MEDS: DILTIAZEM SR 90 MG (CARDIZEM LA) PO SCH (10:33)
[2017-10-31] MEDS: KCL 10 MEQ TAB (MICRO K) PO SCH ×2 (10:33→17:28)
[2017-10-31] MEDS: CARBOXYMETHYLCELLULOSE SODIUM OU SCH ×2 (10:34→21:06)
[2017-10-31] MEDS: BISACODYL 5 MG (DULCOLAX) TABLET PO SCH (10:34)
--- NOTE | 2017-10-31 10:59 | Physical Therapy Daily Note ---
PT Daily Note-Current Subjective Pt. states she really feels that she has made significant progress. But c/o today again of difficulty with her vision as well as dizziness with position change and how this affects her balance. Pt. states several times that she wants to quickly stop using AD. Much education regarding the risk of falling without AD Pain Numeric Pain Scale: 3 Location: Right Location Body Site: Shoulder Pain Description: Ache Mental Status Patient Orientation: Person, Place, Time, Situation Attachments: Other-See Comments (sling RUE) Transfers Functional [place] Measure 0=Not Assessed/NA 4=Minimal Assistance 1=Total Assistance 5=Supervision or Setup 2=Maximal Assistance 6=Modified [place] 3=Moderate Assistance 7=Complete IndependenceIRFPAI Quality Coding Scale 6 Independent with activity with or without an assistive device 5 Patient requires set up or clean up by helper. Patient completes activity by themselves 4 Supervision or touching assist (CGA). [place] provide cues , steadying assist 3 The helper provides less than half the effort to complete the activity 2 The helper provides more than half the effort to complete the activity 1 Dependent. The helper does all the effort to complete an activity 7 Patient refused to complete or attempt activity 9 The patient did not perform the activity before the current illness or injury 88 Not attempted due to Medical conditions or safety concerns Transfers (B, C, W/C) (FIM): 6 Scootin Rollin Roll Left to Right (QC): 5 Supine to/from Sit: 6 Sit to/from Stand: 6 Sit to Lying (QC): 5 Sit to Stand (QC): 5 Chair/Iet-kl-Xhqwh Xfer(QC): 5 Bed to/from Chair: 6 Car Transfer (QC): 5 Weight Bearing Right Lower Extremity: Right Weight Bearing/Tolerated Gait Training Does the Patient Walk?: Yes Gait (FIM): 5 Distance (FIM): 3=150 ft (200x3) Walk 10 feet (QC): 5 Walk 50 ft with 2 Turns(QC): 5 Walk 150 ft (QC): 5 Walking 10ft/uneven surface-QC: 5 Gait Level of Assist: 5 Gait Persons Needed: 1 Gait Assistive Device: Cane Single Point 3 pt hurry cane Stair Training Stair Training: Handrails/: 1 handrail Stairs (FIM): 2 #of Steps: 4 1 Step (curb) (QC): 2 4 Steps (QC): 2 Balance Special Test Comments unsafe to trial Exercises Supine Ex: Bridging, Ankle pumps, Quad Set, Rolling, Glut sets, Heel Slides, Short Arc Quads, Scooting, Straight leg raise, Hip abd/add Supine Reps: 20 Seated Therapy Exercises: Ankle pumps, Sit to stand, Long arc quads, Hip flexion, Hip abd/add Seated Reps: 15 NuStep Minutes: 15 NuStep Workload: 4 Assessment Current Status: Good Progress at risk for falls, dizziness and low vision influence balance PT Short Term Goals Short Term Goals Time Frame: Oct 29, 2017 Gait (FIM): 1 Gait Distance Comment: 40' Gait Level of Assist: 4 Gait Assistive Device: Walker Pancho PT Prison Goals Prison Goals PT Prison Goals Time Frame: Nov 12, 2017 Transfers (B,C,W/C) (FIM): 5 Sit to Lying (QC): 4 Lying-Sitting on Side/Bed(QC): 4 Sit to Stand (QC): 4 Rollin Roll Left to Right (QC): 4 Chair/Sof-mn-Nueik Xfer(QC): 4 Car Transfer (QC): 4 Gait (FIM): 2 Distance: 50' Walk 10 feet (QC): 4 Walk 10ft-Uneven Surface(QC): 4 Walk 50ft with 2 Turns (QC): 4 Walk 150 ft (QC): 4 Gait Level of Assist: 4 Gait Assistive Device: Walker Pancho Stairs (FIM): 1 # of Steps: 1 1 Step (curb) (QC): 3 Stairs Level Of Assist: 4 PT Plan Treatment/Plan Treatment Plan: Continue Plan of Care Treatment Plan: Bed Mobility, Concurrent Therapy, Education, Functional Activity Ritchie, Functional Strength, Group Therapy, Gait, Safety, Therapeutic Exercise, Transfers Treatment Duration: Nov 12, 2017 Frequency: At least 5 of 7 days/Wk (IRF) Estimated Hrs Per Day: 1.5 hours per day Patient and/or Family Agrees t: Yes Safety Risks/Education Patient Education: Gait Training, Transfer Techniques, Steps, Correct Positioning, Disease Process, Safety Issues Teaching Recipient: Patient Teaching Methods: Demonstration, Discussion Response to Teaching: Verbalize Understanding, Return Demonstration, Reinforcement Needed educated on importance of fall prevention, low vision and staying put after position change until dizziness subsides Time/GCodes Time In: 930 Time Out: 1100 Total Billed Treatment Time: 90 Total Billed Treatment 1,EX30m,FA30m,GT30m G Codes Necessary: No KODI DECKER TEACHING YOUNG Oct 31, 2017 10:59
--- NOTE | 2017-10-31 13:45 | Occupational Ther Daily Note ---
OT Current Status-Daily Note Subjective Pt seen in room, up in recliner, agreeable to OT. No pain mentioned. Appearance Alert, cooperative Mental Status/Objective Functional [place] Measure 0=Not Assessed/NA 4=Minimal Assistance 1=Total Assistance 5=Supervision or Setup 2=Maximal Assistance 6=Modified [place] 3=Moderate Assistance 7=Complete [place] ADL-Treatment Functional [place] Measure 0=Not Assessed/NA 4=Minimal Assistance 1=Total Assistance 5=Supervision or Setup 2=Maximal Assistance 6=Modified [place] 3=Moderate Assistance 7=Complete IndependenceIRFPAI Quality Coding Scale 6 Independent with activity with or without an assistive device 5 Patient requires set up or clean up by helper. Patient completes activity by themselves 4 Supervision or touching assist (CGA). [place] provide cues , steadying assist 3 The helper provides less than half the effort to complete the activity 2 The helper provides more than half the effort to complete the activity 1 Dependent. The helper does all the effort to complete an activity 7 Patient refused to complete or attempt activity 9 The patient did not perform the activity before the current illness or injury 88 Not attempted due to Medical conditions or safety concerns Other Treatment Pt did 10 reps exercises with L UE, using 2# weight, working on shoulder, elbow , forearm and wrist. Pt provided primarily hand over hand assistance to do them correctly due to low vision. Pt did 10 reps active range with no additional weight with R UE, working on elbow, forearm and wrist, focus on smooth movements at functional speed. To strengthen arms to help with ADLs and transfers. Pt left up in recliner, all needs met. Education OT Patient Education: Exercise program, Purpose of tx/functional activities Teaching Recipient: Patient Teaching Methods: Demonstration, Discussion Response to Teaching: Verbalize Understanding, Return Demonstration OT Short Term Goals Short Term Goals Time Frame: Oct 29, 2017 Eating(FIM): 5 Toilet/Commode Transfer(FIM): 4 Additional Short Term Goals: 1-Demonstrate ADL Tasks, 2-Verbalize Understanding , 3-ImproveStrength/Ritchie 1=Demonstrate adherence to instructed precautions during ADL tasks. 2=Patient will verbalize/demonstrate understanding of assistive devices/ modifications for ADL. 3=Patient will improve strength/tolerance for activity to enable patient to perform ADL's. OT Penitentiary Goals Er Medical Technician Goals Time Frame: Nov 09, 2017 Eating (FIM): 5 Eating (QC): 5 Groomin Oral Hygiene (QC): 5 Bathing(FIM): 4 Shower/Bathe Self (QC): 3 Upper Body Dressing(FIM): 5 Upper Body Dressing (QC): 5 Lower Body Dressing(FIM): 5 Lower Body Dressing (QC): 5 On/Off Footwear (QC): 5 Toileting(FIM): 6 Toileting Hygiene (QC): 6 Toilet/Commode Transfer(FIM): 6 Toilet/Commode Transfer (QC): 6 Shower Transfer(FIM): 5 Additional Goals: 1-Demonstrate ADL Tasks, 2-Verbalize Understanding, 3- ImproveStrength/Ritchie 1=Demonstrate adherence to instructed precautions during ADL tasks. 2=Patient will verbalize/demonstrate understanding of assistive devices/ modifications for ADL. 3=Patient will improve strength/tolerance for activity to enable patient to perform ADL's. OT Education/Plan Problem List/Assessment Pt would benefit from skilled OT to increase her independence in basic self care to allow her to safely return home wit family support Discharge Recommendations Plan/Recommendations: Continue POC Treatment Plan/Plan of Care Patient would benefit from OT for education, treatment and training to promote independence in ADL's, mobility, safety and/or upper extremity function for ADL' s. Plan of Care: ADL Retraining, Functional Mobility, Group Exercise/Act as Ind ( education, exercise, act tolerance, functional mobility, R UE funct use, socialization), UE Funct Exercise/Act, UE Neuromus Re-Ed/Coord Treatment Duration: Nov 09, 2017 Frequency: At least 5 of 7 days/Wk (IRF) Estimated Hrs Per Day: 1.5 hours per day Agreement: Yes Rehab Potential: Fair Time/GCodes Start Time: 13:00 Stop Time: 13:30 Total Time Billed (hr/min): 30 Billed Treatment Time visit, 30 minutes exercise MARIOLA COTTRELL OT Oct 31, 2017 13:45
[2017-10-31 17:59] VITALS: BP 118/67
[2017-10-31 21:05] VITALS: BP 168/72
[2017-10-31] MEDS: lisINopril 5 MG (PRINIVIL) TABLET PO SCH (21:07)
[2017-10-31] MEDS: lisINopril 40 MG (PRINIVIL) TABLET PO SCH (21:07)
[2017-10-31] MEDS: ATORVASTATIN 20 MG (LIPITOR) TABLET PO SCH (21:07)
[2017-10-31] MEDS: MELATONIN 3 MG TABLET PO PRN (22:42)
[2017-11-01 05:17] VITALS: BP 163/65
[2017-11-01] MEDS: LEVOTHYROXINE 125 MCG (LEVOTHROID) TABLET PO SCH (05:51)
[2017-11-01] MEDS: hydrALAZINE (APRESOLINE) 25 MG TAB PO SCH ×3 (05:51→21:36)
--- NOTE | 2017-11-01 07:17 | Occupational Ther Daily Note ---
OT Current Status-Daily Note Subjective Pt alert, lying in bed. Pt agrees to therapy. No c/o pain at this time. Mental Status/Objective Patient Orientation: Person, Place, Time, Situation Functional [place] Measure 0=Not Assessed/NA 4=Minimal Assistance 1=Total Assistance 5=Supervision or Setup 2=Maximal Assistance 6=Modified [place] 3=Moderate Assistance 7=Complete [place] ADL-Treatment Functional [place] Measure 0=Not Assessed/NA 4=Minimal Assistance 1=Total Assistance 5=Supervision or Setup 2=Maximal Assistance 6=Modified [place] 3=Moderate Assistance 7=Complete IndependenceIRFPAI Quality Coding Scale 6 Independent with activity with or without an assistive device 5 Patient requires set up or clean up by helper. Patient completes activity by themselves 4 Supervision or touching assist (CGA). [place] provide cues , steadying assist 3 The helper provides less than half the effort to complete the activity 2 The helper provides more than half the effort to complete the activity 1 Dependent. The helper does all the effort to complete an activity 7 Patient refused to complete or attempt activity 9 The patient did not perform the activity before the current illness or injury 88 Not attempted due to Medical conditions or safety concerns Eating (FIM): 6 (Pt able to open containers/packages by self then uses regular utensils to feed self.) Eating (QC): 6 Grooming (FIM): 6 (Pt able to stand at sink to complete grooming. Chair nearby for pt to sit if needed.) Oral Hygiene (QC): 6 Bathing (FIM): 5 (Due to pt's vision it is difficulty for her to turn water on and off, assist to manage water temperature. Using grabbar, hand held shower and shower bench pt is able to complete shower by self.) Bathing Location: L Arm, R Arm, L Upper Leg, R Upper Leg, L Lower Leg ( including foot), R Lower Leg (including foot), Chest, Abdomen, Buttocks, Perineal Area Shower/Bathe Self (QC): 5 Upper Body (FIM): 5 (Assist to retrieve clothing. Pt able to complete dressing by self.) Upper Body Dressing (QC): 5 (Assist to retrieve clothing. Pt able to complete dressing by self.) Lower Body Dressing (FIM): 5 (Assist to retrieve clothing. Pt able to complete dressing by self.) Lower Body Dressing (QC): 5 (Assist to retrieve clothing. Pt able to complete dressing by self.) On/Off Footwear (QC): 5 Toileting (FIM): 6 (Using grabbars and BSC pt is able to complete by self.) Toileting Hygiene (QC): 6 Toilet/Commode Transfer (FIM): 6 (Using grabbars and BSC to complete transfer.) Toilet Transfer (QC): 6 Shower Transfer(FIM): 6 (Using grabbar and shower bench pt is able to complete transfer.) Pt is apprehensive about completing tasks on own. Due to this retrieving objects/clothing and ambulating around room is a safety concern, slight LOB has occurred during ambulation. Pt was able to complete Codman's exercises, 10 reps each with verbal cues. Therapy sponge exercises completed to increase strength for transportation dispatcher and pinch during daily tasks. After therapy, pt eating breakfast sitting in recliner. Call light/phone in reach. All needs met in room. OT Short Term Goals Short Term Goals Time Frame: Oct 29, 2017 Eating(FIM): 5 Toilet/Commode Transfer(FIM): 4 Additional Short Term Goals: 1-Demonstrate ADL Tasks, 2-Verbalize Understanding , 3-ImproveStrength/Ritchie 1=Demonstrate adherence to instructed precautions during ADL tasks. 2=Patient will verbalize/demonstrate understanding of assistive devices/ modifications for ADL. 3=Patient will improve strength/tolerance for activity to enable patient to perform ADL's. OT Cofounder Goals Cofounder Goals Time Frame: Nov 09, 2017 Eating (FIM): 5 (met-11/01/17) Eating (QC): 5 (met-11/01/17) Groomin (met-11/01/17) Oral Hygiene (QC): 5 (met-11/01/17) Bathing(FIM): 4 (met-11/01/17) Shower/Bathe Self (QC): 3 (met-11/01/17) Upper Body Dressing(FIM): 5 (met-11/01/17) Upper Body Dressing (QC): 5 (met-11/01/17) Lower Body Dressing(FIM): 5 (met-11/01/17) Lower Body Dressing (QC): 5 (met-11/01/17) On/Off Footwear (QC): 5 (met-11/01/17) Toileting(FIM): 6 (met-11/01/17) Toileting Hygiene (QC): 6 (met-11/01/17) Toilet/Commode Transfer(FIM): 6 (met-11/01/17) Toilet/Commode Transfer (QC): 6 (met-11/01/17) Shower Transfer(FIM): 5 (met-11/01/17) Additional Goals: 1-Demonstrate ADL Tasks, 2-Verbalize Understanding, 3- ImproveStrength/Ritchie 1=Demonstrate adherence to instructed precautions during ADL tasks. 2=Patient will verbalize/demonstrate understanding of assistive devices/ modifications for ADL. 3=Patient will improve strength/tolerance for activity to enable patient to perform ADL's. OT Education/Plan Problem List/Assessment Pt would benefit from skilled OT to increase her independence in basic self care to allow her to safely return home wit family support Discharge Recommendations Plan/Recommendations: Continue POC Treatment Plan/Plan of Care Patient would benefit from OT for education, treatment and training to promote independence in ADL's, mobility, safety and/or upper extremity function for ADL' s. Plan of Care: ADL Retraining, Functional Mobility, Group Exercise/Act as Ind ( education, exercise, act tolerance, functional mobility, R UE funct use, socialization), UE Funct Exercise/Act, UE Neuromus Re-Ed/Coord Treatment Duration: Nov 09, 2017 Frequency: At least 5 of 7 days/Wk (IRF) Estimated Hrs Per Day: 1.5 hours per day Agreement: Yes Rehab Potential: Fair Time/GCodes Start Time: 07:00 Stop Time: 08:30 Total Time Billed (hr/min): 90 Billed Treatment Time 1 visit-ADL 5 (75 min) NM 1 (15 min) KI MORENO Nov 01, 2017 07:16
--- NOTE | 2017-11-01 08:01 | Progress Note (SOAP) ---
Subjective Time Seen by Provider: 08:00 Subjective/Events-last exam Patient doing better. Patient dressed himself today by herself. Patient moving her hands better. No swelling of right hand Objective Exam Vital Signs Date Time Temp Pulse Resp B/P (MAP) Pulse Ox O2 Delivery O2 Flow Rate FiO2 11/01/17 05:17 98.8 93 18 163/65 (97) 97 Room Air 10/31/17 21:05 90 168/72 (104) 10/31/17 21:00 Room Air 10/31/17 17:59 98.4 88 18 118/67 (84) 97 Room Air 10/31/17 09:00 Room Air I & O 11/01/17 07:00 Intake Total 1400 ml Balance 1400 ml Capillary Refill : Less Than 3 Seconds General Appearance: No Apparent Distress, WD/WN, Thin HEENT: Normal ENT Inspection Neck: Full Range of Motion, Normal Inspection Assessment/Plan Assessment/Plan Assess & Plan/Chief Complaint right knee effusion. Fall. Debility. Fracture of the humerus. Hypertension. history of colon cancer. Patient lives alone area . . Right knee infusion. fall. Fractured humerus. Hypertension. History of colon cancer. Patient's brother just . Hypertension. . 10/26/17. Right knee effusion. Fractured humerus. Hypertension. History of colon cancer. 2. Lisinopril. Consult Dr. Isidro orthopedics. . 10/29/17 right knee effusion. Fractured humerus. Hypertension. History of colon cancer. Insomnia put on melatonin. . 10/30/17. Right knee effusion. Fractured humerus right. Hypertension. Patient reported no problems. . 10/31/17. Fractured right humerus. Right knee effusion. Hypertension. Swelling in right hand better. Patient able to use right hand better. Patient has pain in movement upper arm. . 11/01/17. Fractured right humerus. Right knee effusion. Hypertension. Patient doing better. Patient was able to dress himself by herself today. Patient accomplishing more Clinical Quality Measures DVT/VTE Risk/Contraindication: Risk Factor Score Per Nursin RFS Level Per Nursing on Admit: 3=High DAVID JONES DO Nov 01, 2017 08:01
[2017-11-01] MEDS: DILTIAZEM SR 90 MG (CARDIZEM LA) PO SCH (08:32)
[2017-11-01] MEDS: KCL 10 MEQ TAB (MICRO K) PO SCH ×2 (08:33→17:37)
[2017-11-01] MEDS: FOLIC ACID 1 MG TAB PO SCH (08:33)
[2017-11-01] MEDS: ASPIRIN E.C. 81 MG (ECOTRIN) TAB PO SCH (08:33)
[2017-11-01] MEDS: SENNA W/DOCUSATE (SENOKOT S) TABLET PO SCH ×2 (08:33→21:36)
[2017-11-01] MEDS: BISACODYL 5 MG (DULCOLAX) TABLET PO SCH (08:33)
[2017-11-01] MEDS: CARBOXYMETHYLCELLULOSE SODIUM OU SCH ×2 (08:34→21:44)
--- NOTE | 2017-11-01 08:42 | PM & R (SOAP) Progress Note ---
Subjective This was a face to face visit with the patient. Date Seen by Provider: Nov 01, 2017 Time Seen by Provider: 08:00 Subjective/Events-last exam Patient was seen in her room this AM Just completing Morning ADLS with OT Patient SBA for transfers Objective Physician Exam Last Set of Vital Signs Vital Signs Date Time Temp Pulse Resp B/P (MAP) Pulse Ox O2 Delivery O2 Flow Rate FiO2 11/01/17 05:17 98.8 93 18 163/65 (97) 97 Room Air Capillary Refill : Less Than 3 Seconds I&O Intake and Output 11/01/17 00:00 Intake Total 1250 ml Balance 1250 ml Intake Oral 1250 ml # Voids 8 # Bowel Movements 1 General: Alert, Oriented X3, Cooperative, No Acute Distress HEENT: PERRLA, EOMI, Mucous Memb Moist/[place], Other (Bruise rt judaism) Neck: Supple, No JVD Lungs: Clear to Auscultation Heart: Regular Rate Abdomen: Normal Bowel Sounds, Soft, No Tenderness Extremities: Other (RT arm in immobilizer) Neuro: Strength at 5/5 X4 Ext, Other ( RT arm in immobilizer rt leg with tenderness rt knee with guarding remainder generalized weakness sensation intact ) Assessment/Plan Assessment and Plan RT prox humerus fracture s/p fall managed with immobilizer RT knee contusion resolved Rt judaism contusion resolved HTN better controlled Dyspepsia resolved with adjustment in K administration schedule DVT prophylaxis on SCDS Prior Colon surgery for CA Constipation treated Plan Continue PT/OT Discharge remains set for tomorrow to home with family in [place] Patient indicates that she will have f/u with [facility] in [place] and DR Isidro ortho Current meds reviewed (1) Fracture, humerus closed Qualifiers: Status: Acute Co-Morbidities that are continuing to impact the rehab process: (include details ) GURINDER SPAIN MD Nov 01, 2017 08:42
[2017-11-01] MEDS ORDERED: PATCH REMOVAL TP SCH (08:59)
[2017-11-01] MEDS ORDERED: cloNIDine 0.1 MG PATCH (CATAPRES TTS) TDSY TD SCH (09:00)
[2017-11-01] MEDS ORDERED: CLONIDINE PATCH REMOVAL TP SCH (09:10)
--- NOTE | 2017-11-01 09:28 | D/C HH Face to Face Order ---
D/C Face to Face Orders Instructions for Patient Patient Instructions/FollowUp: Dr. Dwaine Malhotra Physician to follow Patient: Dr. Isidro Discharge Diet for Home: Regular Diet Patient Data-Allergies,Ht & Wt Patient Allergies: Coded Allergies: No Known Drug Allergies (Unverified , 10/22/17) Height (Feet): 5 Height (Inches): 5.00 Weight (Pounds): 130 Weight (Ounces): 6.0 Home Health Need/Face to Face Date of Face to Face: Nov 02, 2017 Clinical Findings: Generalized weakness and fatigue, Muscle weakness, Non or partial weight bearing (NWB on R shoulder), Unsteady gait I have seen Pt [id number]: Yes Discharged To: Home Diagnosis/Conditions: Debility post fall resulting in R humerus fracture and R knee contusion Patient is Homebound due to: Guillermo fall risk due to instabilty, Muscle weakness Homebound Status Due to the above stated illness, injury or surgical procedure (medical condition or diagnosis) and associated clinical findings, the patient is homebound because of his/her inability to leave home except with aid of a supportive device and/or person AND leaving the home requires a considerable and taxing effort or is medically contraindicated. Pt req the following assistanc: Cane Home Health Nursing Orders Home Health Services Order: Nursing Services, Physical Chemistry Teacher-Evaluate & Treat, Physical Therapy-Evaluate & Treat, Other (bath aide) RN services for BP medication management and oversight, as well as Potassium oversight due to replacement. Therapy Orders Therapy Orders: OT (must have SN or PT order), Physical Therapy Therapy Specific Orders: Eval assistive deivces, Teach enviro modifications/ safety, Gait training, Increase strength/endurance, Restore ROM Certify Stmt I certify that this patient is under my care and that I, a nurse practitioner or a physician; a help desk assistant working with me, had a face to face encounter that - meets the physician face to face encounter requirements with this patient as dated. I personally scribed for GURINDER SPAIN MD ([facility]) on 10/31/17 at 09:38. Electronically submitted by Alyx Ann ([id number]). I personally scribed for GURINDER SPAIN MD) on 11/01/17 at 09:28. Electronically submitted by Alyx Ann ([id number]). I personally scribed for GURINDER SPAIN MD ([facility]) on 11/01/17 at 10:07. Electronically submitted by Alyx Ann ([id number]). GURINDER SPAIN MD Oct 31, 2017 09:38
--- NOTE | 2017-11-01 10:30 | Physical Therapy Daily Note ---
PT Daily Note-Current Subjective Pt sitting in recliner upon arrival. Pt agrees to PT for FIM scoring for discharge tomorrow (11/01) Pain Numeric Pain Scale: 3 Location: Right Location Body Site: Shoulder Pain Description: Ache Mental Status Patient Orientation: Person, Place, Time, Situation Attachments: Other-See Comments (Sling for RUE) Transfers Functional [place] Measure 0=Not Assessed/NA 4=Minimal Assistance 1=Total Assistance 5=Supervision or Setup 2=Maximal Assistance 6=Modified [place] 3=Moderate Assistance 7=Complete IndependenceIRFPAI Quality Coding Scale 6 Independent with activity with or without an assistive device 5 Patient requires set up or clean up by helper. Patient completes activity by themselves 4 Supervision or touching assist (CGA). [place] provide cues , steadying assist 3 The helper provides less than half the effort to complete the activity 2 The helper provides more than half the effort to complete the activity 1 Dependent. The helper does all the effort to complete an activity 7 Patient refused to complete or attempt activity 9 The patient did not perform the activity before the current illness or injury 88 Not attempted due to Medical conditions or safety concerns Transfers (B, C, W/C) (FIM): 6 Scootin Rollin Roll Left to Right (QC): 6 Supine to/from Sit: 6 Sit to/from Stand: 6 Sit to Lying (QC): 6 Sit to Stand (QC): 6 Chair/Kji-zm-Xwjyb Xfer(QC): 6 Bed to/from Chair: 6 Car Transfer (QC): 6 Weight Bearing Right Lower Extremity: Right Weight Bearing/Tolerated Gait Training Does the Patient Walk?: Yes Gait (FIM): 6 Distance (FIM): 3=150 ft Distance: 200' Walk 10 feet (QC): 6 Walk 50 ft with 2 Turns(QC): 6 Walk 150 ft (QC): 6 Walking 10ft/uneven surface-QC: 6 Gait Level of Assist: 6 Gait Persons Needed: 1 Gait Assistive Device: Cane Single Point Pt walks with slow cha, steady with no LOB. Pt reports feeling a little nervous about SPC, SENIOR SSIS DEVELOPER observes pt is Mod I. Wheelchair Training Does the Pt Use a Wheelchair?: No Stair Training Stair Training: Handrails/: 1 handrail Stairs (FIM): 6 #of Steps: 12 1 Step (curb) (QC): 6 4 Steps (QC): 6 12 Steps (QC): 6 Stairs: Pattern: Reciprocal Level of Assist: 6 Balance Picking up an Object (QC): 88 Special Test Comments This is not safe to test at this time. Pt will use a reaming machine tender/grabber for picking up objects a home. Exercises Seated Therapy Exercises: Long arc quads, Hip flexion, Kicking activity Seated Reps: 10 Treatments Pt completes bed mobility, transfers from Supine to EOB to Standing & vice versa at Mod I, completes car transfer, walking over varying surface, 3 sets of 4 steps in reciprocal gait pattern all at Mod I. Pt ambulates in hallway and Therapy Commons using SPC at Mod I. Pt returns to room to use restroom then rest in recliner at end of tx with all needs met, including call light & phone next to pt. Assessment Current Status: Good Progress Pt has some nervousness about discharge tomorrow but SENIOR SSIS DEVELOPER reassured pt that pt has improved since coming to [facility]. Pt is at Mod I for all ambulation & transfers and will improve further with balance as UE heals and pt can use normally again. PT Short Term Goals Short Term Goals Time Frame: Oct 29, 2017 Gait (FIM): 1 Gait Distance Comment: 40' Gait Level of Assist: 4 Gait Assistive Device: Walker Pancho PT Cost Specialist Goals Cost Specialist Goals PT Custodial Goals Time Frame: Nov 12, 2017 Transfers (B,C,W/C) (FIM): 5 Sit to Lying (QC): 4 Lying-Sitting on Side/Bed(QC): 4 Sit to Stand (QC): 4 Rollin Roll Left to Right (QC): 4 Chair/Cdm-rr-Xbxde Xfer(QC): 4 Car Transfer (QC): 4 Gait (FIM): 2 Distance: 50' Walk 10 feet (QC): 4 Walk 10ft-Uneven Surface(QC): 4 Walk 50ft with 2 Turns (QC): 4 Walk 150 ft (QC): 4 Gait Level of Assist: 4 Gait Assistive Device: Walker Pancho Stairs (FIM): 1 # of Steps: 1 1 Step (curb) (QC): 3 Stairs Level Of Assist: 4 PT Plan Problem List Problem List: Activity Tolerance Treatment/Plan Treatment Plan: Continue Plan of Care Treatment Plan: Bed Mobility, Concurrent Therapy, Education, Functional Activity Ritchie, Functional Strength, Group Therapy, Gait, Safety, Therapeutic Exercise, Transfers Treatment Duration: Nov 12, 2017 Frequency: At least 5 of 7 days/Wk (IRF) Estimated Hrs Per Day: 1.5 hours per day Patient and/or Family Agrees t: Yes Safety Risks/Education Patient Education: Gait Training, Transfer Techniques, Steps, Correct Positioning, Safety Issues Teaching Recipient: Patient Teaching Methods: Discussion Response to Teaching: Verbalize Understanding Time/GCodes Time In: 900 Time Out: 1000 Total Billed Treatment Time: 60 Total Billed Treatment 1, GT (15m), FA x2 (30m) & EX (15m) G Codes Necessary: NANCY Lubin SENIOR SSIS DEVELOPER Nov 01, 2017 10:29
--- NOTE | 2017-11-01 12:00 | Physical Therapy Daily Note ---
PT Daily Note-Current Subjective Pt sitting in recliner upon arrival. Pt agrees to PT. Pain Numeric Pain Scale: 3 Location: Right Location Body Site: Shoulder Pain Description: Ache Mental Status Patient Orientation: Person, Place, Time, Situation Attachments: Other-See Comments Transfers Functional [place] Measure 0=Not Assessed/NA 4=Minimal Assistance 1=Total Assistance 5=Supervision or Setup 2=Maximal Assistance 6=Modified [place] 3=Moderate Assistance 7=Complete IndependenceIRFPAI Quality Coding Scale 6 Independent with activity with or without an assistive device 5 Patient requires set up or clean up by helper. Patient completes activity by themselves 4 Supervision or touching assist (CGA). [place] provide cues , steadying assist 3 The helper provides less than half the effort to complete the activity 2 The helper provides more than half the effort to complete the activity 1 Dependent. The helper does all the effort to complete an activity 7 Patient refused to complete or attempt activity 9 The patient did not perform the activity before the current illness or injury 88 Not attempted due to Medical conditions or safety concerns Scootin Sit to/from Stand: 6 Sit to Stand (QC): 6 Weight Bearing Right Lower Extremity: Right Weight Bearing/Tolerated Gait Training Does the Patient Walk?: Yes Distance (FIM): 3=150 ft Distance: 350' Walk 10 feet (QC): 6 Walk 50 ft with 2 Turns(QC): 6 Walk 150 ft (QC): 6 Gait Level of Assist: 6 Gait Assistive Device: Cane Single Point Pt has slow but steady pace, no LOB. Wheelchair Training Does the Pt Use a Wheelchair?: No Treatments Pt transfers from recliner using SPC at Mod I. Pt ambulates in hallway using SPC at Mod I with several rest breaks as needed. Pt returns to room to use restroom then rest in recliner at end of tx with all needs met, including call light & phone next to pt. Assessment Current Status: Good Progress Pt fatigues and rest as needed. PT Short Term Goals Short Term Goals Time Frame: Oct 29, 2017 Gait (FIM): 1 Gait Distance Comment: 40' Gait Level of Assist: 4 Gait Assistive Device: Walker Pancho PT Jail Goals Jail Goals PT Jail Goals Time Frame: Nov 12, 2017 Transfers (B,C,W/C) (FIM): 5 Sit to Lying (QC): 4 Lying-Sitting on Side/Bed(QC): 4 Sit to Stand (QC): 4 Rollin Roll Left to Right (QC): 4 Chair/Prh-je-Wmuyj Xfer(QC): 4 Car Transfer (QC): 4 Gait (FIM): 2 Distance: 50' Walk 10 feet (QC): 4 Walk 10ft-Uneven Surface(QC): 4 Walk 50ft with 2 Turns (QC): 4 Walk 150 ft (QC): 4 Gait Level of Assist: 4 Gait Assistive Device: Walker Pancho Stairs (FIM): 1 # of Steps: 1 1 Step (curb) (QC): 3 Stairs Level Of Assist: 4 PT Plan Problem List Problem List: Activity Tolerance Treatment/Plan Treatment Plan: Continue Plan of Care Treatment Plan: Bed Mobility, Concurrent Therapy, Education, Functional Activity [place], Functional Strength, Group Therapy, Gait, Safety, Therapeutic Exercise, Transfers Treatment Duration: Nov 12, 2017 Frequency: At least 5 of 7 days/Wk (IRF) Estimated Hrs Per Day: 1.5 hours per day Patient and/or Family Agrees t: Yes Safety Risks/Education Patient Education: Gait Training, Correct Positioning, Safety Issues Teaching Recipient: Patient Teaching Methods: Discussion Response to Teaching: Verbalize Understanding Time/GCodes Time In: 1130 Time Out: 1200 Total Billed Treatment 1, GT (20m) & FA (10m) G Codes Necessary: NANCY Lubin PTA Nov 01, 2017 12:00
[2017-11-01] MEDS ORDERED: HYDR-3923 PO (16:58)
[2017-11-01] MEDS ORDERED: ACET-77 PO (16:58)
[2017-11-01] MEDS ORDERED: TRAM50TA2 PO (16:58)
[2017-11-01] MEDS ORDERED: LEVO125T PO (16:58)
[2017-11-01] MEDS ORDERED: LISI-556 PO (16:58)
[2017-11-01 18:00] VITALS: BP 143/67
[2017-11-01] MEDS: lisINopril 5 MG (PRINIVIL) TABLET PO SCH (21:36)
[2017-11-01] MEDS: ATORVASTATIN 20 MG (LIPITOR) TABLET PO SCH (21:36)
[2017-11-01] MEDS: lisINopril 40 MG (PRINIVIL) TABLET PO SCH (21:36)
[2017-11-01] MEDS: MELATONIN 3 MG TABLET PO PRN (21:41)
[2017-11-02 06:25] VITALS: BP 152/69
[2017-11-02] MEDS: hydrALAZINE (APRESOLINE) 25 MG TAB PO SCH ×2 (06:29→14:12)
[2017-11-02] MEDS: LEVOTHYROXINE 125 MCG (LEVOTHROID) TABLET PO SCH (06:30)
--- NOTE | 2017-11-02 07:54 | PM & R (SOAP) Progress Note ---
Subjective This was a face to face visit with the patient. Date Seen by Provider: Nov 02, 2017 Time Seen by Provider: 07:30 Subjective/Events-last exam Patient was seen in her room this AM.[place] for discharge Has progressed well and has supportive family who will assist her at home Objective Physician Exam Last Set of Vital Signs Vital Signs Date Time Temp Pulse Resp B/P (MAP) Pulse Ox O2 Delivery O2 Flow Rate FiO2 11/02/17 06:25 98.2 72 18 152/69 (96) 98 Room Air Capillary Refill : Less Than 3 Seconds I&O Intake and Output 11/02/17 00:00 Intake Total 1400 ml Balance 1400 ml Intake Oral 1400 ml # Voids 9 # Bowel Movements 1 General: Alert, Oriented X3, Cooperative, No Acute Distress HEENT: PERRLA, EOMI, Mucous Memb Moist/[place], Other (Bruise rt sikh) Neck: Supple, No JVD Lungs: Clear to Auscultation Heart: Regular Rate Abdomen: Normal Bowel Sounds, Soft, No Tenderness Extremities: Other (RT arm in immobilizer) Neuro: Strength at 5/5 X4 Ext, Other ( RT arm in immobilizer rt leg with tenderness rt knee with guarding remainder generalized weakness sensation intact ) Assessment/Plan Assessment and Plan Home today to [place] with family and C F/U with Roscoe zepeda and DR Dwaine cai Current meds reviewed See orders (1) Fracture, humerus closed Qualifiers: Status: Acute Co-Morbidities that are continuing to impact the rehab process: (include details ) GURINDER SPAIN MD Nov 02, 2017 07:54
--- NOTE | 2017-11-02 07:56 | Progress Note (SOAP) ---
Subjective Time Seen by Provider: 07:55 Subjective/Events-last exam Patient to be discharged today. Patient feels better. Patient able to dress by self Objective Exam Vital Signs Date Time Temp Pulse Resp B/P (MAP) Pulse Ox O2 Delivery O2 Flow Rate FiO2 11/02/17 06:25 98.2 72 18 152/69 (96) 98 Room Air 11/01/17 20:10 Room Air 11/01/17 18:00 99.3 85 20 143/67 (92) 97 Room Air 11/01/17 09:00 Room Air I & O 11/02/17 07:00 Intake Total 1200 ml Balance 1200 ml Capillary Refill : Less Than 3 Seconds General Appearance: No Apparent Distress, Thin Assessment/Plan Assessment/Plan Assess & Plan/Chief Complaint right knee effusion. Fall. Debility. Fracture of the humerus. Hypertension. history of colon cancer. Patient lives alone area . . Right knee infusion. fall. Fractured humerus. Hypertension. History of colon cancer. Patient's brother just . Hypertension. . 10/26/17. Right knee effusion. Fractured humerus. Hypertension. History of colon cancer. 2. Lisinopril. Consult Dr. Isidro orthopedics. . 10/29/17 right knee effusion. Fractured humerus. Hypertension. History of colon cancer. Insomnia put on melatonin. . 10/30/17. Right knee effusion. Fractured humerus right. Hypertension. Patient reported no problems. . 10/31/17. Fractured right humerus. Right knee effusion. Hypertension. Swelling in right hand better. Patient able to use right hand better. Patient has pain in movement upper arm. . 11/01/17. Fractured right humerus. Right knee effusion. Hypertension. Patient doing better. Patient was able to dress himself by herself today. Patient accomplishing more. . 11/02/17. Fractured right humerus. Hypertension. Patient be discharged today Clinical Quality Measures DVT/VTE Risk/Contraindication: Risk Factor Score Per Nursin RFS Level Per Nursing on Admit: 3=High DAVID JONES DO Nov 02, 2017 07:56
--- NOTE | 2017-11-02 08:10 | Therapy Team Discharge Summary ---
Therapy Discharge Summary Discharge Recommendations Date of Discharge Therapy D/C Recommendations: Home w/ Family Support, [facility] (TCU/NH) Physical Therapy Patient came to rehab with R humerus fx, R knee effusion. Upon evaluation patient performed bed mobility and supine <-> sit with min assist, sit to stand with mod assist from lower surfaces, and transfers with CGA, and ambulated 10' with a hemiwalker with min assist. Patient has been performing bed mobility and transfer training, balance and endurance training, functional strengthening , stair training, gait training, and education. Patient has made good progress and has met all of her jail goals. Now, patient performs bed mobility and transfers with mod I, car transfer with mod I, ambulates 200' with a SPC with mod I (including 50' with at least 2 turns of 90 degrees and 10' over an uneven surface), and can go up and down 12 steps using 1 handrail with mod I. Patient is discharging from this facility today and will be discharged from PT at this time. Occupational Therapy Decreased UE Strength, Dependent Transfers, Impaired Funct Balance, Impaired Self-Care Skills, Restricted Funct UE ROM PT Harp Repairer Goals [facility] Goals PT Harp Repairer Goals Time Frame: Nov 12, 2017 Transfers (B,C,W/C) (FIM): 5 Roll Left to Right (QC): 4 Sit to Lying (QC): 4 Lying-Sitting on Side/Bed(QC): 4 Sit to Stand (QC): 4 Chair/Zlh-nb-Cxtpz Xfer(QC): 4 Car Transfer (QC): 4 Gait (FIM): 2 Distance: 50' Walk 10 feet (QC): 4 Walk 10ft-Uneven Surface(QC): 4 Walk 50ft with 2 Turns (QC): 4 Walk 150 ft (QC): 4 Gait Level of Assist: 4 Gait Assistive Device: Walker Pancho Stairs (FIM): 1 # of Steps: 1 1 Step (curb) (QC): 3 Stairs Level Of Assist: 4 OT Harp Repairer Goals [facility] Goals Time Frame: Nov 09, 2017 Eating (FIM): 5 (met-11/01/17) Eating (QC): 5 (met-11/01/17) Oral Hygiene (QC): 5 (met-11/01/17) Grooming(FIM): 5 (met-11/01/17) Bathing(FIM): 4 (met-11/01/17) Shower/Bathe Self (QC): 3 (-11/01/17) Upper Body Dressing(FIM): 5 (-11/01/17) Upper Body Dressing (QC): 5 (-11/01/17) Lower Body Dressing(FIM): 5 (-11/01/17) Lower Body Dressing (QC): 5 (-11/01/17) On/Off Footwear (QC): 5 (-11/01/17) Toileting(FIM): 6 (met-11/01/17) Toileting Hygiene (QC): 6 (-11/01/17) Toilet/Commode Transfer(FIM): 6 (-11/01/17) Toilet/Commode Transfer (QC): 6 (met-11/01/17) Shower Transfer(FIM): 5 (-11/01/17) Additional Goals: 1-Demonstrate ADL Tasks, 2-Verbalize Understanding, 3- ImproveStrength/[place] 1=Demonstrate adherence to instructed precautions during ADL tasks. 2=Patient will verbalize/demonstrate understanding of assistive devices/ modifications for ADL. 3=Patient will improve strength/tolerance for activity to enable patient to perform ADL's. JOSÉ MIGUEL DOOLEY PT Nov 02, 2017 08:10
[2017-11-02] MEDS: FOLIC ACID 1 MG TAB PO SCH (09:06)
[2017-11-02] MEDS: SENNA W/DOCUSATE (SENOKOT S) TABLET PO SCH (09:06)
[2017-11-02] MEDS: DILTIAZEM SR 90 MG (CARDIZEM LA) PO SCH (09:06)
[2017-11-02] MEDS: ASPIRIN E.C. 81 MG (ECOTRIN) TAB PO SCH (09:06)
[2017-11-02] MEDS: CARBOXYMETHYLCELLULOSE SODIUM OU SCH (09:09)
[2017-11-02] MEDS: BISACODYL 5 MG (DULCOLAX) TABLET PO SCH (09:09)
[2017-11-02] MEDS: KCL 10 MEQ TAB (MICRO K) PO SCH (09:09)
[2017-11-02] MEDS: MILK OF MAGNESIA 400 MG/5 ML 30 ML UDC PO PRN (09:09)
[2017-11-02] MEDS ORDERED: LEVO125T6 PO (11:07)
--- NOTE | 2017-11-02 13:19 | Therapy Team Discharge Summary ---
Therapy Discharge Summary Discharge Recommendations Date of Discharge Therapy D/C Recommendations: Home w/ Family Support, Occupational Therapy Home Care, [facility] (TCU/NH) Occupational Therapy Pt was seen for skilled OT to increase her independence in basic self care after a fall with resultant humeral fx. Treatment interventions complicated by low vision due to glaucoma, with patient legally blind. On admission she needed min/CGA assist with eating, grooming, bathing, toileting, toilet transfer and shower transfer, mod assist upper body dressing and max assist lower body dressing. By discharge she was modified independent with eating, grooming, toileting, toilet and shower transfer and setup for bathing and dressing (due to low vision). Equipment used included grab bars, shower bench, hand held shower, cane or pancho walker. She was able to do her R UE exercises and used her hand functionally, while maintaining shoulder immobilization. Home health OT recommended. See tx plan for goals met. DC OT. Decreased UE Strength, Dependent Transfers, Impaired Funct Balance, Impaired Self-Care Skills, Restricted Funct UE ROM PT Stitch Cleaner Goals Residential Goals PT Residential Goals Time Frame: Nov 12, 2017 Transfers (B,C,W/C) (FIM): 5 Roll Left to Right (QC): 4 Sit to Lying (QC): 4 Lying-Sitting on Side/Bed(QC): 4 Sit to Stand (QC): 4 Chair/Sto-uv-Mirwt Xfer(QC): 4 Car Transfer (QC): 4 Gait (FIM): 2 Distance: 50' Walk 10 feet (QC): 4 Walk 10ft-Uneven Surface(QC): 4 Walk 50ft with 2 Turns (QC): 4 Walk 150 ft (QC): 4 Gait Level of Assist: 4 Gait Assistive Device: Walker Pancho Stairs (FIM): 1 # of Steps: 1 1 Step (curb) (QC): 3 Stairs Level Of Assist: 4 OT Residential Goals Stitch Cleaner Goals Time Frame: Nov 09, 2017 Eating (FIM): 5 (met-11/01/17) Eating (QC): 5 (met-11/01/17) Oral Hygiene (QC): 5 (met-11/01/17) Grooming(FIM): 5 (met-11/01/17) Bathing(FIM): 4 (met-11/01/17) Shower/Bathe Self (QC): 3 (met-11/01/17) Upper Body Dressing(FIM): 5 (met-11/01/17) Upper Body Dressing (QC): 5 (met-11/01/17) Lower Body Dressing(FIM): 5 (met-11/01/17) Lower Body Dressing (QC): 5 (met-11/01/17) On/Off Footwear (QC): 5 (met-11/01/17) Toileting(FIM): 6 (met-11/01/17) Toileting Hygiene (QC): 6 (met-11/01/17) Toilet/Commode Transfer(FIM): 6 (met-11/01/17) Toilet/Commode Transfer (QC): 6 (met-11/01/17) Shower Transfer(FIM): 5 (met-11/01/17) Additional Goals: 1-Demonstrate ADL Tasks, 2-Verbalize Understanding, 3- ImproveStrength/[place]itch[place] 1=Demonstrate adherence to instructed precautions during ADL tasks. 2=Patient will verbalize/demonstrate understanding of assistive devices/ modifications for ADL. 3=Patient will improve strength/tolerance for activity to enable patient to perform ADL's. MARIOLA COTTRELL OT Nov 02, 2017 13:19
[2017-11-02 15:50] VITALS: BP 157/73
--- NOTE | 2017-11-21 04:40 | DISCHARGE SUMMARY ---
DATE OF SERVICE: 11/02/2017 HISTORY OF PRESENT ILLNESS: The patient is a 77-year-old female who has been independent and living in her own home in [place], [place], who had a fall several weeks ago with a resulting proximal right humerus fracture, which was managed with an immobilizer in her home. She was sent home and subsequently stumbled and was found to have a knee abrasion on the right knee with effusion and seen in ED. She was referred to inpatient rehabilitation unit. She was not able to manage at home at this point. She does have family nearby, but lives alone. She had been independent prior to all this. PAST MEDICAL HISTORY: Falls, colon cancer, glaucoma, osteopenia, keratoconjunctivitis, blood clots, colon surgery over 10 years ago for colon cancer. She is followed by the [facility] in [place]. She is a retired PAR[employer] from local [employer]. She is a . MEDICAL COURSE: The patient was followed by Dr. Muñoz and Mehreen while on rehab unit. X-ray of the right humerus revealed slow healing and immobilizer was continued. Her constipation was treated. She was afebrile during her stay. Blood pressure 157/73 on 11/02, pulse 77, respirations 18, O2 sat 96% on room air. CBC on 10/23 showed WBC 6.8, H and H 12/35 and platelet count 178 K. Chemistry on 10/23 showed serum sodium 134, calcium 10.5, bilirubin total 1.4. UA was negative on 10/22. REHABILITATION COURSE: She was assessed by speech therapy and found to be cognitively intact and they signed off. PT notes upon admission, the patient was min assist for bed mobility, mod assist for transfers and was min assist for ambulation 10 feet with a padilla walker and sling, right arm. Upon discharge, the patient modified independent for bed mobility and transfers, modified independent for car transfers, can ambulate 200 feet with a single-point cane, modified independent. OT notes upon admission, the patient was min assist to contact guard assist for eating, grooming, bathing, toileting, toilet transfers and shower transfers, mod assist for upper body dressing, max assist for lower body dressing. By discharge, she was modified independent with eating, grooming, toileting, toilet and shower transfers and set up with bathing and dressing due to low vision. Home health care was recommended. DISCHARGE INSTRUCTIONS: The patient is discharged to home with home health clinic. She will have followup with Dr. Isidro, her orthopedist and [facility] for primary care. Continue current diet. Continue sling. Continue right shoulder immobilizer. DISCHARGE MEDICATIONS: Tylenol 1000 mg p.o. q.8 hours p.r.n. mild pain, hydralazine 25 mg p.o. q.8 hours, lisinopril 5 mg p.o. at bedtime, ASA 81 mg p.o. daily, Dulcolax 5 mg p.o. b.i.d. p.r.n. constipation, Caltrate with D 1 tablet p.o. daily, Refresh eyedrops 1 drop both eyes t.i.d. p.r.n. dry eyes, TheraTears 1 drop both eyes b.i.d., Catapres patch 0.1 mg topically q. Sunday, vitamin B12 1000 mcg p.o. on Sunday, Sunday, Sunday, diltiazem 90 mg p.o. daily, fish oil 1 capsule b.i.d., folic acid 0.8 mg p.o. daily, Kyolic 1000 mg p.o. daily, levothyroxine 62.5 mcg p.o. daily, lisinopril 40 mg p.o. at bedtime, Lubrifresh ointment both eyes at bedtime, multivitamins 1 tablet p.o. daily, KCl 20 mEq p.o. q.a.m. and 10 mEq p.o. at bedtime, Senokot-S 1 to 2 tablets p.o. daily p.r.n. constipation, simvastatin 40 mg p.o. Sunday, Sunday, Sunday, and tramadol 50 mg p.o. q.6 hours p.r.n. moderate pain. DISCHARGE INSTRUCTIONS: Prescription for DME single-point cane provided. DISCHARGE DIAGNOSES: 1. Rehabilitation and contusion right knee status post fall, improved. 2. Fracture, right humerus, managed with a shoulder immobilizer. She will have followup with Dr. Isidro. 3. Constipation, treated. 4. Hypertension, controlled with medication. 5. Hypothyroidism, on replacement. 6. Anxiety, on medication. 7. Insomnia, on medication. 8. Dyspepsia on medication. 9. Status post fall. 10. Glaucoma, on eyedrops. 11. Osteoarthritis. 12. Disorder of bone density. 13. Keratoconjunctivitis, bilateral. 14. History of colon cancer. CONDITION AT DISCHARGE: Improved and stable. PROGNOSIS: Rehab prognosis appears good for some continued improvement at home; however, due to her low vision multiple falls, orthopedic injuries. She may want to consider more formal assisted living setting in the near future. Job ID: [id number] DocumentID: [id number] Dictated Date: 11/20/2017 11:56:07 Water Treatment Plant Operator Date: 11/21/2017 04:39:27 Dictated By: GURINDER MUÑOZ MD MTDD
== END 2017-11-02 15:55 | disposition home health service (06) | DRG 950 ==
PROVIDERS: ADMIT Physical Medicine & Rehabilitation; ATTEND Physical Medicine & Rehabilitation
DX: S80.01XD Contusion of right knee, subsequent encounter (principal); S42.301D Unspecified fracture of shaft of humerus, right arm, subsequent encounter for fracture with routine healing; S00.83XD Contusion of other part of head, subsequent encounter; K59.00 Constipation, unspecified; I10 Essential (primary) hypertension; E03.9 Hypothyroidism, unspecified; F41.9 Anxiety disorder, unspecified; G47.00 Insomnia, unspecified; R10.13 Epigastric pain; H40.9 Unspecified glaucoma; M19.91 Primary osteoarthritis, unspecified site; M85.80 Other specified disorders of bone density and structure, unspecified site; H16.223 Keratoconjunctivitis sicca, not specified as Sjogren's, bilateral; Z85.038 Personal history of other malignant neoplasm of large intestine; Z86.718 Personal history of other venous thrombosis and embolism; W19.XXXD Unspecified fall, subsequent encounter
CPT/HCPCS: 36415; 73060; 80053; 81000; 85027